=== PATIENT | male | born 1960 | race Caucasian/White ===

== ENCOUNTER → 2016-10-14 | Outpatient (CLI) | payer OTHER ==
--- NOTE | 2016-10-14 19:52 | CT ---
EXAMINATION TYPE: CT abdomen pelvis w con DATE OF EXAM: 10/14/2016 7:33 PM COMPARISON: NONE HISTORY: Pt states of LLQ lump and abdominal pain. Hx of diverticulosis. CT DLP: 956.8 mGycm Automated exposure control for dose reduction was used. TECHNIQUE: Helical acquisition of images was performed from the lung bases through the pelvis. CONTRAST: Performed with Oral Contrast and with IV Contrast, patient injected with 100 mL of Omnipaque 300. FINDINGS: Lung bases are clear. There is no pleural effusion. Liver spleen pancreas gallbladder appear normal. Bile ducts are not dilated. There is a left adrenal 2 cm nodule. Kidneys show satisfactory contrast opacification. There is no hydronephrosis. There is n o retroperitoneal adenopathy. There is no ascites. There is wall thickening and fat stranding involving the lower descending colon and the proximal sigm oid colon. There are multiple sigmoid diverticula. Bladder distends smoothly. Appendix appears normal . IMPRESSION: THERE IS A LONG SEGMENT OF LOWER DESCENDING COLON AND PROXIMAL SIGMOID COLON WITH INFLAMMATORY CHANGE S CONSISTENT WITH DIVERTICULITIS OR COLITIS. SIGMOID DIVERTICULOSIS. NORMAL APPENDIX. NO ABSCESS SEEN . 2 CM LEFT ADRENAL NODULE.
== END | disposition home or self-care (01) ==
LOC: RADCTMAIN 19:09
PROVIDERS: ATTEND Family Medicine
DX: K57.30 Diverticulosis of large intestine without perforation or abscess without bleeding (principal); E27.8 Other specified disorders of adrenal gland
CPT/HCPCS: 74177; Q9967

== ENCOUNTER 2018-08-18 09:32 | Inpatient (IN) | payer OTHER ==
[2018-08-18] MEDS ORDERED: KETOROLAC 30 MG/ML 1 ML VIAL IVP STA (10:21)
[2018-08-18] MEDS ORDERED: ONDANSETRON 4 MG/2 ML VIAL IVP STA (10:21)
[2018-08-18] MEDS ORDERED: SODIUM CHLORIDE 0.9% 500 ML 500 ML IV STA (10:21)
--- NOTE | 2018-08-18 10:24 | ED ---
General Adult HPI - General Chief complaint: Abdominal Pain Stated complaint: RT FLANK PAIN, NAUSEA Time Seen by Provider: 08/18/18 10:07 Source: patient Mode of arrival: ambulatory Limitations: no limitations - History of Present Illness Initial comments: Dictation was produced using [employer] dictation software. please excuse any grammatical, word or spelling errors. Chief Complaint: 58-year-old male recently admitted for pneumonia presents with postprandial abdominal pain History of Present Illness: Is 4-year-old male presents with chief complaint of abdominal pain he has past medical history of dyslipidemia, hypertension and pneumonia. Patient's past medical history of hernia repair. Patient states that over the past several days he's been having gradually worsening right upper quadrant pain. He states that this pain is constant and exacerbated with oral intake. Patient states pain is sharp and severe radiates to the back. Patient also having some constitutional symptoms including chills and night sweats. Patient states his symptoms were severe overnight and he was unable to sleep. This morning he woke with worsening sharp pain came to the emergency department. Patient denies any nausea vomiting. Patient states he's been having bowel movements however less frequent than usual. Denies any hard stools. No history of abdominal surgery outside of hernia surgery. The ROS documented in this emergency department record has been reviewed and confirmed by me. Those systems with pertinent positive or negative responses have been documented in the HPI. All other systems are other negative and/or noncontributory. PHYSICAL EXAM: General Impression: Alert and oriented x3, not in acute distress HEENT: Normocephalic atraumatic, extra-ocular movements intact, pupils equal and reactive to light bilaterally, mucous membranes moist. Cardiovascular: Heart regular rate and rhythm, S1&S2 audible, no murmurs, rubs or gallops Chest: Lungs clear to auscultation bilaterally, no rhonchi, no wheeze, no rales Abdomen: Right upper quadrant abdominal pain to palpation, positive Feliz sign. Musculoskeletal: Pulses present and equal in all extremities, no peripheral edema Motor: Power 5/5 bilaterally, no focal deficits noted Neurological: CN II-XII grossly intact, no focal motor or sensory deficits noted Skin: Intact with no visualized rashes Psych: Normal affect and mood ED course: 58-year-old male with right upper quadrant pain. Signs upon arrival are within acceptable limits. Abdominal examination is positive for Feliz's sign. Patient in mildly acute distress secondary to pain. Laboratory evaluation obtained. Leukocytosis of 15.2. Rest of CBC unremarkable. Coag panel shows INR 1.2. Metabolic panel shows mild transaminitis with alk phos of 213. No elevated bilirubins. Urinalysis unremarkable. Abdominal ultrasound was obtained showing hypoechogenicity of the pancreatic parenchyma which may relate to pancreatitis. There is also pain hepatic vein thrombosis with heterogeneity in the hepatic parenchyma. Is also right hepatic mass of 4.3 cm. Fundings could represent hepatocellular carcinoma. There is also multiple hepatic cysts. Mild gallbladder wall thickening however does not suggest acute cholecystitis. Given hepatic vein thrombosis in acute onset of symptoms. Restart patient on heparin. Discussed patient case with Dr. Cerrato gastroenterology who is agreeable for patient be admitted here in this hospital. Patient also given Unasyn for possible intra- abdominal infection. Vascular surgery and oncology be on consult. Be admitted. - Related Data Home Medications Medication Instructions Recorded Confirmed amLODIPine BESYLATE/BENAZEPRIL 1 cap PO Q48H 08/18/18 08/18/18 [Lotrel 10-20 MG] Allergies Allergy/AdvReac Type Severity Reaction Status Date / Time decongestant AdvReac chest Uncoded 10/08/15 07:51 tightness Review of Systems ROS Statement: Those systems with pertinent positive or pertinent negative responses have been documented in the HPI. ROS Other: All systems not noted in ROS Statement are negative. Past Medical History Past Medical History: Hypertension, Pneumonia History of Any Multi-Drug Resistant Organisms: None Reported Past Surgical History: Hernia Repair Past Anesthesia/Blood Transfusion Reactions: No Reported Reaction Past Psychological History: No Psychological Hx Reported Smoking Status: Current every day smoker Past Alcohol Use History: Rare Past Drug Use History: Marijuana General Exam Limitations: no limitations Course Vital Signs 08/18/18 08/18/18 09:45 12:35 Temperature 98.1 F Pulse Rate 96 78 Respiratory 18 18 Rate Blood Pressure 141/77 98/60 O2 Sat by Pulse 98 96 Oximetry Medical Decision Making - Lab Data Result diagrams: 08/18/18 10:38 08/18/18 10:38 Lab Results 08/18/18 08/18/18 08/18/18 Range/Units 10:38 10:38 10:38 WBC 15.2 H (3.8-10.6) k/uL RBC 3.65 L (4.30-5.90) m/uL Hgb 11.8 L (13.0-17.5) gm/dL Hct 35.7 L (39.0-53.0) % MCV 97.9 D (80.0-100.0) fL MCH 32.3 (25.0-35.0) pg MCHC 33.0 (31.0-37.0) g/dL RDW 13.2 (11.5-15.5) % Plt Count 453 H (150-450) k/uL Neutrophils % 85 % Lymphocytes % 7 % Monocytes % 6 % Eosinophils % 1 % Basophils % 0 % Neutrophils # 12.9 H (1.3-7.7) k/uL Lymphocytes # 1.1 (1.0-4.8) k/uL Monocytes # 0.9 (0-1.0) k/uL Eosinophils # 0.2 (0-0.7) k/uL Basophils # 0.0 (0-0.2) k/uL PT (9.0-12.0) sec INR (<1.2) Sodium 133 L (137-145) mmol/L Potassium 3.8 (3.5-5.1) mmol/L Chloride 100 (98-107) mmol/L Carbon Dioxide 23 (22-30) mmol/L Anion Gap 10 mmol/L BUN 14 (9-20) mg/dL Creatinine 0.51 L (0.66-1.25) mg/dL Est GFR (CKD-EPI)AfAm >90 (>60 ml/min/1.73 sqM) Est GFR (CKD-EPI)NonAf >90 (>60 ml/min/1.73 sqM) Glucose 114 H (74-99) mg/dL Calcium 8.8 (8.4-10.2) mg/dL Total Bilirubin 1.0 (0.2-1.3) mg/dL AST 48 (17-59) U/L ALT 110 H (21-72) U/L Alkaline Phosphatase 313 H (38-126) U/L Total Creatine Kinase 21 L (55-170) U/L CK-MB (CK-2) <0.2 (0.0-2.4) ng/mL CK-MB (CK-2) Rel Index Troponin I <0.012 (0.000-0.034) ng/mL Total Protein 7.5 (6.3-8.2) g/dL Albumin 3.2 L (3.5-5.0) g/dL Lipase 58 (23-300) U/L Urine Color Urine Appearance (Clear) Urine pH (5.0-8.0) Ur Specific [place] (1.001-1.035) Urine Protein (Negative) Urine Glucose (UA) (Negative) Urine Ketones (Negative) Urine Blood (Negative) Urine Nitrite (Negative) Urine Bilirubin (Negative) Urine Urobilinogen (<2.0) mg/dL Ur Leukocyte Esterase (Negative) 08/18/18 08/18/18 Range/Units 10:38 10:38 WBC (3.8-10.6) k/uL RBC (4.30-5.90) m/uL Hgb (13.0-17.5) gm/dL Hct (39.0-53.0) % MCV (80.0-100.0) fL MCH (25.0-35.0) pg MCHC (31.0-37.0) g/dL RDW (11.5-15.5) % Plt Count (150-450) k/uL Neutrophils % % Lymphocytes % % Monocytes % % Eosinophils % % Basophils % % Neutrophils # (1.3-7.7) k/uL Lymphocytes # (1.0-4.8) k/uL Monocytes # (0-1.0) k/uL Eosinophils # (0-0.7) k/uL Basophils # (0-0.2) k/uL PT 12.3 H (9.0-12.0) sec INR 1.2 H (<1.2) Sodium (137-145) mmol/L Potassium (3.5-5.1) mmol/L Chloride (98-107) mmol/L Carbon Dioxide (22-30) mmol/L Anion Gap mmol/L BUN (9-20) mg/dL Creatinine (0.66-1.25) mg/dL Est GFR (CKD-EPI)AfAm (>60 ml/min/1.73 sqM) Est GFR (CKD-EPI)NonAf (>60 ml/min/1.73 sqM) Glucose (74-99) mg/dL Calcium (8.4-10.2) mg/dL Total Bilirubin (0.2-1.3) mg/dL AST (17-59) U/L ALT (21-72) U/L Alkaline Phosphatase (38-126) U/L Total Creatine Kinase (55-170) U/L CK-MB (CK-2) (0.0-2.4) ng/mL CK-MB (CK-2) Rel Index Troponin I (0.000-0.034) ng/mL Total Protein (6.3-8.2) g/dL Albumin (3.5-5.0) g/dL Lipase (23-300) U/L Urine Color Yellow Urine Appearance Clear (Clear) Urine pH 6.5 (5.0-8.0) Ur Specific [place] 1.013 (1.001-1.035) Urine Protein Trace H (Negative) Urine Glucose (UA) Negative (Negative) Urine Ketones Negative (Negative) Urine Blood Negative (Negative) Urine Nitrite Negative (Negative) Urine Bilirubin Negative (Negative) Urine Urobilinogen 2.0 (<2.0) mg/dL Ur Leukocyte Esterase Negative (Negative) Disposition Clinical Impression: Hepatic vein thrombosis Disposition: ADMITTED IP TO THIS HOSP Condition: Fair Referrals: Mary Alvarado DO [Primary Care Provider] - 1-2 days Decision Time: 13:40
[2018-08-18 11:20] LABS: INR 1.2 (<1.2); Prothrombin Time 12.3 sec (9.0-12.0)
[2018-08-18 11:25] LABS: ALT 110 U/L (21-72); AST 48 U/L (17-59); Albumin 3.2 g/dL (3.5-5.0); Alkaline Phosphatase 313 U/L (38-126); Anion Gap 10 mmol/L; Blood Urea Nitrogen 14 mg/dL (9-20); Calcium 8.8 mg/dL (8.4-10.2); Carbon Dioxide 23 mmol/L (22-30); Chloride 100 mmol/L (98-107); Glucose 114 mg/dL (74-99); Lipase 58 U/L (23-300); Potassium 3.8 mmol/L (3.5-5.1); Sodium 133 mmol/L (137-145); Total Protein 7.5 g/dL (6.3-8.2)
[2018-08-18 11:32] LABS: Basophils % (A) 0 %; Eosinophils # (A) 0.2 k/uL (0-0.7); Eosinophils % (A) 1 %; HCT 35.7 % (39.0-53.0); HGB 11.8 gm/dL (13.0-17.5); Lymphocytes # (A) 1.1 k/uL (1.0-4.8); Lymphocytes % (A) 7 %; MCH 32.3 pg (25.0-35.0); Mean Platelet Volume 7.1; Monocytes # (A) 0.9 k/uL (0-1.0); Monocytes % (A) 6 %; Neutrophils # (A) 12.9 k/uL (1.3-7.7); Neutrophils % (A) 85 %; Platelet Count 453 k/uL (150-450); RBC 3.65 m/uL (4.30-5.90); RDW 13.2 % (11.5-15.5); WBC 15.2 k/uL (3.8-10.6)
[2018-08-18 11:35] LABS: Appearance,Urine Clear (Clear); Bilirubin,Urine Negative (Negative); Blood,Urine Negative (Negative); Color,Urine Yellow; Glucose,Urine (UA) Negative (Negative); Ketones,Urine Negative (Negative); Leukocyte Esterase,Urine Negative (Negative); Nitrite,Urine Negative (Negative); PH, Urine 6.5 (5.0-8.0); Protein,Urine Trace (Negative); Specific Gravity,Urine 1.013 (1.001-1.035)
[2018-08-18 11:36] LABS: MCV 97.9 fL (80.0-100.0)
[2018-08-18 11:37] LABS: Creatine Kinase 21 U/L (55-170)
[2018-08-18 11:50] LABS: Creatine Kinase MB <0.2 ng/mL (0.0-2.4); Troponin I <0.012 ng/mL (0.000-0.034)
--- NOTE | 2018-08-18 11:58 | US ---
EXAMINATION TYPE: US abdomen complete DATE OF EXAM: 08/18/2018 COMPARISON: CT abdomen pelvis dated 10/14/2016 CLINICAL HISTORY: abdominal pain. Right flank pain. NPO per patient. EXAM MEASUREMENTS: Liver Length: 23.1 cm Gallbladder Wall: 0.4 cm CBD: 0.5 cm CHD: 0.5 cm Spleen: 14.1 cm Right Kidney: 13.1 x 6.2 x 6.6 cm Left Kidney: 11.9 x 5.4 x 5.9 cm Pancreas: Decreased echogenicity. Slightly prominent duct although nondilated. Liver: Enlarged in size, course and lobular in appearance. Right lobe cystic appearing cluster - 1. 1 x 1.0 x 1.0 cm. Left anterior lobe cystic appearing lesion - 2.3 x 2.3 x 1.9 cm. Right lobe focal heterogenicity vs lesion - 4.3 x 4.3 x 3.9 cm. No vascular flow visualized in intrahepatic MPV wit h wall thickening Gallbladder: Enlarged in size with wall thickening. Evidence for sonographic Feliz's sign: neg CBD: wnl CHD: wnl Spleen: Enlarged in size Right Kidney: Appears enlarged in size Left Kidney: wnl Upper IVC: limited visualization Abd Aorta: no AAA visualized The intrahepatic portion of the IVC and proximal abdominal aorta are within normal limits. There is no evidence of cholelithiasis. Common bile duct is unremarkable. The visualized portions of the pollard creas are decreased in echogenicity. The spleen is enlarged. Kidneys are symmetric and free of hydr onephrosis. No renal lesions are seen. IMPRESSION: 1. Hypoechogenicity of the pancreatic parenchyma may correlate with pancreatitis. Correlate with seru m laboratory values. Additionally there is slight prominence of the main pancreatic duct that could b e further evaluated with MRCP. 2. Main hepatic vein thrombosis. Heterogeneity of the hepatic parenchyma may relate to the thrombosis . Additionally there is an ill-defined right hepatic mass measuring 4.3 cm. Tumor thrombus within the main hepatic vein is a possibility and would suggest hepatocellular carcinoma. Further characterizat ion is recommended with MRI abdomen (liver mass protocol). 3. Multiple hepatic cysts. 4. Gallbladder wall thickening may relate to the adjacent hepatocellular disease as there is no commo n bile duct enlargement to suggest acute cholecystitis. 5. Splenomegaly is likely on the basis of portal venous hypertension.
[2018-08-18] MEDS ORDERED: HEPARIN SODIUM,PORCINE 10,000 UNIT/ML 1 ML VIAL IV ONE (12:23)
[2018-08-18] MEDS ORDERED: AMPICILLIN-SULBACTAM 3 GM in SODIUM CHLORIDE 0.9% 100 ML IVPB STA (12:38)
[2018-08-18] MEDS: HEPARIN SOD,PORK IN 0.45% NACL 25,000 UNIT in 0.45% NACL 1 250ML.BAG IV SCH (12:49)
[2018-08-18] MEDS ORDERED: ONDANSETRON 4 MG/2 ML VIAL IVP PRN (13:41)
[2018-08-18] MEDS ORDERED: MORPHINE SULFATE 4 MG/ML SYRINGE IV PRN (13:41)
[2018-08-18] MEDS ORDERED: NALOXONE 0.4 MG/ML 1 ML VIAL IV PRN (13:41)
[2018-08-18] MEDS ORDERED: ACETAMINOPHEN TAB 325 MG TAB PO PRN (13:41)
--- NOTE | 2018-08-18 15:34 | XR ---
EXAMINATION TYPE: XR KUB DATE OF EXAM: 08/18/2018 CLINICAL HISTORY: Abdominal pain TECHNIQUE: Single upright abdominal radiograph was obtained. COMPARISON: None. FINDINGS: No dilated large or small bowel. Scattered few air-fluid levels within nondilated small bow el suggests ileus. Descending colonic air is noted. No pneumoperitoneum. Osseous structures are gross ly intact with mild S-shaped scoliotic curvature and mild femoral acetabular arthropathy. No suspicio us calcifications in the abdomen. IMPRESSION: Few air-fluid levels within nondilated small bowel suggests mild ileus. No pneumoperitone um.
[2018-08-18] MEDS: SODIUM CHLORIDE 0.9% 1,000 ML IV SCH (19:49)
[2018-08-18] MEDS ORDERED: ALPRAZolam 0.25 MG TAB PO PRN (21:25)
[2018-08-18] MEDS ORDERED: HYDROmorphone 0.5 MG/0.5 ML SYRINGE IVP PRN (21:25)
[2018-08-18] MEDS ORDERED: TEMAZEPAM 15 MG CAP PO PRN (21:25)
--- NOTE | 2018-08-18 22:10 | XR ---
History: ITS.REASON XR Reason: pneumonia Exam: XR CXR 1 VIEW Comparison: None available FINDINGS: Small linear opacity at the lateral right base may represent atelectasis or scar. The lungs are otherwise clear. The cardiac and mediastinal contours appear within limits. The visualized osseous structures appear within limits. IMPRESSION: Small linear opacity at the lateral right base may represent atelectasis or scar. The lungs are otherwise clear.
[2018-08-18] MEDS: IOPAMIDOL-300 CONTRAST 30 ML VIAL (ORAL USE) PO PRN ×2 (22:15→23:23)
[2018-08-18] MEDS: HYDROcodone/APAP 5-325MG 1 EACH TAB PO PRN (22:56)
--- NOTE | 2018-08-19 02:26 | CT ---
History: ITS.REASON CT Reason: hepatic vein thrombosis Exam: CT CHEST With Contrast Technique more: CTDI is 8.8 mGy and DLP is 905.6 mGy-cm. Technique more: This CT exam was performed using one or more of the following dose reduction techniques: automated exposure control, adjustment of the mA and/or kV according to patient size, and/or use of iterative reconstruction technique. Comparison: None available FINDINGS: The central airways are patent. Mild basilar atelectasis. No focal consolidation. No nodule or mass identified. Thoracic aorta appears within limits. Mild LAD coronary calcification. No evidence of large central or hilar pulmonary embolism. No pericardial or pleural effusion. No lymphadenopathy. IMPRESSION: Mild basilar atelectasis. Mild LAD coronary calcification. Exam: CT ABDOMEN + PELVIS With Contrast Technique more: CTDI is 8.8 mGy and DLP is 905.6 mGy-cm. Technique more: This CT exam was performed using one or more of the following dose reduction techniques: automated exposure control, adjustment of the mA and/or kV according to patient size, and/or use of iterative reconstruction technique. Comparison: 10/14/2016 FINDINGS: Heterogeneous appearance of the liver most of which may be related to altered perfusion given the left portal vein occlusion and near occlusion of the right portal vein. Heterogeneous masslike area at the posterior liver measuring approximately 8 x 4.6 x 9.3 cm axial 19 series 301 and coronal 49. Hepatic cyst. Left adrenal nodule has not significantly changed in appearance since 2017. Small nonobstructing stone lower pole right kidney. Bilateral perinephric stranding is nonspecific. Symmetric nephrograms without hydronephrosis. The other solid organs and partially contracted gallbladder appear within limits. Prominent-appearing katina hepatis nodes. Abnormal appearance of the descending left colon with approximate 4 cm collection of adjacent extraluminal heterogeneous soft tissue and foci of gas for example axial 33 series 301 and coronal 36 concerning for diverticulitis with localized contained perforation. Areas of wall thickening of the descending and proximal sigmoid colon may be reactive with infiltrative process or neoplasm not excluded. No small bowel dilation or free air in the upper abdomen. Normal caliber appendix without secondary signs. Fat-containing right inguinal hernia. The bladder appears within limits. Small pelvic free fluid. Small fat- containing umbilical hernia again noted. IMPRESSION: Abnormal appearance of the descending left colon with approximate 4 cm collection of adjacent extraluminal heterogeneous soft tissue and foci of gas for example axial 33 series 301 and coronal 36 concerning for diverticulitis with localized contained perforation. Areas of wall thickening of the descending and proximal sigmoid colon may be reactive with infiltrative process or neoplasm not excluded. Heterogeneous appearance of the liver most of which may be related to altered perfusion given the left portal vein occlusion and near occlusion of the right portal vein. The main portal vein, SMV and splenic vein otherwise appear patent-containing contrast. Heterogeneous masslike area at the posterior liver measuring approximately 8 x 4.6 x 9.3 cm axial 19 series 301 and coronal 49. Considerations would include developing abscess/phlegmon from complication of diverticulitis, metastatic disease or primary liver neoplasm among other etiologies and requires further clinical correlation. May consider further characterization with MRI with liver mass protocol. Left adrenal nodule has not significantly changed in appearance since 2017. [employer] 08/19/18 02:22 Call Nurse 3S FABIO Moreno on 08/19 02:21 (-05:00)
[2018-08-19 03:56] LABS: Basophils % (A) 0 %; Eosinophils # (A) 0.1 k/uL (0-0.7); Eosinophils % (A) 1 %; HCT 32.2 % (39.0-53.0); HGB 10.7 gm/dL (13.0-17.5); Lymphocytes # (A) 1.4 k/uL (1.0-4.8); Lymphocytes % (A) 13 %; MCHC 33.2 g/dL (31.0-37.0); MCV 99.5 fL (80.0-100.0); Mean Platelet Volume 6.2; Monocytes # (A) 0.5 k/uL (0-1.0); Monocytes % (A) 5 %; Neutrophils # (A) 8.7 k/uL (1.3-7.7); Neutrophils % (A) 81 %; Platelet Count 391 k/uL (150-450); RBC 3.24 m/uL (4.30-5.90); RDW 13.1 % (11.5-15.5); WBC 10.8 k/uL (3.8-10.6)
[2018-08-19 04:01] LABS: ALT 117 U/L (21-72); AST 71 U/L (17-59); Albumin 2.7 g/dL (3.5-5.0); Alkaline Phosphatase 400 U/L (38-126); Anion Gap 8 mmol/L; Blood Urea Nitrogen 8 mg/dL (9-20); Calcium 8.2 mg/dL (8.4-10.2); Carbon Dioxide 24 mmol/L (22-30); Chloride 104 mmol/L (98-107); Glucose 92 mg/dL (74-99); Potassium 4.1 mmol/L (3.5-5.1); Sodium 136 mmol/L (137-145); Total Bilirubin 0.7 mg/dL (0.2-1.3); Total Protein 6.5 g/dL (6.3-8.2)
[2018-08-19] MEDS: HYDROcodone/APAP 5-325MG 1 EACH TAB PO PRN ×2 (05:14→12:18)
[2018-08-19] MEDS: HEPARIN SOD,PORK IN 0.45% NACL 25,000 UNIT in 0.45% NACL 1 250ML.BAG IV SCH (05:15)
[2018-08-19] MEDS: HEPARIN SODIUM,PORCINE 5,000 UNIT/ML 1 ML VIAL IV PRN ×3 (05:22→18:24)
--- NOTE | 2018-08-19 06:21 | HP ---
HISTORY AND PHYSICAL DATE OF SERVICE: 08/18/2018 CHIEF COMPLAINT: Abdominal pain. HISTORY OF PRESENT ILLNESS: This 58-year-old gentleman with a past medical history of multiple medical problems including hypertension, pneumonia, history of hernia repair, history of nicotine dependence being followed by Dr. 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 The patient apparently had an episode of pneumonia in June. Patient was given antibiotics, but subsequently patient was complaining of significant weakness. The patient is tired and currently the patient is complaining of abdominal pain, abdominal pain which radiated to the left side. The patient came to [facility] and admitted for further evaluation and treatment. The patient also complains of dyspepsia. On admission the patient underwent ultrasound of the abdomen which showed multiple findings such as possibly lobular liver with cystic appearing structure and heterogeneous lesion was also noted. The patient also had hypoechogenicity in the the pancreatic parenchyma with possible pancreatitis. The patient also had hepatic vein thrombosis. The patient also had gallbladder thickening and splenomegaly. The patient was admitted for further evaluation and treatment. There is no history of any fever, rigors. No history of headache, loss of consciousness, seizures. Patient also had weight loss about 7 pounds at this time. PAST MEDICAL HISTORY: History of hypertension, history of recent pneumonia, hernia repair, history umbilical hernia. MEDICATIONS: Medications prior to admission include Lotrel 10/20 mg p.o. q.48 hours. ALLERGIES: Allergies are DECONGESTANT. FAMILY HISTORY: History of CAD, CABG, in 89-year-old. SOCIAL HISTORY: History of alcohol, THC, smoking. REVIEW OF SYSTEMS: ENT: No diminished hearing or diminished vision. CARDIOVASCULAR SYSTEM: No angina or palpitations. RESPIRATORY SYSTEM: No cough or hemoptysis. GI: As mentioned earlier. : No dysuria. NERVOUS SYSTEM: No numbness or weakness. ALLERGY/IMMUNOLOGY: No history of asthma or hayfever. MUSCULOSKELETAL: As mentioned earlier. HEMATOLOGY/ONCOLOGY: No history of anemia. ENDOCRINE: No history of diabetes mellitus or hypothyroidism. CONSTITUTIONAL: As mentioned earlier. DERMATOLOGY: Negative. RHEUMATOLOGY: Negative. PSYCHIATRY: As mentioned earlier. PHYSICAL EXAMINATION: The patient is alert and oriented x3. Pulse is 84, blood pressure 101/65, respirations 16, temperature 98.2, pulse ox 95% on room air. HEENT: Conjunctivae normal. NECK: No jugular venous distention. CARDIOVASCULAR: S1, S2 muffled. RESPIRATORY: Breath sounds diminished at the bases. A few scattered rhonchi. No crackles. ABDOMEN: Soft. Slight distention. Otherwise, mild tenderness. No mass palpable. No ascites. Bowel sounds diminished. No hepatosplenomegaly clinically. LEGS: No edema. No swelling. NERVOUS SYSTEM: Higher functions as mentioned earlier. Moves all 4 limbs. No focal motor deficits. LYMPHATICS: No lymphadenopathy of the neck, axillae or groin. SKIN: No ulcer, rash or bleeding. JOINTS: No active deforming arthropathy. LABS: WBC 15.2, hemoglobin 11.8. INR is 1.2. Sodium 133, otherwise ALT is 110. ASSESSMENT: 1. Abdominal pain with hepatic lesion, rule out malignancy. 2. Hepatic venous thrombosis. 3. History of recent pneumonia. 4. History of recent weight loss. 5. Hypokalemia. 6. Increased ALT and alkaline phosphatase. 7. Mild coagulopathy. 8. Increased WBC. 9. Anemia of undetermined recent origin. 10.Hypertension. 11.History of hypercholesterolemia. 12.History of hernia repair. 13.History of nicotine dependence. 14.History of THC. RECOMMENDATIONS AND DISCUSSION: In this 58-year-old gentleman who presented with multiple complex medical issues , at this time I recommend to continue current medications, continue symptomatic treatment. Otherwise at this time I recommend repeat labs. Symptomatic treatment. Gastroenterology and hematology consultation. Patient started on IV heparin. The exact etiology of the hepatic venous thrombosis unclear at this time. We will start the workup with a CT scan of the abdomen pelvis and chest also. Otherwise, overall prognosis extremely guarded because of multiple complex medical issues. Further recommendations to follow A copy of dictation forwarded to Dr. Alvarado who is the primary physician. MMODL / IJN: [id number] / [facility] CENTERMeghann
[2018-08-19] MEDS: PANTOPRAZOLE 40 MG/10 ML VIAL IV SCH (09:43)
[2018-08-19] MEDS: amLODIPine 10 MG TAB PO SCH (09:44)
[2018-08-19] MEDS: LISINOPRIL 20 MG TAB PO SCH (09:44)
[2018-08-19] MEDS: LEVOFLOXACIN 500MG-D5W PMX 500 MG in DEXTROSE/WATER 1 100ML.BAG IVPB SCH (13:54)
[2018-08-19] MEDS: metroNIDAZOLE-NS PMX 500 MG in SALINE 1 100ML.BAG IVPB SCH (17:00)
[2018-08-19] MEDS: SODIUM CHLORIDE 0.9% 1,000 ML IV SCH (17:01)
--- NOTE | 2018-08-19 20:21 | PN ---
PROGRESS NOTE DATE OF SERVICE: 08/19/2018 This 58-year-old gentleman admitted with abdominal pain had hepatic venous thrombosis. The patient underwent a CT scan of the chest, abdomen and pelvis with contrast last night, which showed abnormal appearance of the descending left colon with heterogeneous collection, possibly diverticulitis or contained perforation and heterogeneous appearance of liver and portal occlusion in portal vein, heterogeneous masslike lesion in the posterior liver also noted. PAST MEDICAL HISTORY: Reviewed. REVIEW OF SYSTEM: CARDIOVASCULAR: No angina. RESPIRATORY: As mentioned. GI: As mentioned earlier. : As mentioned. NERVOUS SYSTEM: No numbness. CURRENT MEDICATIONS: Reviewed and include: 1. Tylenol 650 q.6h p.r.n. 2. [place] 5 mg p.r.n. 3. Xanax. 4. Norvasc. 5. Heparin. 6. Dilaudid. 7. Levaquin 500 mg daily. 8. Zestril. 9. Flagyl 500 mg a day. 10.Zofran. 11.Protonix. 12.Restoril. PHYSICAL EXAM: Patient is alert, oriented x3. Pulse 90, blood pressure 140/60, respiration 18, temperature 98 degrees, pulse ox 94 percent. Oral mucosa moist. Neck is no jugular venous distention. No carotid bruit. No lymph node enlargement. CARDIOVASCULAR: S1, S2. RESPIRATORY: Breath sounds diminished in the bases. No rhonchi, no crackles. ABDOMEN: Soft. Mild diffuse tenderness. No guarding, no mass palpable. LEGS: No edema. NERVOUS SYSTEM: No focal deficits. LABS: At this time shows WBC 10.8, hemoglobin 10.7, sodium 136. AST, ALT and other labs are noted. Alkaline phosphatase is 400. C-reactive protein is 247, albumin is 2.7. ASSESSMENT: 1. Acute abdominal pain with possible acute diverticulitis, rule out perforation and abscess of the descending colon. 2. Hepatic venous thrombosis. 3. History of recent pneumonia. 4. History of recent weight loss. 5. Hypokalemia. 6. Increased ALT and alkaline phosphatase. 7. Mild coagulopathy. 8. Increased WBC. 9. Anemia of undetermined origin. 10.Hypertension. 11.History of hypercholesteremia. 12.History of hernia repair. 13.History of nicotine dependence. 14.History of THC. 15.FULL CODE. RECOMMENDATIONS AND DISCUSSION: I recommend to continue current management and continue with broad-spectrum IV antibiotics. Levaquin, Flagyl. Cultures negative. Follow closely with multiple consultants. Continue with IV heparin. Possible colonoscopy and other workup later. Otherwise prognosis guarded because of multiple complex medical issues. Further recommendations to follow. We will await Hematology Oncology evaluation as well. Further recommendations to follow. Patient might need liver biopsy and associated workup also. MMODL / IJN: [id number] / MTDMeghann
--- NOTE | 2018-08-19 20:27 | P.GSCN ---
History of Present Illness Consult date: 08/19/18 Reason for Consult: hepatic vein thrombosis History of present illness: 58 year old male with recent history of pneumonia which was treated in presented to the hospital yesterday secondary to abdominal pain at his right upper quadrant which started a couple days prior and has been getting progressively worse. Patient states having radiating pain across abdomen to his back. He denies any fevers, nausea, vomiting, chest pain or shortness of breath. Admits to night sweats, and chills overnight. Review of Systems - Constitutional Reports weakness, Reports weight loss - Cardiovascular Denies chest pain, Denies claudication, Denies lightheadedness - Gastrointestinal Reports abdominal pain - Musculoskeletal Reports as per HPI Past Medical History Past Medical History: Hypertension, Pneumonia Additional Past Medical History / Comment(s): Recent pneumonia June, tx with antibiotics, past high cholesterol and htn but pt and had a lifestyle change 2 yrs aog and now pt has been taken off statin and his physician is weaning him off antihypertensive med, since lifestyle changes pt has lost 32#, past colon polyps (bening) and diverticular disease. History of Any Multi-Drug Resistant Organisms: None Reported Past Surgical History: Hernia Repair Additional Past Surgical History / Comment(s): Umbilical hernia repair, colonoscopy/polypectomy, rhinoplasty, bilateral cataracts removed with lens implants, vasectomy. Past Anesthesia/Blood Transfusion Reactions: No Reported Reaction Smoking Status: Current every day smoker - Past Family History Father Family Medical History: Coronary Artery Disease (CAD) Additional Family Medical History / Comment(s): Father had CABG. He lived to be 93 yrs old. Mother Family Medical History: Dementia Additional Family Medical History / Comment(s): Mother is 88yrs old. Medications and Allergies Home Medications Medication Instructions Recorded Confirmed Type amLODIPine BESYLATE/BENAZEPRIL 1 cap PO Q48H 08/18/18 08/18/18 History [Lotrel 10-20 MG] Allergies Allergy/AdvReac Type Severity Reaction Status Date / Time decongestant AdvReac chest Uncoded 10/08/15 07:51 tightness Surgical - Exam Vital Signs Temp Pulse Resp BP Pulse Ox 98.1 F 96 18 141/77 98 08/18/18 09:45 08/18/18 09:45 08/18/18 09:45 08/18/18 09:45 08/18/18 09:45 palpable dp and pt pulses - General well developed, well nourished, no distress - Eyes PERRL, normal ocular movement - ENT normal pinna, normal nares - Neck no masses - Respiratory normal expansion left: dullness, wheezing, rales, absent breath sounds Results - Labs 08/19/18 03:31 08/19/18 03:31 Abnormal Lab Results - Last 24 Hours (Table) 08/18/18 08/18/18 08/19/18 Range/Units 21:37 21:37 03:31 WBC 10.8 H (3.8-10.6) k/uL RBC 3.24 L (4.30-5.90) m/uL Hgb 10.7 L (13.0-17.5) gm/dL Hct 32.2 L (39.0-53.0) % Neutrophils # 8.7 H (1.3-7.7) k/uL ESR 119 H (0-15) mm/hr APTT (22.0-30.0) sec Sodium (137-145) mmol/L BUN (9-20) mg/dL Creatinine (0.66-1.25) mg/dL Calcium (8.4-10.2) mg/dL AST (17-59) U/L ALT (21-72) U/L Alkaline Phosphatase (38-126) U/L C-Reactive Protein 247.0 H (<10.0) mg/L Albumin (3.5-5.0) g/dL 08/19/18 08/19/18 08/19/18 Range/Units 03:31 11:20 17:27 WBC (3.8-10.6) k/uL RBC (4.30-5.90) m/uL Hgb (13.0-17.5) gm/dL Hct (39.0-53.0) % Neutrophils # (1.3-7.7) k/uL ESR (0-15) mm/hr APTT 41.5 H 38.9 H (22.0-30.0) sec Sodium 136 L (137-145) mmol/L BUN 8 L (9-20) mg/dL Creatinine 0.59 L (0.66-1.25) mg/dL Calcium 8.2 L (8.4-10.2) mg/dL AST 71 H (17-59) U/L ALT 117 H (21-72) U/L Alkaline Phosphatase 400 H (38-126) U/L C-Reactive Protein (<10.0) mg/L Albumin 2.7 L (3.5-5.0) g/dL Diabetes panel 08/19/18 Range/Units 03:31 Sodium 136 L (137-145) mmol/L Potassium 4.1 (3.5-5.1) mmol/L Chloride 104 (98-107) mmol/L Carbon Dioxide 24 (22-30) mmol/L BUN 8 L (9-20) mg/dL Creatinine 0.59 L (0.66-1.25) mg/dL Glucose 92 (74-99) mg/dL Calcium 8.2 L (8.4-10.2) mg/dL AST 71 H (17-59) U/L ALT 117 H (21-72) U/L Alkaline Phosphatase 400 H (38-126) U/L Total Protein 6.5 (6.3-8.2) g/dL Albumin 2.7 L (3.5-5.0) g/dL Calcium panel 08/19/18 Range/Units 03:31 Calcium 8.2 L (8.4-10.2) mg/dL Albumin 2.7 L (3.5-5.0) g/dL Pituitary panel 08/19/18 Range/Units 03:31 Sodium 136 L (137-145) mmol/L Potassium 4.1 (3.5-5.1) mmol/L Chloride 104 (98-107) mmol/L Carbon Dioxide 24 (22-30) mmol/L BUN 8 L (9-20) mg/dL Creatinine 0.59 L (0.66-1.25) mg/dL Glucose 92 (74-99) mg/dL Calcium 8.2 L (8.4-10.2) mg/dL Adrenal panel 08/19/18 Range/Units 03:31 Sodium 136 L (137-145) mmol/L Potassium 4.1 (3.5-5.1) mmol/L Chloride 104 (98-107) mmol/L Carbon Dioxide 24 (22-30) mmol/L BUN 8 L (9-20) mg/dL Creatinine 0.59 L (0.66-1.25) mg/dL Glucose 92 (74-99) mg/dL Calcium 8.2 L (8.4-10.2) mg/dL Total Bilirubin 0.7 (0.2-1.3) mg/dL AST 71 H (17-59) U/L ALT 117 H (21-72) U/L Alkaline Phosphatase 400 H (38-126) U/L Total Protein 6.5 (6.3-8.2) g/dL Albumin 2.7 L (3.5-5.0) g/dL - Imaging CT scan - abdomen: report reviewed, image reviewed Assessment and Plan (1) Hepatic vein thrombosis Current Visit: Yes Status: Acute Priority: High Code(s): I82.0 - BUDD- CHIARI SYNDROME SNOMED Code(s): 88440694 Plan: Agree with heparin gtt. No surgical intervention at this time. Recommend continuing heparin and bridging to oral anticoagulation Thank you for the consult.
--- NOTE | 2018-08-19 21:35 | P.CONS ---
History of Present Illness - Reason for Consult Consult date: 08/19/18 New Cancer Diagnosis Requesting physician: Chin Perez - Chief Complaint Abdominal Pain - History of Present Illness Mr. Johnson is a very pleasant 58 year old male with known history of diverticulosis, diverticulitis, COPD, Tobacco abuse, Daily ALcohol use, and a recent history of pneumonia which was treated in June. He stated that ever since he was diagnosed with pneumonia he has not fully recovered. He denies any personal or family history of clotting disorders, or cancers. He denies any personal history of cirrhosis or hepatits. He presented to the hospital with complaints of right upper quadrant abdominal pain that radiated to his right side and back. Over the past two days stated was getting progressively worse. He denies any fevers, nausea, vomiting, chest pain or shortness of breath. Admits to night sweats, and chills overnight. He has had a pprox 35-40LB weight loss over the past 1.5 years but stated him and his were trying to eat better. He also states the abdominal bloating and distention is new, he had a normal BM this am. Abdominal ultrasound was obtained showing hypoechogenicity of the pancreatic parenchyma which may relate to pancreatitis. A hepatic vein thrombosis with heterogeneity in the hepatic parenchyma was also identified. There was abnormality representing a right hepatic mass of 4.3 cm. COncern was for a picture of hepatocellular carcinoma. Multiple hepatic cysts were identified. Mild gallbladder wall thickening however does not suggest acute cholecystitis. Given hepatic vein thrombosis in acute onset of symptoms he was initiated on a heparin drip in the emergency department. CT scan was ordered and completed. GI was consulted as well as General and Vascular surgery. We have also been consulted for the concern of a malignancy picture. at bedside this evening during consultation. We reviewed their full medical history and current findings on CT scan. CT Findings revealed Heterogeneous massllike area at the posterior liver 8x4.6x9.3cm, hepatic cysts identified, Left unchanged adrenal nodule, nonspecific bilateral perinephric stranding. Descending left colon reveal 4c, collection of adjacent extralumal soft tissue and focal gas diverticultis with localized perforation. Review of Systems A 14 point review of systems was assessed and completed and all negative except HPI Past Medical History Past Medical History: Hypertension, Pneumonia Additional Past Medical History / Comment(s): Recent pneumonia June, tx with antibiotics, past high cholesterol and htn but pt and had a lifestyle change 2 yrs aog and now pt has been taken off statin and his physician is weaning him off antihypertensive med, since lifestyle changes pt has lost 32#, past colon polyps (bening) and diverticular disease. History of Any Multi-Drug Resistant Organisms: None Reported Past Surgical History: Hernia Repair Additional Past Surgical History / Comment(s): Umbilical hernia repair, colonoscopy/polypectomy, rhinoplasty, bilateral cataracts removed with lens implants, vasectomy. Past Anesthesia/Blood Transfusion Reactions: No Reported Reaction Smoking Status: Current every day smoker - Past Family History Father Family Medical History: Coronary Artery Disease (CAD) Additional Family Medical History / Comment(s): Father had CABG. He lived to be 93 yrs old. Mother Family Medical History: Dementia Additional Family Medical History / Comment(s): Mother is 88yrs old. Medications and Allergies Home Medications Medication Instructions Recorded Confirmed Type amLODIPine BESYLATE/BENAZEPRIL 1 cap PO Q48H 08/18/18 08/18/18 History [Lotrel 10-20 MG] Allergies Allergy/AdvReac Type Severity Reaction Status Date / Time decongestant AdvReac chest Uncoded 10/08/15 07:51 tightness Physical Exam Vitals: Vital Signs Temp Pulse Pulse Pulse Resp BP BP 08/19/18 12:00 97.9 F 87 16 100/63 08/19/18 08:00 98.0 F 90 18 114/67 08/19/18 04:00 97.5 F L 79 16 116/71 08/19/18 00:00 97.1 F L 94 16 121/72 08/18/18 20:00 98.4 F 91 16 107/63 08/18/18 18:40 87 109/69 08/18/18 17:45 84 16 101/65 08/18/18 16:00 98.2 F 82 15 105/66 Pulse Ox 08/19/18 12:00 98 08/19/18 08:00 94 L 08/19/18 04:00 93 L 08/19/18 00:00 95 08/18/18 20:00 94 L 08/18/18 18:40 97 08/18/18 17:45 95 08/18/18 16:00 97 Intake and Output 08/18/18 08/19/18 08/19/18 22:59 06:59 14:59 Intake Total 654.244 308.838 739.915 Output Total 250 300 1 Balance 404.244 8.838 738.915 Intake: IV 20 10 Invasive Line 2 20 10 Intake, IV Titration 174.244 288.838 149.915 Amount Ampicillin-Sulbactam 3 gm 10 In Sodium Chloride 0.9% 100 ml @ 200 mls/hr IVPB ONCE STA Rx#:[id number] Heparin Sod,Pork in 0.45% 104.244 128.838 149.915 NaCl 25,000 unit In 0.45 % NaCl 1 250ml.bag @ 18 UNITS/KG/HR 12.24 mls/hr IV .[id number] KATE Rx#: [id number] Sodium Chloride 0.9% 1, 60 160 000 ml @ 20 mls/hr IV . Q24H KATE Rx#:[id number] Oral 480 580 Output: Urine 250 300 Stool 1 Other: Voiding Method Urinal Urinal Urinal # Voids 1 1 Weight 68.4 kg 68.4 kg Gen: NAD, ALert and happy Head NC, NT Eye: Non-icteric Neck Supple No lymphadenopathy cervical or axilla Lungs: Diminished bibasilar expiratory wheeze, No increased effort Heart: RRR, S1s2 Abdomen: appears distended, bloated, although soft, non tender Ext: No edema Neuro - non-focal Results CBC & Chem 7: 08/19/18 03:31 08/19/18 03:31 Labs: Abnormal Lab Results - Last 24 Hours (Table) 08/18/18 08/18/18 08/19/18 Range/Units 21:37 21:37 03:31 WBC 10.8 H (3.8-10.6) k/uL RBC 3.24 L (4.30-5.90) m/uL Hgb 10.7 L (13.0-17.5) gm/dL Hct 32.2 L (39.0-53.0) % Neutrophils # 8.7 H (1.3-7.7) k/uL ESR 119 H (0-15) mm/hr APTT (22.0-30.0) sec Sodium (137-145) mmol/L BUN (9-20) mg/dL Creatinine (0.66-1.25) mg/dL Calcium (8.4-10.2) mg/dL AST (17-59) U/L ALT (21-72) U/L Alkaline Phosphatase (38-126) U/L C-Reactive Protein 247.0 H (<10.0) mg/L Albumin (3.5-5.0) g/dL 08/19/18 08/19/18 Range/Units 03:31 11:20 WBC (3.8-10.6) k/uL RBC (4.30-5.90) m/uL Hgb (13.0-17.5) gm/dL Hct (39.0-53.0) % Neutrophils # (1.3-7.7) k/uL ESR (0-15) mm/hr APTT 41.5 H (22.0-30.0) sec Sodium 136 L (137-145) mmol/L BUN 8 L (9-20) mg/dL Creatinine 0.59 L (0.66-1.25) mg/dL Calcium 8.2 L (8.4-10.2) mg/dL AST 71 H (17-59) U/L ALT 117 H (21-72) U/L Alkaline Phosphatase 400 H (38-126) U/L C-Reactive Protein (<10.0) mg/L Albumin 2.7 L (3.5-5.0) g/dL CT scan - abdomen: report reviewed CT scan - chest: report reviewed CT scan - pelvis: report reviewed Assessment and Plan Plan: Assessment and Recommendations: 1. New Hepatic Vein THrombosis - Continue heparin drip at this time until a tissue biopsy of suspicious areas concerning for malignancy can be obtained 2. New Liver Mass: - Heterogenous masslike area @ posterior Liver 8x4.6x9.3 - Concern for underlying malignancy, will need tissue biopy, will await surgical and GI consultation for approach as CT also Identified left colon area of concern, diverticulitis with localized perforation. Patient states this has been present for two years and was previously treated with antibiotics 3. Daily Alcohol and tobacco use Physician Attest: I have completed the full history and physical as well as developed the complete impression and plan of this patient and agree with above dictation by Licha Reid, Dictated as a scribe.
--- NOTE | 2018-08-19 22:27 | P.GSCN ---
History of Present Illness Consult date: 08/19/18 Reason for Consult: Abdominal pain History of present illness: 58-year-old male comes in the hospital yesterday evening with complaints of right upper quadrant abdominal pain. Patient states he had pneumonia in late June which lasted for a few weeks. He felt weak from the recent pneumonia episode. Starting last Thursday he started feeling bloated particularly after meals. Surgeon having discomfort on Thursday and Thursday in the right upper quadrant and right midabdomen. Pain radiated to the back at times. Symptoms seem to gradually increase and for that reason he came to the hospital for evaluation. Patient has had fairly normal bowel habits. No vomiting. Mild nausea. Early satiety present. He has felt cold sweats at times. He thinks he has lost 7 pounds in the last month or so. Darker stools over the last 1 week. Last colonoscopy 2 years ago or less. The patient was seen in the hospital for proximal sigmoid diverticulitis in 2016 and had a colonoscopy following that. Patient modified his diet quite significantly after that and is felt much healthier. Patient's white blood cell count 10.8. Hemodynamically stable. The patient's CAT scan quite impressive with evidence of mesenteric line thrombosis, diverticulitis with some extraluminal air adjacent to the proximal descending colon, and significant abnormality to the appearance of the liver possibly on the basis of hepatic vein thrombosis or underlying mass. Patient's inflammatory markers significantly elevated. GI, vascular, psychology has also been consulted. Patient feels relatively well. The pain that he was having in the right upper quadrant areas mostly gone at this time. Patient denies any pain in the left side of his abdomen. Patient is currently on a heparin drip. He is tolerating clear liquids. Review of Systems The patient denies any acute changes in his vision or hearing, no dysphagia or odynophagia, no chest pain or shortness of breath, no dysuria or hematuria, no headache, no runny nose, no rectal bleeding or melena Past Medical History Past Medical History: Hypertension, Pneumonia Additional Past Medical History / Comment(s): Recent pneumonia June, tx with antibiotics, past high cholesterol and htn but pt and had a lifestyle change 2 yrs aog and now pt has been taken off statin and his physician is weaning him off antihypertensive med, since lifestyle changes pt has lost 32#, past colon polyps (bening) and diverticular disease. History of Any Multi-Drug Resistant Organisms: None Reported Past Surgical History: Hernia Repair Additional Past Surgical History / Comment(s): Umbilical hernia repair, colonoscopy/polypectomy, rhinoplasty, bilateral cataracts removed with lens implants, vasectomy. Past Anesthesia/Blood Transfusion Reactions: No Reported Reaction Smoking Status: Current every day smoker - Past Family History Father Family Medical History: Coronary Artery Disease (CAD) Additional Family Medical History / Comment(s): Father had CABG. He lived to be 93 yrs old. Mother Family Medical History: Dementia Additional Family Medical History / Comment(s): Mother is 88yrs old. Medications and Allergies Home Medications Medication Instructions Recorded Confirmed Type amLODIPine BESYLATE/BENAZEPRIL 1 cap PO Q48H 08/18/18 08/18/18 History [Lotrel 10-20 MG] Allergies Allergy/AdvReac Type Severity Reaction Status Date / Time decongestant AdvReac chest Uncoded 10/08/15 07:51 tightness Surgical - Exam Vital Signs Temp Pulse Resp BP Pulse Ox 98.1 F 96 18 141/77 98 08/18/18 09:45 08/18/18 09:45 08/18/18 09:45 08/18/18 09:45 08/18/18 09:45 Physical exam: General: Well-developed, well-nourished HEENT: Normocephalic, sclerae nonicteric Abdomen: Mild distention, mild right-sided tenderness, no rebound or guarding Extremities: No edema Neuro: Alert and oriented Results - Labs 08/19/18 03:31 08/19/18 03:31 Abnormal Lab Results - Last 24 Hours (Table) 08/18/18 08/19/18 08/19/18 Range/Units 21:37 03:31 03:31 WBC 10.8 H (3.8-10.6) k/uL RBC 3.24 L (4.30-5.90) m/uL Hgb 10.7 L (13.0-17.5) gm/dL Hct 32.2 L (39.0-53.0) % Neutrophils # 8.7 H (1.3-7.7) k/uL ESR 119 H (0-15) mm/hr APTT (22.0-30.0) sec Sodium 136 L (137-145) mmol/L BUN 8 L (9-20) mg/dL Creatinine 0.59 L (0.66-1.25) mg/dL Calcium 8.2 L (8.4-10.2) mg/dL AST 71 H (17-59) U/L ALT 117 H (21-72) U/L Alkaline Phosphatase 400 H (38-126) U/L Albumin 2.7 L (3.5-5.0) g/dL 08/19/18 08/19/18 Range/Units 11:20 17:27 WBC (3.8-10.6) k/uL RBC (4.30-5.90) m/uL Hgb (13.0-17.5) gm/dL Hct (39.0-53.0) % Neutrophils # (1.3-7.7) k/uL ESR (0-15) mm/hr APTT 41.5 H 38.9 H (22.0-30.0) sec Sodium (137-145) mmol/L BUN (9-20) mg/dL Creatinine (0.66-1.25) mg/dL Calcium (8.4-10.2) mg/dL AST (17-59) U/L ALT (21-72) U/L Alkaline Phosphatase (38-126) U/L Albumin (3.5-5.0) g/dL Diabetes panel 08/19/18 Range/Units 03:31 Sodium 136 L (137-145) mmol/L Potassium 4.1 (3.5-5.1) mmol/L Chloride 104 (98-107) mmol/L Carbon Dioxide 24 (22-30) mmol/L BUN 8 L (9-20) mg/dL Creatinine 0.59 L (0.66-1.25) mg/dL Glucose 92 (74-99) mg/dL Calcium 8.2 L (8.4-10.2) mg/dL AST 71 H (17-59) U/L ALT 117 H (21-72) U/L Alkaline Phosphatase 400 H (38-126) U/L Total Protein 6.5 (6.3-8.2) g/dL Albumin 2.7 L (3.5-5.0) g/dL Calcium panel 08/19/18 Range/Units 03:31 Calcium 8.2 L (8.4-10.2) mg/dL Albumin 2.7 L (3.5-5.0) g/dL Pituitary panel 08/19/18 Range/Units 03:31 Sodium 136 L (137-145) mmol/L Potassium 4.1 (3.5-5.1) mmol/L Chloride 104 (98-107) mmol/L Carbon Dioxide 24 (22-30) mmol/L BUN 8 L (9-20) mg/dL Creatinine 0.59 L (0.66-1.25) mg/dL Glucose 92 (74-99) mg/dL Calcium 8.2 L (8.4-10.2) mg/dL Adrenal panel 08/19/18 Range/Units 03:31 Sodium 136 L (137-145) mmol/L Potassium 4.1 (3.5-5.1) mmol/L Chloride 104 (98-107) mmol/L Carbon Dioxide 24 (22-30) mmol/L BUN 8 L (9-20) mg/dL Creatinine 0.59 L (0.66-1.25) mg/dL Glucose 92 (74-99) mg/dL Calcium 8.2 L (8.4-10.2) mg/dL Total Bilirubin 0.7 (0.2-1.3) mg/dL AST 71 H (17-59) U/L ALT 117 H (21-72) U/L Alkaline Phosphatase 400 H (38-126) U/L Total Protein 6.5 (6.3-8.2) g/dL Albumin 2.7 L (3.5-5.0) g/dL Assessment and Plan Assessment: CAT scan findings as described previously. Patient appears far better than his CAT scan would suggest. Continue clear liquids and IV antibiotics. Consider infectious disease consultation. We will order MRI of the liver to better evaluate for underlying malignancy. Developing hepatic infection given the diverticulitis also to be considered. We'll follow closely with you.
--- NOTE | 2018-08-19 22:39 | P.CONS ---
History of Present Illness - Reason for Consult Consult date: 08/19/18 Diverticulitis, hepatic mass Requesting physician: Nannette Tompkins - Chief Complaint Abdominal pain - History of Present Illness 58-year-old male with a medical history significant for diverticulosis, prior episode of diverticulitis, COPD, tobacco abuse, alcohol use and prior episode of pneumonia who presented to the hospital with complaints of abdominal pain. The patient reported severe right upper quadrant abdominal pain which was worse with eating. He describes the pain as sharp in quality with radiation into his back. The patient had associated chills and drenching sweats. In addition he reports that he has lost approximately 40 pounds over the past year and a half. The patient also reports decrease in his bowel movements, however he attributes this to a decrease in his appetite. He denies any prior episodes of abdominal pain which were similar in quality. He denies any history of liver pathology. On presentation the patient was found to have a WBC count of 15.2 which trended down to 10.8, hemoglobin 10.7, platelet count 391, CRP 247, ESR 119, total bilirubin 0.7, alkaline phosphatase 400, AST 71, ALT 117. The patient had imaging performed with a computed tomography scan of the abdomen which showed findings concerning for diverticulitis with a 4 cm collection of tissue adjacent to the descending colon, and addition occlusion of the left and right portal veins were noted as well as a large mass in the posterior liver with differential including a phlegmon versus malignancy or other etiology. Review of Systems REVIEW OF SYSTEMS: CONSTITUTIONAL: Patient does report fevers and chills, as well as 50 pounds weight loss in the last year and half.. CARDIOVASCULAR: Denies any chest pain, palpitations high or low blood pressures RESPIRATORY: Denies any shortness of breath, hemoptysis or cough. GENITOURINARY: No dysuria or hematuria. MUSCULOSKELETAL: No weakness reported. SKIN: Denies any new rashes or lesions, jaundice or pallor. PSYCHIATRIC: Denies any depression or anxiety. NEUROLOGY: Denies headache, denies any new focal deficits. EARS/NOSE/THROAT: No recent hearing change, congestion, nasal discharge or sore throat. EYES: No pain in eyes, discharge or change in vision. GASTROINTESTINAL: As per HPI. Past Medical History Past Medical History: Hypertension, Pneumonia Additional Past Medical History / Comment(s): Recent pneumonia June, tx with antibiotics, past high cholesterol and htn but pt and had a lifestyle change 2 yrs aog and now pt has been taken off statin and his physician is weaning him off antihypertensive med, since lifestyle changes pt has lost 32#, past colon polyps (bening) and diverticular disease. History of Any Multi-Drug Resistant Organisms: None Reported Past Surgical History: Hernia Repair Additional Past Surgical History / Comment(s): Umbilical hernia repair, colonoscopy/polypectomy, rhinoplasty, bilateral cataracts removed with lens implants, vasectomy. Past Anesthesia/Blood Transfusion Reactions: No Reported Reaction Smoking Status: Current every day smoker - Past Family History Father Family Medical History: Coronary Artery Disease (CAD) Additional Family Medical History / Comment(s): Father had CABG. He lived to be 93 yrs old. Mother Family Medical History: Dementia Additional Family Medical History / Comment(s): Mother is 88yrs old. Medications and Allergies Home Medications Medication Instructions Recorded Confirmed Type amLODIPine BESYLATE/BENAZEPRIL 1 cap PO Q48H 08/18/18 08/18/18 History [Lotrel 10-20 MG] Allergies Allergy/AdvReac Type Severity Reaction Status Date / Time decongestant AdvReac chest Uncoded 10/08/15 07:51 tightness Physical Exam Vitals: Vital Signs Temp Pulse Pulse Resp BP Pulse Ox 08/19/18 20:00 97.6 F 86 16 97/56 96 08/19/18 12:00 97.9 F 87 16 100/63 98 08/19/18 08:00 98.0 F 90 18 114/67 94 L 08/19/18 04:00 97.5 F L 79 16 116/71 93 L 08/19/18 00:00 97.1 F L 94 16 121/72 95 Intake and Output 08/19/18 08/19/18 08/19/18 06:59 14:59 22:59 Intake Total 308.838 739.915 99.814 Output Total 300 1 1 Balance 8.838 738.915 98.814 Intake: IV 20 10 Invasive Line 2 20 10 Intake, IV Titration 288.838 149.915 99.814 Amount Heparin Sod,Pork in 0.45% 128.838 149.915 99.814 NaCl 25,000 unit In 0.45 % NaCl 1 250ml.bag @ 18 UNITS/KG/HR 12.24 mls/hr IV .[id number] [facility] Rx#: [id number] Sodium Chloride 0.9% 1, 160 000 ml @ 20 mls/hr IV . Q24H [facility] Rx#:[id number] Oral 580 Output: Urine 300 Stool 1 1 Other: Voiding Method Urinal Urinal Urinal # Voids 1 Weight 68.4 kg 68.4 kg On physical examination, patient appears comfortable in no apparent distress. HEAD: Normocephalic, atraumatic. EYES: No scleral icterus. No conjunctival injection. MOUTH: No lesions, tongue midline. NECK: Trachea midline, no gross abnormalities. CHEST: Clear to auscultation with no wheezing or rhonchi appreciated. HEART: Regular rate and rhythm. ABDOMEN: Soft, obese. Bowel sounds are positive. No organomegaly. No guarding or rigidity. EXTREMITIES: No pedal edema. SKIN: No rashes, no jaundice. NEUROLOGIC: Alert and oriented x3. No focal deficits. Results CBC & Chem 7: 08/19/18 03:31 08/19/18 03:31 Labs: Abnormal Lab Results - Last 24 Hours (Table) 08/18/18 08/18/18 08/19/18 Range/Units 21:37 21:37 03:31 WBC 10.8 H (3.8-10.6) k/uL RBC 3.24 L (4.30-5.90) m/uL Hgb 10.7 L (13.0-17.5) gm/dL Hct 32.2 L (39.0-53.0) % Neutrophils # 8.7 H (1.3-7.7) k/uL ESR 119 H (0-15) mm/hr APTT (22.0-30.0) sec Sodium (137-145) mmol/L BUN (9-20) mg/dL Creatinine (0.66-1.25) mg/dL Calcium (8.4-10.2) mg/dL AST (17-59) U/L ALT (21-72) U/L Alkaline Phosphatase (38-126) U/L C-Reactive Protein 247.0 H (<10.0) mg/L Albumin (3.5-5.0) g/dL 02/08/19/18 08/19/18 Range/Units 03:31 11:20 17:27 WBC (3.8-10.6) k/uL RBC (4.30-5.90) m/uL Hgb (13.0-17.5) gm/dL Hct (39.0-53.0) % Neutrophils # (1.3-7.7) k/uL ESR (0-15) mm/hr APTT 41.5 H 38.9 H (22.0-30.0) sec Sodium 136 L (137-145) mmol/L BUN 8 L (9-20) mg/dL Creatinine 0.59 L (0.66-1.25) mg/dL Calcium 8.2 L (8.4-10.2) mg/dL AST 71 H (17-59) U/L ALT 117 H (21-72) U/L Alkaline Phosphatase 400 H (38-126) U/L C-Reactive Protein (<10.0) mg/L Albumin 2.7 L (3.5-5.0) g/dL CT scan - abdomen: report reviewed (computed tomography scan of the abdomen which showed findings concerning for diverticulitis with a 4 cm collection of tissue adjacent to the descending colon, and addition occlusion of the left and right portal veins were noted as well as a large mass in the posterior liver with differential including a phlegmon versus malignancy or other etiology.) Assessment and Plan (1) Portal vein thrombosis Narrative/Plan: Patient with findings of occlusion of the left and right portal veins. Unknown etiology, may be secondary to underlying malignancy with concern for mass and liver as well as a area of tissue collection in the area of the descending colon. Current Visit: Yes Status: Acute Code(s): I81 - PORTAL VEIN THROMBOSIS SNOMED Code(s): 82546789 (2) Liver mass Narrative/Plan: Large mass in the posterior liver, unclear if secondary to infection and phlegmon or secondary to malignancy or other process. Current Visit: Yes Status: Acute Code(s): R16.0 - HEPATOMEGALY, NOT ELSEWHERE CLASSIFIED SNOMED Code(s): 457716595 (3) Diverticulosis Narrative/Plan: Patient with known history of diverticulosis and prior episodes of diverticulitis who had findings of a 4 cm collection of tissue in the descending colon with concern for possible diverticulitis. Current Visit: Yes Status: Acute Code(s): K57.90 - DVRTCLOS OF INTEST, PART UNSP, W/O PERF OR ABSCESS W/O BLEED SNOMED Code(s): 16649006 Plan: supportive care Okay for diet Appreciate recommendations from hematology/oncology and vascular surgery Continue anticoagulation Levofloxacin and Flagyl have been added given the concern of possible diverticulitis or liver phlegmon Patient would benefit from biopsy/drainage of liver mass or descending colon tissue collection, may be amenable to CT-guided biopsy by interventional radiology service We will recommendations from surgical service Thank you for allowing us to participate in the care of the patient we will continue to follow
[2018-08-20] MEDS: HYDROcodone/APAP 5-325MG 1 EACH TAB PO PRN ×4 (00:39→23:10)
[2018-08-20] MEDS: metroNIDAZOLE-NS PMX 500 MG in SALINE 1 100ML.BAG IVPB SCH ×4 (00:40→23:10)
[2018-08-20] MEDS: HEPARIN SOD,PORK IN 0.45% NACL 25,000 UNIT in 0.45% NACL 1 250ML.BAG IV SCH ×2 (02:11→20:00)
[2018-08-20] MEDS: PANTOPRAZOLE 40 MG/10 ML VIAL IV SCH (09:11)
[2018-08-20 10:47] LABS: Basophils % (A) 0 %; Eosinophils # (A) 0.1 k/uL (0-0.7); Eosinophils % (A) 1 %; HCT 30.5 % (39.0-53.0); HGB 9.8 gm/dL (13.0-17.5); Lymphocytes # (A) 1.3 k/uL (1.0-4.8); Lymphocytes % (A) 11 %; MCH 31.4 pg (25.0-35.0); MCHC 32.1 g/dL (31.0-37.0); MCV 97.9 fL (80.0-100.0); Mean Platelet Volume 6.3; Monocytes # (A) 0.5 k/uL (0-1.0); Monocytes % (A) 4 %; Neutrophils # (A) 9.5 k/uL (1.3-7.7); Neutrophils % (A) 83 %; Platelet Count 414 k/uL (150-450); RBC 3.11 m/uL (4.30-5.90); RDW 13.1 % (11.5-15.5); WBC 11.5 k/uL (3.8-10.6)
--- NOTE | 2018-08-20 10:51 | P.PN ---
Subjective Progress Note Date: 08/20/18 Principal diagnosis: Elevated liver enzymes liver mass portal vein thrombosis Feels well. Minimal abdominal discomfort. Afebrile. Receiving IV heparin antibiotics. MRI liver scheduled this morning. Liver biopsy discussed. White count 11.5. Hemoglobin 9.8. LFTs not obtained today. Objective - Vital Signs Vital signs: Vital Signs Temp 98.6 F 08/20/18 07:44 Pulse 98 08/20/18 07:44 Resp 18 08/20/18 07:44 BP 135/68 08/20/18 07:44 Pulse Ox 98 08/20/18 07:44 Intake & Output 08/19/18 08/20/18 08/20/18 18:59 06:59 18:59 Intake Total 839.729 160 125 Output Total 2 Balance 837.729 160 125 Weight 68.4 kg 68.4 kg Intake: IV 10 Invasive Line 2 10 Intake, IV Titration 249.729 160 Amount Heparin Sod,Pork in 0.45% 249.729 NaCl 25,000 unit In 0.45 % NaCl 1 250ml.bag @ 18 UNITS/KG/HR 12.24 mls/hr IV .[id number] [facility] Rx#: [id number] Sodium Chloride 0.9% 1, 160 000 ml @ 20 mls/hr IV . Q24H [facility] Rx#:[id number] Oral 580 125 Output: Stool 2 Other: Voiding Method Urinal Urinal Urinal # Voids 1 # Bowel Movements 1 - Exam General appearance: The patient is alert, oriented, in no acute distress. HET: Head is normocephalic and atraumatic. Pupils are equal and reactive. Oropharynx is clear without lesions. Neck: Supple without lymphadenopathy. Trachea midline. Heart: S1 S2. Regular rate and rhythm. Lungs: No crackles or wheezes are heard. Abdomen: Soft, mild tender RUQ, nondistended with bowel sounds. No peritoneal signs. No palpable organomegaly or masses. Extremities: Normal skin color and turgor. No cyanosis, rash, ulceration, clubbing, or edema. Radial and pedal pulses are 2/4 bilaterally. Neurological: No focal deficits. Strength and sensation are grossly intact. - Labs CBC & Chem 7: 08/19/18 03:31 08/19/18 03:31 Labs: Abnormal Lab Results - Last 24 Hours (Table) 08/19/18 08/19/18 08/20/18 Range/Units 11:20 17:27 00:30 APTT 41.5 H 38.9 H 43.2 H (22.0-30.0) sec Microbiology - Last 24 Hours (Table) 08/18/18 21:37 Blood Culture - Preliminary Blood No Growth after 24 hours Assessment and Plan (1) Liver mass Current Visit: Yes Status: Acute Code(s): R16.0 - HEPATOMEGALY, NOT ELSEWHERE CLASSIFIED SNOMED Code(s): 317524032 (2) Diverticulosis Current Visit: Yes Status: Acute Code(s): K57.90 - DVRTCLOS OF INTEST, PART UNSP, W/O PERF OR ABSCESS W/O BLEED SNOMED Code(s): 54194955 (3) Portal vein thrombosis Current Visit: Yes Status: Acute Code(s): I81 - PORTAL VEIN THROMBOSIS SNOMED Code(s): 52951264 Plan: 1. MRI abdomen. Possible liver biopsy per clinical course. IV antibiotics. Continue with IV heparin. We'll continue to follow. 2. Daily CBC CMP. Assessment and plan a care discussed with Dr. Almanzar
[2018-08-20 11:13] LABS: ALT 84 U/L (21-72); AST 27 U/L (17-59); Albumin 2.5 g/dL (3.5-5.0); Alkaline Phosphatase 347 U/L (38-126); Anion Gap 7 mmol/L; Blood Urea Nitrogen 5 mg/dL (9-20); Calcium 8.1 mg/dL (8.4-10.2); Carbon Dioxide 23 mmol/L (22-30); Chloride 103 mmol/L (98-107); Glucose 118 mg/dL (74-99); Potassium 3.6 mmol/L (3.5-5.1); Sodium 133 mmol/L (137-145); Total Bilirubin 0.6 mg/dL (0.2-1.3); Total Protein 6.3 g/dL (6.3-8.2)
[2018-08-20] MEDS: LEVOFLOXACIN 500MG-D5W PMX 500 MG in DEXTROSE/WATER 1 100ML.BAG IVPB SCH (12:13)
--- NOTE | 2018-08-20 13:33 | P.PN ---
Subjective Progress Note Date: 08/20/18 Principal diagnosis: Diverticulitis Patient overall feels slightly better even than yesterday. Pain minimal at this time. He does notice some discomfort on the left abdomen which he did not notice previously. He thinks it was because the pain on the right side was slightly more. White blood cell count 11.5. Liver MRI was performed this morning. Results are pending. Objective - Vital Signs Vital signs: Vital Signs Temp 98.6 F 08/20/18 07:44 Pulse 98 08/20/18 07:44 Resp 18 08/20/18 07:44 BP 135/68 08/20/18 07:44 Pulse Ox 98 08/20/18 07:44 Intake & Output 08/19/18 08/20/18 08/20/18 18:59 06:59 18:59 Intake Total 839.729 160 125 Output Total 2 Balance 837.729 160 125 Weight 68.4 kg 68.4 kg Intake: IV 10 Invasive Line 2 10 Intake, IV Titration 249.729 160 Amount Heparin Sod,Pork in 0.45% 249.729 NaCl 25,000 unit In 0.45 % NaCl 1 250ml.bag @ 18 UNITS/KG/HR 12.24 mls/hr IV .[id number] [facility] Rx#: [id number] Sodium Chloride 0.9% 1, 160 000 ml @ 20 mls/hr IV . Q24H [facility] Rx#:[id number] Oral 580 125 Output: Stool 2 Other: Voiding Method Urinal Urinal Urinal # Voids 1 # Bowel Movements 1 - Exam Abdomen: Soft, mild right upper quadrant and left mid abdominal tenderness, no rebound or guarding - Labs CBC & Chem 7: 08/20/18 10:33 08/20/18 10:33 Labs: Abnormal Lab Results - Last 24 Hours (Table) 08/19/18 08/20/18 08/20/18 Range/Units 17:27 00:30 10:33 WBC 11.5 H (3.8-10.6) k/uL RBC 3.11 L (4.30-5.90) m/uL Hgb 9.8 L (13.0-17.5) gm/dL Hct 30.5 L (39.0-53.0) % Neutrophils # 9.5 H (1.3-7.7) k/uL APTT 38.9 H 43.2 H (22.0-30.0) sec Sodium (137-145) mmol/L BUN (9-20) mg/dL Creatinine (0.66-1.25) mg/dL Glucose (74-99) mg/dL Calcium (8.4-10.2) mg/dL ALT (21-72) U/L Alkaline Phosphatase (38-126) U/L Albumin (3.5-5.0) g/dL 08/20/18 08/20/18 Range/Units 10:33 10:33 WBC (3.8-10.6) k/uL RBC (4.30-5.90) m/uL Hgb (13.0-17.5) gm/dL Hct (39.0-53.0) % Neutrophils # (1.3-7.7) k/uL APTT 64.4 H (22.0-30.0) sec Sodium 133 L (137-145) mmol/L BUN 5 L (9-20) mg/dL Creatinine 0.47 L (0.66-1.25) mg/dL Glucose 118 H (74-99) mg/dL Calcium 8.1 L (8.4-10.2) mg/dL ALT 84 H (21-72) U/L Alkaline Phosphatase 347 H (38-126) U/L Albumin 2.5 L (3.5-5.0) g/dL Microbiology - Last 24 Hours (Table) 08/18/18 21:37 Blood Culture - Preliminary Blood No Growth after 24 hours Assessment and Plan (1) Diverticulitis Narrative/Plan: Continue IV antibiotics. Await MRI report. Continue liquid diet for now. We' ll follow closely with you. Current Visit: Yes Status: Acute Code(s): K57.92 - DVTRCLI OF INTEST, PART UNSP, W/O PERF OR ABSCESS W/O BLEED SNOMED Code(s): 070571911
[2018-08-20] MEDS: SODIUM CHLORIDE 0.9% 1,000 ML IV SCH (17:09)
[2018-08-20 17:54] LABS: Alpha Fetoprotein, Tumor Mkr <2.5 ng/mL (0.0-7.9)
[2018-08-20 18:06] LABS: Cancer Antigen 19-9 20.5 U/mL (0.0-34.9)
[2018-08-20] MEDS: HEPARIN SODIUM,PORCINE 5,000 UNIT/ML 1 ML VIAL IV PRN (18:17)
--- NOTE | 2018-08-20 18:53 | P.PN ---
Subjective Progress Note Date: 08/20/18 Principal diagnosis: New Mass Posterior Liver and Left descending colon abnormality Patient seen and evaluated by Dr. Segal, author present during interaction. Patient and with many questions and all answered except results of MRI, which are still pending radiologist read. He is feeling better today, abdominal pain controlled and was able to sleep over night Objective - Vital Signs Vital signs: Vital Signs Temp 98.1 F 08/20/18 12:00 Pulse 99 08/20/18 12:00 Resp 16 08/20/18 12:00 BP 116/77 08/20/18 12:00 Pulse Ox 99 08/20/18 12:00 Intake & Output 08/19/18 08/20/18 08/20/18 18:59 06:59 18:59 Intake Total 839.729 160 375 Output Total 2 1 Balance 837.729 160 374 Weight 68.4 kg 68.4 kg Intake: IV 10 Invasive Line 2 10 Intake, IV Titration 249.729 160 250 Amount Heparin Sod,Pork in 0.45% 249.729 250 NaCl 25,000 unit In 0.45 % NaCl 1 250ml.bag @ 18 UNITS/KG/HR 12.24 mls/hr IV .[id number] [facility] Rx#: [id number] Sodium Chloride 0.9% 1, 160 000 ml @ 20 mls/hr IV . Q24H [facility] Rx#:[id number] Oral 580 125 Output: Stool 2 1 Other: Voiding Method Urinal Urinal Urinal # Voids 1 2 # Bowel Movements 1 - Exam Gen: NAD, ALert and happy Head NC, NT Eye: Non-icteric Neck Supple No lymphadenopathy cervical or axilla Lungs: Diminished bibasilar expiratory wheeze, No increased effort Heart: RRR, S1s2 Abdomen: appears distended, bloated, although soft, non tender Ext: No edema Neuro - non-focal - Labs CBC & Chem 7: 08/20/18 10:33 08/20/18 10:33 Labs: Abnormal Lab Results - Last 24 Hours (Table) 08/20/18 08/20/18 08/20/18 Range/Units 00:30 10:33 10:33 WBC 11.5 H (3.8-10.6) k/uL RBC 3.11 L (4.30-5.90) m/uL Hgb 9.8 L (13.0-17.5) gm/dL Hct 30.5 L (39.0-53.0) % Neutrophils # 9.5 H (1.3-7.7) k/uL APTT 43.2 H (22.0-30.0) sec Sodium 133 L (137-145) mmol/L BUN 5 L (9-20) mg/dL Creatinine 0.47 L (0.66-1.25) mg/dL Glucose 118 H (74-99) mg/dL Calcium 8.1 L (8.4-10.2) mg/dL ALT 84 H (21-72) U/L Alkaline Phosphatase 347 H (38-126) U/L Albumin 2.5 L (3.5-5.0) g/dL 08/20/18 08/20/18 Range/Units 10:33 16:49 WBC (3.8-10.6) k/uL RBC (4.30-5.90) m/uL Hgb (13.0-17.5) gm/dL Hct (39.0-53.0) % Neutrophils # (1.3-7.7) k/uL APTT 64.4 H 38.7 H (22.0-30.0) sec Sodium (137-145) mmol/L BUN (9-20) mg/dL Creatinine (0.66-1.25) mg/dL Glucose (74-99) mg/dL Calcium (8.4-10.2) mg/dL ALT (21-72) U/L Alkaline Phosphatase (38-126) U/L Albumin (3.5-5.0) g/dL Microbiology - Last 24 Hours (Table) 08/18/18 21:37 Blood Culture - Preliminary Blood No Growth after 24 hours Assessment and Plan Plan: Assessment and Recommendations: 1. New Hepatic Vein Thrombosis - Continue heparin drip at this time until a tissue biopsy of suspicious areas concerning for malignancy can be obtained 2. New Liver Mass: - Heterogenous masslike area @ posterior Liver 8x4.6x9.3 - Concern for underlying malignancy, will need tissue biopsy, will await surgical and GI consultation for approach as CT also Identified left colon area of concern, diverticulitis with localized perforation. Patient states this has been present for two years and was previously treated with antibiotics 3. Daily Alcohol and tobacco use Plan: - Await MRI for Clarification if this is a hepatic vein thrombus or portal vein thrombus. If this is an actual liver mass or liver damage. If this is liver mass and that is reflecting a a portal vein thrombus then anti- coagulation is not necessarily indicated. If this does not appear to be a mass or malignancy on liver then patient will require colonoscopy for further evaluation of the abnormality of the descending colon. - This was all explained and discussed with patient and . - Greater than 30 minutes spent Physician Attest: I have completed the full history and physical as well as developed the complete impression and plan of this patient and agree with above dictation by Licha Reid, Dictated as a scribe.
--- NOTE | 2018-08-20 19:49 | PN ---
PROGRESS NOTE DATE OF SERVICE: 08/20/2018 This 58-year-old gentleman who was admitted with abdominal pain had hepatic vein thrombosis. He also had a liver lesion. Patient also had possibly left-sided acute diverticulitis. The patient is being closely monitored. He has been started on empiric antibiotics. Patient is complaining of diffuse abdominal pain. Patient is being followed multiple consultants, including Gastroenterology and Surgery as well as Infectious Disease. Interventional Radiology is also considering possible hepatic aspiration per ID. Cholangiocarcinoma is being considered as a possibility with some intrahepatic portal obstruction also. Past medical history reviewed. REVIEW OF SYSTEMS: CARDIOVASCULAR SYSTEM: No angina, palpitations. RESPIRATORY SYSTEM: No cough. GI: As mentioned earlier. : No dysuria or retention. NERVOUS SYSTEM: No numbness, weakness. CURRENT MEDICATIONS: Reviewed. They include: 1. Tylenol 650 q.6 p.r.n. 2. [place] 5 mg. 3. Xanax 0.25 t.i.d. 4. [place] 10 mg q.8. 5. Unasyn 3 grams IV q.6. 6. Heparin subcutaneously b.i.d. 7. Dilaudid 0.5 q.3 p.r.n. 8. Zestril 20 mg q.48 hours. 9. Flagyl 500 mg IV q.8. 10.Narcan. 11.Zofran. 12.Protonix. 13.Restoril. PHYSICAL EXAMINATION: Patient is alert, oriented x3. Pulse 99, blood pressure 116/77, respirations 16, temperature 98, pulse ox 99% on room air. HEENT: Conjunctivae normal. Oral mucosa moist. NECK: No jugular venous distention. No carotid bruit. No lymph node enlargement. CARDIOVASCULAR SYSTEM: S1, S2 muffled. RESPIRATORY SYSTEM: Breath sounds diminished at the bases. A few scattered rhonchi. ABDOMEN: Soft. Mild diffuse discomfort. No mass palpable. No guarding. No rigidity. LEGS: No edema. No swelling. NERVOUS SYSTEM: No focal deficit. LABS: WBC 11.2, hemoglobin 9.8, sodium 133, ALT is 84, alkaline phosphatase 347, total bilirubin 0.6. ASSESSMENT: 1. Acute abdominal pain with possible acute diverticulitis, possibly perforation with abscess of the descending colon. 2. Possible hepatic abscess; rule out malignancy, cholangiocarcinoma. 3. Hepatic venous thrombosis. 4. History of recent pneumonia. 5. History of recent weight loss. 6. Rule out extrahepatic portal obstruction. 7. Hypokalemia. 8. Increased ALT, alkaline phosphatase. 9. Mild coagulopathy. 10.Increased white count. 11.Anemia of undetermined origin. 12.Hypertension. 13.History of hypercholesterolemia. 14.History of hernia repair. 15.History of nicotine dependence. 16.History of tetrahydrocannabinol. 17.FULL CODE. RECOMMENDATIONS AND DISCUSSION: I recommend to continue current medications, continue with symptomatic treatment. Continue with the broad-spectrum IV antibiotics. Closely follow with multiple consultants. Discussed with Gastroenterology as well as Infectious Disease. We will continue to monitor. Interventional Radiology guided liver aspiration versus colonoscopy. Prognosis once again is extremely guarded because of multiple complex medical issues. See orders for further details. Further recommendations to follow. MMODL / IJN: [id number] /
[2018-08-20] MEDS: AMPICILLIN-SULBACTAM 3 GM in SODIUM CHLORIDE 0.9% 100 ML IVPB SCH (20:39)
--- NOTE | 2018-08-20 21:06 | MR ---
MR scan of the abdomen. History liver mass. Comparison none. TECHNIQUE: Multiplanar multi echo imaging of the abdomen was performed without and with IV contrast. The contras t was gadolinium 7 mm. FINDINGS: There is a large mass in the posterior right lobe of the liver that measures 9.8 x 5.5 cm. This mass has increased signal on T2 and is somewhat lobulated . The common bile duct is not dilated. There brad ears to be dilation of the left and right hepatic ducts.. There is a 2 cm cyst in the anterior left l obe of the liver. There is small amount of intraperitoneal fluid. I see no definite pleural effusion. Gallbladder appea rs normal. Spleen appears intact. There is no evidence of a pancreatic mass. There is slight thickeni ng of the left anterior pararenal space. There is no adrenal mass. There is satisfactory contrast opa cification of the kidneys. There is no hydronephrosis. I see no retroperitoneal adenopathy. There is no sign of mesenteric edema. The mass shows multicentric curvilinear areas of enhancement there is ce ntral fluid signal and could be areas of necrosis. There is inhomogeneous enhancement of the remainde r of the liver. There is normal contrast opacification of the portal vein. IMPRESSION: Large complex mass in the posterior right lobe of the liver has features suggestive of malignancy. Th ere is probably some central necrosis. The left and right hepatic ducts appear dilated that could rel ate to extrinsic compression by tumor of the common hepatic duct. There is abnormal delayed contrast enhancement of the central liver probably due to vascular involvement by tumor.
--- NOTE | 2018-08-20 22:16 | CONS ---
CONSULTATION DATE OF SERVICE: 08/20/2018 REASON FOR CONSULTATION: Liver abscess. HISTORY OF PRESENT ILLNESS: The patient is a 58-year-old male presenting to the ER at [facility] on 08/18/2018 with the chief complaint of abdominal pain. The patient's pain had been going on for a week or two before he presented to hospital. The patient's pain has been mostly in the upper abdominal area. He initially was describing it to be more of a gaseous distention that he has to burp. The patient's abdominal pain, which was initially about 4/10, continued to get worse over the next few days to weeks and became almost 10/10 by the time he presented to hospital. The patient did have an episode of nausea and vomiting but denies having any diarrhea or any constipation. The patient did have some rigors and chills as well. The pain subsequently localized mostly to the right upper quadrant area. With these symptoms, the patient was evaluated by the ER physician on arrival in the ER. The patient has been afebrile. The patient's white count was mildly elevated at 10.8; repeat is 11.5 today. He also has elevated liver enzymes. The patient did have a CT of abdomen, pelvis and chest completed which shows abnormal appearance of the descending left colon with an approximately 4 cm collection of adjacent extraluminal heterogeneous soft tissue and foci of gas with areas of diverticulitis with localized contained perforation with concern for possible abscess versus tumor and hepatic vein thrombosis. The patient has been evaluated by multiple consultants and is currently being treated with Levaquin and Flagyl for this perforated diverticulitis. Infectious Disease was consulted for further recommendations and evaluation. REVIEW OF SYSTEMS: CONSTITUTIONAL: Positive for weakness along with some chills. EYES: No complaint. ENT: No complaint. RESPIRATORY: No complaint. CARDIOVASCULAR: No complaint. GENITOURINARY: No complaint. GASTROINTESTINAL: As per HPI. MUSCULOSKELETAL: No complaint. INTEGUMENTARY: No complaint. PSYCHOLOGICAL: No complaint. ENDOCRINE: No complaint. NEUROLOGICAL: No complaint. PAST MEDICAL HISTORY: Hypertension and pneumonia. PAST SURGERY HISTORY: 1. Umbilical hernia repair. 2. Colonoscopy. 3. Polypectomy. 4. Rhinoplasty. 5. Bilateral cataract surgery. 6. Vasectomy. SOCIAL HISTORY: Patient is currently an everyday smoker. Denies drinking or drug use. FAMILY HISTORY: Father with history of coronary artery disease. Mother with history of dementia. ALLERGIES: DECONGESTANT. CURRENT MEDICATIONS: 1. Tylenol. 2. Anthony. 3. Xanax. 4. Norvasc. 5. Heparin. 6. Dilaudid. 7. Zestril. 8. Levaquin. 9. Flagyl. 10.Narcan. 11.Zofran. 12.Protonix. 13.Restoril. PHYSICAL EXAMINATION: Blood pressure is 116/77 with a pulse of 99, temperature 98.1. He is 99% on room air. General description is a middle-aged male lying in bed in no distress. No tachypnea or accessory muscle of respiration use. HEENT examination shows slight pallor. No scleral icterus. Oral mucosa membrane is dry. No pharyngeal erythema or thrush. NECK: Trachea is central. No thyromegaly. LUNGS: Unlabored breathing. Clear to auscultation anteriorly. No wheeze or crackle. HEART: S1, S2. Regular rate and rhythm. ABDOMEN: Soft. Mildly tender in the right upper quadrant and left lower quadrant areas. No guarding. No rigidity. No organomegaly. EXTREMITIES: No edema of feet. SKIN EXAMINATION: No rash or mass palpable. Neurologically the patient is awake, alert, oriented x3. Mood and affect normal. LABS: Hemoglobin 9.8, white count 11.5 with a BUN of 5, creatinine 0.47. Liver enzymes mildly elevated. CT and MRI were reviewed with the radiologist. DIAGNOSTIC IMPRESSION AND PLAN: Patient with abnormality of the liver, likely representing a liver abscess and more likely related to the diverticulitis with contained perforation to be the likely etiology. Will need to cover for the enteric gram-negatives, both aerobes and anaerobes. However, at the same time the patient was noted to have abnormal significant distention and dilatation of the common bile duct with concern for possible cholangiocarcinoma not entirely excluded, as per review of these images by the radiologist, Dr. Montiel. PLAN: 1. Discontinue Levaquin. 2. Will start the patient on Unasyn 3 grams q.6 hours to cover for the possible liver abscess, more likely of a diverticular origin. 3. Will obtain a CT-guided drainage of this collection with the fluid sent for aerobic and anaerobic culture in addition to cytology and possible biopsy to rule out malignancy. 4. The patient will benefit from ERCP for direct evaluation of the CBD to make sure there is no evidence of any cholangiocarcinoma. 5. Will follow up on clinical condition and cultures to further adjust medication if needed. Thank you for this consultation. Will follow this patient along with you. The patient and his had multiple questions. Those were answered in layman's terms. MMODL / IJN: [id number] /
[2018-08-21] MEDS: AMPICILLIN-SULBACTAM 3 GM in SODIUM CHLORIDE 0.9% 100 ML IVPB SCH ×4 (03:10→20:20)
[2018-08-21 06:37] LABS: Basophils % (A) 0 %; Eosinophils # (A) 0.1 k/uL (0-0.7); Eosinophils % (A) 1 %; HCT 32.4 % (39.0-53.0); HGB 10.3 gm/dL (13.0-17.5); Lymphocytes # (A) 1.5 k/uL (1.0-4.8); Lymphocytes % (A) 14 %; MCH 31.8 pg (25.0-35.0); MCHC 31.9 g/dL (31.0-37.0); MCV 99.7 fL (80.0-100.0); Mean Platelet Volume 6.9; Monocytes # (A) 0.4 k/uL (0-1.0); Monocytes % (A) 4 %; Neutrophils # (A) 8.5 k/uL (1.3-7.7); Neutrophils % (A) 80 %; Platelet Count 415 k/uL (150-450); RBC 3.25 m/uL (4.30-5.90); RDW 13.6 % (11.5-15.5); WBC 10.5 k/uL (3.8-10.6)
[2018-08-21 06:57] LABS: ALT 76 U/L (21-72); AST 16 U/L (17-59); Albumin 2.6 g/dL (3.5-5.0); Alkaline Phosphatase 329 U/L (38-126); Anion Gap 9 mmol/L; Blood Urea Nitrogen 3 mg/dL (9-20); Calcium 8.2 mg/dL (8.4-10.2); Carbon Dioxide 24 mmol/L (22-30); Chloride 104 mmol/L (98-107); Glucose 107 mg/dL (74-99); Potassium 3.7 mmol/L (3.5-5.1); Sodium 137 mmol/L (137-145); Total Bilirubin 0.6 mg/dL (0.2-1.3); Total Protein 6.4 g/dL (6.3-8.2)
[2018-08-21] MEDS: HYDROcodone/APAP 5-325MG 1 EACH TAB PO PRN ×2 (07:01→15:18)
[2018-08-21] MEDS: amLODIPine 10 MG TAB PO SCH (09:31)
[2018-08-21] MEDS: PANTOPRAZOLE 40 MG/10 ML VIAL IV SCH (09:32)
[2018-08-21] MEDS: LISINOPRIL 20 MG TAB PO SCH (09:32)
--- NOTE | 2018-08-21 11:01 | P.PN ---
Subjective Progress Note Date: 08/21/18 Principal diagnosis: Diverticulitis Patient feels well today. Denies any pain currently. He is afebrile. Yesterday's MRI does suggest the more likely possibility of malignancy involving the liver. Apparently liver biopsy scheduled for Thursday. Objective - Vital Signs Vital signs: Vital Signs Temp 98.2 F 08/21/18 09:41 Pulse 90 08/21/18 09:41 Resp 16 08/21/18 09:41 BP 118/71 08/21/18 09:41 Pulse Ox 96 08/21/18 09:41 Intake & Output 08/20/18 08/21/18 08/21/18 18:59 06:59 18:59 Intake Total 615 305.969 480 Output Total 1 Balance 614 305.969 480 Weight 68.2 kg Intake: Intake, IV Titration 250 104.969 Amount Heparin Sod,Pork in 0.45% 250 104.969 NaCl 25,000 unit In 0.45 % NaCl 1 250ml.bag @ 18 UNITS/KG/HR 12.24 mls/hr IV .[id number] [facility] Rx#: [id number] Oral 365 201 480 Output: Stool 1 Other: Voiding Method Urinal Toilet # Voids 2 # Bowel Movements 1 - Exam Abdomen: Soft, nondistended, minimal tenderness - Labs CBC & Chem 7: 08/21/18 06:23 08/21/18 06:23 Labs: Abnormal Lab Results - Last 24 Hours (Table) 08/20/18 08/20/18 08/20/18 Range/Units 10:33 10:33 16:49 RBC (4.30-5.90) m/uL Hgb (13.0-17.5) gm/dL Hct (39.0-53.0) % Neutrophils # (1.3-7.7) k/uL APTT 64.4 H 38.7 H (22.0-30.0) sec Sodium 133 L (137-145) mmol/L BUN 5 L (9-20) mg/dL Creatinine 0.47 L (0.66-1.25) mg/dL Glucose 118 H (74-99) mg/dL Calcium 8.1 L (8.4-10.2) mg/dL AST (17-59) U/L ALT 84 H (21-72) U/L Alkaline Phosphatase 347 H (38-126) U/L Albumin 2.5 L (3.5-5.0) g/dL 08/20/18 08/21/18 08/21/18 Range/Units 22:30 06:23 06:23 RBC 3.25 L (4.30-5.90) m/uL Hgb 10.3 L (13.0-17.5) gm/dL Hct 32.4 L (39.0-53.0) % Neutrophils # 8.5 H (1.3-7.7) k/uL APTT 118.5 H* (22.0-30.0) sec Sodium (137-145) mmol/L BUN 3 L (9-20) mg/dL Creatinine 0.47 L (0.66-1.25) mg/dL Glucose 107 H (74-99) mg/dL Calcium 8.2 L (8.4-10.2) mg/dL AST 16 L (17-59) U/L ALT 76 H (21-72) U/L Alkaline Phosphatase 329 H (38-126) U/L Albumin 2.6 L (3.5-5.0) g/dL 08/21/18 Range/Units 06:23 RBC (4.30-5.90) m/uL Hgb (13.0-17.5) gm/dL Hct (39.0-53.0) % Neutrophils # (1.3-7.7) k/uL APTT 59.0 H (22.0-30.0) sec Sodium (137-145) mmol/L BUN (9-20) mg/dL Creatinine (0.66-1.25) mg/dL Glucose (74-99) mg/dL Calcium (8.4-10.2) mg/dL AST (17-59) U/L ALT (21-72) U/L Alkaline Phosphatase (38-126) U/L Albumin (3.5-5.0) g/dL Microbiology - Last 24 Hours (Table) 08/18/18 21:37 Blood Culture - Preliminary Blood No Growth after 48 hours Assessment and Plan (1) Diverticulitis Narrative/Plan: Will increase diet to full liquids. Will discuss with interventional radiology to be sure they're comfortable with biopsying this area. If not it would recommend tertiary care transfer. Current Visit: Yes Status: Acute Code(s): K57.92 - DVTRCLI OF INTEST, PART UNSP, W/O PERF OR ABSCESS W/O BLEED SNOMED Code(s): 549132194
[2018-08-21] MEDS: metroNIDAZOLE-NS PMX 500 MG in SALINE 1 100ML.BAG IVPB SCH ×2 (12:09→17:23)
[2018-08-21] MEDS: HEPARIN SOD,PORK IN 0.45% NACL 25,000 UNIT in 0.45% NACL 1 250ML.BAG IV SCH (12:43)
--- NOTE | 2018-08-21 15:43 | P.PN ---
Subjective Progress Note Date: 08/21/18 Principal diagnosis: Hepatic vein thrombosis, liver mass Patient reporting less abdominal pain. Tolerated liquid diet and is scheduled to start full liquid diet. Passing flatus and bowel movements with no blood seen. Objective - Vital Signs Vital signs: Vital Signs Temp 98.2 F 08/21/18 09:41 Pulse 90 08/21/18 09:41 Resp 16 08/21/18 09:41 BP 118/71 08/21/18 09:41 Pulse Ox 96 08/21/18 09:41 Intake & Output 08/20/18 08/21/18 08/21/18 18:59 06:59 18:59 Intake Total 615 451.000 840 Output Total 1 Balance 614 451.000 840 Weight 68.2 kg Intake: Intake, IV Titration 250 250.000 Amount Heparin Sod,Pork in 0.45% 250 250.000 NaCl 25,000 unit In 0.45 % NaCl 1 250ml.bag @ 18 UNITS/KG/HR 12.24 mls/hr IV .[id number] [facility] Rx#: [id number] Oral 365 201 840 Output: Stool 1 Other: Voiding Method Urinal Toilet # Voids 2 # Bowel Movements 1 - Exam On physical examination, patient appears comfortable in no apparent distress. HEAD: Normocephalic, atraumatic. EYES: No scleral icterus. No conjunctival injection. MOUTH: No lesions, tongue midline. NECK: Trachea midline, no gross abnormalities. CHEST: Clear to auscultation with no wheezing or rhonchi appreciated. HEART: Regular rate and rhythm. ABDOMEN: Soft, obese. Bowel sounds are positive. No organomegaly. No guarding or rigidity. EXTREMITIES: No pedal edema. SKIN: No rashes, no jaundice. NEUROLOGIC: Alert and oriented x3. No focal deficits. - Labs CBC & Chem 7: 08/21/18 06:23 08/21/18 06:23 Labs: Abnormal Lab Results - Last 24 Hours (Table) 08/20/18 08/20/18 08/21/18 Range/Units 16:49 22:30 06:23 RBC 3.25 L (4.30-5.90) m/uL Hgb 10.3 L (13.0-17.5) gm/dL Hct 32.4 L (39.0-53.0) % Neutrophils # 8.5 H (1.3-7.7) k/uL APTT 38.7 H 118.5 H* (22.0-30.0) sec BUN (9-20) mg/dL Creatinine (0.66-1.25) mg/dL Glucose (74-99) mg/dL Calcium (8.4-10.2) mg/dL AST (17-59) U/L ALT (21-72) U/L Alkaline Phosphatase (38-126) U/L Albumin (3.5-5.0) g/dL 08/21/18 08/21/18 Range/Units 06:23 06:23 RBC (4.30-5.90) m/uL Hgb (13.0-17.5) gm/dL Hct (39.0-53.0) % Neutrophils # (1.3-7.7) k/uL APTT 59.0 H (22.0-30.0) sec BUN 3 L (9-20) mg/dL Creatinine 0.47 L (0.66-1.25) mg/dL Glucose 107 H (74-99) mg/dL Calcium 8.2 L (8.4-10.2) mg/dL AST 16 L (17-59) U/L ALT 76 H (21-72) U/L Alkaline Phosphatase 329 H (38-126) U/L Albumin 2.6 L (3.5-5.0) g/dL Microbiology - Last 24 Hours (Table) 08/18/18 21:37 Blood Culture - Preliminary Blood No Growth after 48 hours Assessment and Plan (1) Portal vein thrombosis Narrative/Plan: Patient with findings of occlusion of the left and right portal veins. Unknown etiology, may be secondary to underlying malignancy with concern for mass and liver as well as a area of tissue collection in the area of the descending colon. Current Visit: Yes Status: Acute Code(s): I81 - PORTAL VEIN THROMBOSIS SNOMED Code(s): 50702071 (2) Liver mass Narrative/Plan: Large mass in the posterior liver, unclear if secondary to infection and phlegmon or secondary to malignancy or other process with MRI performed yesterday was more consistent with underlying liver mass. Current Visit: Yes Status: Acute Code(s): R16.0 - HEPATOMEGALY, NOT ELSEWHERE CLASSIFIED SNOMED Code(s): 296623410 (3) Diverticulosis Narrative/Plan: Patient with known history of diverticulosis and prior episodes of diverticulitis who had findings of a 4 cm collection of tissue in the descending colon with concern for possible diverticulitis. Current Visit: Yes Status: Acute Code(s): K57.90 - DVRTCLOS OF INTEST, PART UNSP, W/O PERF OR ABSCESS W/O BLEED SNOMED Code(s): 64445644 (4) Elevated liver enzymes Narrative/Plan: Mild elevation of AST and ALT, trending down, likely related to liver mass seen on MRI. Current Visit: Yes Status: Acute Code(s): R74.8 - ABNORMAL LEVELS OF OTHER SERUM ENZYMES SNOMED Code(s): 382944480 Plan: supportive care Okay for diet, patient may advance to full liquid today Appreciate recommendations from hematology/oncology, surgery, infectious disease and vascular surgery Continue anticoagulation Continue Unasyn and Flagyl Tentative plan for liver biopsy on Thursday Thank you for allowing us to participate in the care of the patient we will continue to follow
[2018-08-21] MEDS: SODIUM CHLORIDE 0.9% 1,000 ML IV SCH (17:22)
--- NOTE | 2018-08-21 18:41 | PN ---
PROGRESS NOTE DATE OF SERVICE: 08/21/2018 This 58-year-old gentleman admitted with acute abdominal pain also had diverticulitis and possible diverticular abscess perforation and also hepatic mass also. The patient had liver MRI yesterday and MRI is reported as showing a large complex mass in the posterior right lower lobe suggestive of malignancy. The possibility of cholangiocarcinoma was also considered. Central necrosis also noted. Some compression of the tumor was also noted. Vascular involvement of the tumor was also suspected. PAST MEDICAL HISTORY: Reviewed. REVIEW OF SYSTEMS: CARDIOVASCULAR: No angina. RESPIRATORY: As mentioned earlier. GI: As mentioned earlier. : No dysuria. NERVOUS SYSTEM: No numbness. CURRENT MEDICATIONS: Reviewed and include: 1. Tylenol 650 q.6. 2. [place] 5 mg q.6h p.r.n. 3. Xanax. 4. Norvasc. 5. Unasyn q.6h. 6. Heparin subcu. 7. Dilaudid. 8. Zestril. 9. Flagyl. 10.Narcan. 11.Zofran. 12.Protonix. 13.Restoril. PHYSICAL EXAM: Patient is alert, oriented x3. Pulse 91, blood pressure 111/69, respirations 16, temperature 98.2, pulse ox 94% on room air. HEENT: Conjunctivae normal. NECK: No jugular venous distention. CARDIOVASCULAR: S1, S2 muffled. RESPIRATORY: Breath sounds diminished in the bases. No rhonchi and crackles. ABDOMEN: Soft, minimal diffuse distention, mild diffuse discomfort. No mass palpable. LEGS: No edema. NERVOUS SYSTEM: No focal deficits. LABS: Labs are at this time shows WBC 7, hemoglobin 10.3, sodium 137, potassium 3.7. ASSESSMENT: 1. Acute abdominal pain with possible acute diverticulitis, possible perforation with abscess and descending colon. 2. Hepatic mass, possible malignancy with cholangiocarcinoma with central necrosis, rule out abscess. 3. Hepatic venous thrombosis. 4. History of recent pneumonia. 5. History of recent weight loss. 6. Possible extrahepatic portal obstruction. 7. Hypokalemia. 8. Increased ALT, alkaline phosphatase. 9. Mild coagulopathy. 10.Increased WBC. 11.Anemia of undetermined origin. 12.Hypertension. 13.History of hypercholesteremia. 14.History of hernia repair. 15.History of nicotine dependence. 16.History of THC. 17.FULL CODE. RECOMMENDATIONS AND DISCUSSION: I recommend to continue current medications, continue with monitoring and symptomatic treatment. Otherwise at this time I will recommend repeat labs. The enzymes are stable at this time. Otherwise, closely follow with multiple consultants and symptomatic treatment. Continue the antibiotics and continue the heparin and possible liver biopsy which has been arranged for Thursday. Further recommendations to follow. MMODL / IJN: [id number] /
[2018-08-22] MEDS: metroNIDAZOLE-NS PMX 500 MG in SALINE 1 100ML.BAG IVPB SCH ×4 (00:55→23:58)
[2018-08-22] MEDS: AMPICILLIN-SULBACTAM 3 GM in SODIUM CHLORIDE 0.9% 100 ML IVPB SCH ×4 (03:53→20:56)
[2018-08-22] MEDS: HYDROcodone/APAP 5-325MG 1 EACH TAB PO PRN ×2 (03:58→20:50)
--- NOTE | 2018-08-22 05:17 | PN ---
PROGRESS NOTE DATE OF SERVICE: 08/21/2018. REASON FOR FOLLOWUP: Liver abscess. INTERVAL HISTORY: The patient is currently afebrile. The patient is breathing comfortably. The patient's pain in the right upper quadrant area has slightly decreased in intensity. Denies any nausea, vomiting. No diarrhea. No chest pain, shortness of breath or cough. PHYSICAL EXAMINATION: Blood pressure 109/59 with a pulse of 84, temperature 98.3. He is 92% on room air. General description is a middle-aged male lying in bed in no distress. Respiratory system: Unlabored breathing. Clear to auscultation anteriorly. Heart S1, S2. Regular rate and rhythm. Abdomen soft, no tenderness. EXTREMITIES: No edema of the feet. LABS: Hemoglobin 10.8, white count 10.5. BUN of 3, creatinine 0.478. DIAGNOSTIC IMPRESSION AND PLAN: Patient with abnormality of the liver with a question of tumor versus an abscess. We will favor abscess as the patient does have with localized perforation currently covered with Unasyn. He is waiting for CT-guided drainage of this area in addition with biopsy. Continue with the at this point. Questions and concerns were answered. MMODL / IJN: [id number] /
[2018-08-22 06:30] LABS: Basophils % (A) 0 %; Eosinophils # (A) 0.1 k/uL (0-0.7); Eosinophils % (A) 1 %; HCT 29.7 % (39.0-53.0); HGB 9.7 gm/dL (13.0-17.5); Lymphocytes # (A) 1.5 k/uL (1.0-4.8); Lymphocytes % (A) 16 %; MCH 31.6 pg (25.0-35.0); MCHC 32.6 g/dL (31.0-37.0); MCV 97.1 fL (80.0-100.0); Mean Platelet Volume 6.3; Monocytes # (A) 0.4 k/uL (0-1.0); Monocytes % (A) 4 %; Neutrophils # (A) 7.2 k/uL (1.3-7.7); Neutrophils % (A) 78 %; Platelet Count 465 k/uL (150-450); RBC 3.06 m/uL (4.30-5.90); RDW 13.3 % (11.5-15.5); WBC 9.2 k/uL (3.8-10.6)
[2018-08-22 07:23] LABS: ALT 56 U/L (21-72); AST 15 U/L (17-59); Albumin 2.4 g/dL (3.5-5.0); Alkaline Phosphatase 287 U/L (38-126); Anion Gap 8 mmol/L; Blood Urea Nitrogen 2 mg/dL (9-20); Calcium 8.1 mg/dL (8.4-10.2); Carbon Dioxide 24 mmol/L (22-30); Chloride 105 mmol/L (98-107); Glucose 108 mg/dL (74-99); Potassium 3.2 mmol/L (3.5-5.1); Sodium 137 mmol/L (137-145); Total Bilirubin 0.6 mg/dL (0.2-1.3); Total Protein 5.9 g/dL (6.3-8.2)
[2018-08-22] MEDS: PANTOPRAZOLE 40 MG/10 ML VIAL IV SCH (10:22)
[2018-08-22] MEDS: HEPARIN SOD,PORK IN 0.45% NACL 25,000 UNIT in 0.45% NACL 1 250ML.BAG IV SCH ×2 (10:36→20:49)
[2018-08-22] MEDS ORDERED: Potassium Replacement Protocol 1 EACH MISC MISCELLANE PRN (11:06)
[2018-08-22] MEDS ORDERED: Magnesium Replacement Protocol 1 EACH MISC MISCELLANE PRN (11:09)
--- NOTE | 2018-08-22 12:15 | P.PN ---
Subjective Progress Note Date: 08/22/18 Principal diagnosis: Diverticulitis Patient feels well today. No significant pain at this time. White blood cell count 9.2. Patient afebrile. His hungry. Objective - Vital Signs Vital signs: Vital Signs Temp 98.1 F 08/22/18 08:45 Pulse 89 08/22/18 08:45 Resp 16 08/22/18 08:45 BP 111/71 08/22/18 08:45 Pulse Ox 95 08/22/18 08:45 Intake & Output 08/21/18 08/22/18 08/22/18 18:59 06:59 18:59 Intake Total 840 250 360 Output Total 904 Balance 840 -654 360 Weight 68 kg Intake: Intake, IV Titration 250 Amount Heparin Sod,Pork in 0.45% 250 NaCl 25,000 unit In 0.45 % NaCl 1 250ml.bag @ 18 UNITS/KG/HR 12.24 mls/hr IV .[id number] [facility] Rx#: [id number] Oral 840 360 Output: Urine 900 Stool 4 Other: Voiding Method Toilet # Voids 2 - Exam Abdomen: Soft, mild distention, mild right and left-sided tenderness - Labs CBC & Chem 7: 08/22/18 06:15 08/22/18 06:15 Labs: Abnormal Lab Results - Last 24 Hours (Table) 08/22/18 08/22/18 08/22/18 Range/Units 06:15 06:15 06:15 RBC 3.06 L (4.30-5.90) m/uL Hgb 9.7 L (13.0-17.5) gm/dL Hct 29.7 L (39.0-53.0) % Plt Count 465 H (150-450) k/uL APTT 82.7 H (22.0-30.0) sec Potassium 3.2 L (3.5-5.1) mmol/L BUN 2 L (9-20) mg/dL Creatinine 0.47 L (0.66-1.25) mg/dL Glucose 108 H (74-99) mg/dL Calcium 8.1 L (8.4-10.2) mg/dL AST 15 L (17-59) U/L Alkaline Phosphatase 287 H (38-126) U/L Total Protein 5.9 L (6.3-8.2) g/dL Albumin 2.4 L (3.5-5.0) g/dL Microbiology - Last 24 Hours (Table) 08/18/18 21:37 Blood Culture - Preliminary Blood No Growth after 72 hours Assessment and Plan (1) Diverticulitis Narrative/Plan: Discussed case yesterday with interventional radiology. They're comfortable proceeding with biopsy of the liver lesion. Will need to hold anticoagulation obviously prior to that. Increase diet for now. Continue antibiotics. Current Visit: Yes Status: Acute Code(s): K57.92 - DVTRCLI OF INTEST, PART UNSP, W/O PERF OR ABSCESS W/O BLEED SNOMED Code(s): 404570426
[2018-08-22] MEDS: POTASSIUM CHLORIDE ER 20 MEQ TAB.ER PO SCH ×2 (12:19→14:43)
[2018-08-22] MEDS: MAGNESIUM SULFATE-D5W PMX 1 GM in DEXTROSE/WATER 1 100ML.BAG IVPB SCH ×2 (14:43→16:02)
[2018-08-22] MEDS: SODIUM CHLORIDE 0.9% 1,000 ML IV SCH (16:02)
--- NOTE | 2018-08-22 19:00 | PN ---
PROGRESS NOTE DATE OF SERVICE: 08/22/2018 This is a 58-year-old gentleman who was admitted with acute abdominal pain, acute possibly diverticulitis, perforation also hepatic mass also. Surgery is planning possible biopsy tomorrow. Dr. Macias, Dr. Hudson and gastroenterology following the patient closely. Liver MRI has been noted. No chest pain. No palpitations. No fever. Patient on empiric antibiotics. EXAM: Alert and oriented x3. Pulse 89, blood pressure 111/71, respirations 16, temperature 98, pulse ox 94% on room air. HEENT: Conjunctivae normal. Oral mucosa moist. NECK: No jugular venous distention. No lymph node enlargement. CARDIOVASCULAR: S1, S2. RESPIRATORY: Diminished breath sounds at the bases. No rhonchi, no crackles. ABDOMEN: Soft, nontender. No mass palpable. LEGS: No swelling. NERVOUS SYSTEM: No focal deficits. LAB STUDIES: WBC 9.2, hemoglobin is 10.7, sodium is 137, potassium 3.2. Other labs are noted. Alkaline phosphatase is still elevated. ASSESSMENT: 1. Acute abdominal pain with possible acute diverticulitis with possible perforation with abscess of the descending colon. 2. Hepatic mass, possible malignancy with cholangiocarcinoma with central necrosis or abscess. 3. Hepatic venous thrombosis. 4. History of recent pneumonia. 5. History of recent weight loss. 6. Extrahepatic portal obstruction. 7. Hypokalemia. 8. Increased ALT, alkaline phosphatase. 9. Mild coagulopathy. 10.Increased WBC. 11.Anemia of undetermined origin. 12.Hypertension. 13.History of hypercholesteremia. 14.History of hernia repair. 15.History of nicotine dependence. 16.History of THC. 17.FULL CODE. RECOMMENDATIONS AND DISCUSSION: Recommend to continue current medication, continue to monitor, continue symptomatic treatment. Otherwise, evaluation. Closely monitor along with multiple consultants. Continue with antibiotics. Further recommendations to follow. MMODL / IJN: [id number] / MTDD
--- NOTE | 2018-08-22 19:44 | P.PN ---
Subjective Progress Note Date: 08/22/18 Principal diagnosis: Hepatic vein thrombosis, liver mass Patient reporting less abdominal pain. He is tolerating his diet. Reports that he is passing flatus and having normal bowel movements. Objective - Vital Signs Vital signs: Vital Signs Temp 97.6 F 08/22/18 17:05 Pulse 89 08/22/18 17:05 Resp 16 08/22/18 17:05 BP 117/72 08/22/18 17:05 Pulse Ox 96 08/22/18 17:05 Intake & Output 08/22/18 08/22/18 08/23/18 06:59 18:59 06:59 Intake Total 250 920 Output Total 904 Balance -654 920 Weight 68 kg Intake: Intake, IV Titration 250 200 Amount Heparin Sod,Pork in 0.45% 250 NaCl 25,000 unit In 0.45 % NaCl 1 250ml.bag @ 18 UNITS/KG/HR 12.24 mls/hr IV .[id number] [facility] Rx#: [id number] Magnesium Sulfate-D5w Pmx 200 1 gm In Dextrose/Water 1 100ml.bag @ 100 mls/hr IVPB Q1H [facility] Rx#: [id number] Oral 720 Output: Urine 900 Stool 4 Other: Voiding Method Toilet # Voids 2 - Exam On physical examination, patient appears comfortable in no apparent distress. HEAD: Normocephalic, atraumatic. EYES: No scleral icterus. No conjunctival injection. MOUTH: No lesions, tongue midline. NECK: Trachea midline, no gross abnormalities. CHEST: Clear to auscultation with no wheezing or rhonchi appreciated. HEART: Regular rate and rhythm. ABDOMEN: Soft. Bowel sounds are positive. No organomegaly. No guarding or rigidity. EXTREMITIES: No pedal edema. SKIN: No rashes, no jaundice. NEUROLOGIC: Alert and oriented x3. No focal deficits. - Labs CBC & Chem 7: 08/22/18 06:15 08/22/18 14:23 Labs: Abnormal Lab Results - Last 24 Hours (Table) 08/22/18 08/22/18 08/22/18 Range/Units 06:15 06:15 06:15 RBC 3.06 L (4.30-5.90) m/uL Hgb 9.7 L (13.0-17.5) gm/dL Hct 29.7 L (39.0-53.0) % Plt Count 465 H (150-450) k/uL APTT 82.7 H (22.0-30.0) sec Potassium 3.2 L (3.5-5.1) mmol/L BUN 2 L (9-20) mg/dL Creatinine 0.47 L (0.66-1.25) mg/dL Glucose 108 H (74-99) mg/dL Calcium 8.1 L (8.4-10.2) mg/dL AST 15 L (17-59) U/L Alkaline Phosphatase 287 H (38-126) U/L Total Protein 5.9 L (6.3-8.2) g/dL Albumin 2.4 L (3.5-5.0) g/dL 08/22/18 08/22/18 Range/Units 14:23 14:23 RBC (4.30-5.90) m/uL Hgb (13.0-17.5) gm/dL Hct (39.0-53.0) % Plt Count (150-450) k/uL APTT 73.9 H (22.0-30.0) sec Potassium 3.3 L (3.5-5.1) mmol/L BUN (9-20) mg/dL Creatinine (0.66-1.25) mg/dL Glucose (74-99) mg/dL Calcium (8.4-10.2) mg/dL AST (17-59) U/L Alkaline Phosphatase (38-126) U/L Total Protein (6.3-8.2) g/dL Albumin (3.5-5.0) g/dL Microbiology - Last 24 Hours (Table) 08/18/18 21:37 Blood Culture - Preliminary Blood No Growth after 72 hours Assessment and Plan (1) Portal vein thrombosis Narrative/Plan: Patient with findings of occlusion of the left and right portal veins. Unknown etiology, may be secondary to underlying malignancy with concern for mass and liver as well as a area of tissue collection in the area of the descending colon. Current Visit: Yes Status: Acute Code(s): I81 - PORTAL VEIN THROMBOSIS SNOMED Code(s): 86497690 (2) Liver mass Narrative/Plan: Large mass in the posterior liver, unclear if secondary to infection and phlegmon or secondary to malignancy or other process with MRI performed more consistent with underlying liver mass. Current Visit: Yes Status: Acute Code(s): R16.0 - HEPATOMEGALY, NOT ELSEWHERE CLASSIFIED SNOMED Code(s): 273249850 (3) Diverticulosis Narrative/Plan: Patient with known history of diverticulosis and prior episodes of diverticulitis who had findings of a 4 cm collection of tissue in the descending colon with concern for possible diverticulitis. Current Visit: Yes Status: Acute Code(s): K57.90 - DVRTCLOS OF INTEST, PART UNSP, W/O PERF OR ABSCESS W/O BLEED SNOMED Code(s): 32233953 (4) Elevated liver enzymes Narrative/Plan: Mild elevation of AST and ALT, trending down, likely related to liver mass seen on MRI. Current Visit: Yes Status: Acute Code(s): R74.8 - ABNORMAL LEVELS OF OTHER SERUM ENZYMES SNOMED Code(s): 662956082 Plan: supportive care Okay for diet Appreciate recommendations from hematology/oncology, surgery, infectious disease and vascular surgery Continue anticoagulation Continue Unasyn and Flagyl Tentative plan for liver biopsy on Thursday Thank you for allowing us to participate in the care of the patient we will continue to follow
--- NOTE | 2018-08-22 21:56 | P.PN ---
Subjective Progress Note Date: 08/22/18 Principal diagnosis: New Mass Posterior Liver and Left descending colon abnormality Patient seen and evaluated reviewed MRI findings which are consistent with a suspicious lobulated mass in the posterior Liver. PLan is to proceed with liver biopsy while inpatient by Interventional radiology Objective - Vital Signs Vital signs: Vital Signs Temp 97.6 F 08/22/18 17:05 Pulse 89 08/22/18 17:05 Resp 16 08/22/18 17:05 BP 117/72 08/22/18 17:05 Pulse Ox 96 08/22/18 17:05 Intake & Output 08/22/18 08/22/18 08/23/18 06:59 18:59 06:59 Intake Total 250 920 250 Output Total 904 Balance -654 920 250 Weight 68 kg Intake: Intake, IV Titration 250 200 250 Amount Heparin Sod,Pork in 0.45% 250 250 NaCl 25,000 unit In 0.45 % NaCl 1 250ml.bag @ 18 UNITS/KG/HR 12.24 mls/hr IV .[id number] [facility] Rx#: [id number] Magnesium Sulfate-D5w Pmx 200 1 gm In Dextrose/Water 1 100ml.bag @ 100 mls/hr IVPB Q1H [facility] Rx#: [id number] Oral 720 Output: Urine 900 Stool 4 Other: Voiding Method Toilet # Voids 2 1 - Exam Gen: NAD, ALert and happy Head NC, NT Eye: Non-icteric Neck Supple No lymphadenopathy cervical or axilla Lungs: Diminished bibasilar expiratory wheeze, No increased effort Heart: RRR, S1s2 Abdomen: appears distended, bloated, although soft, non tender Ext: No edema Neuro - non-focal - Labs CBC & Chem 7: 08/22/18 06:15 08/22/18 14:23 Labs: Abnormal Lab Results - Last 24 Hours (Table) 08/22/18 08/22/18 08/22/18 Range/Units 06:15 06:15 06:15 RBC 3.06 L (4.30-5.90) m/uL Hgb 9.7 L (13.0-17.5) gm/dL Hct 29.7 L (39.0-53.0) % Plt Count 465 H (150-450) k/uL APTT 82.7 H (22.0-30.0) sec Potassium 3.2 L (3.5-5.1) mmol/L BUN 2 L (9-20) mg/dL Creatinine 0.47 L (0.66-1.25) mg/dL Glucose 108 H (74-99) mg/dL Calcium 8.1 L (8.4-10.2) mg/dL AST 15 L (17-59) U/L Alkaline Phosphatase 287 H (38-126) U/L Total Protein 5.9 L (6.3-8.2) g/dL Albumin 2.4 L (3.5-5.0) g/dL 08/22/18 08/22/18 Range/Units 14:23 14:23 RBC (4.30-5.90) m/uL Hgb (13.0-17.5) gm/dL Hct (39.0-53.0) % Plt Count (150-450) k/uL APTT 73.9 H (22.0-30.0) sec Potassium 3.3 L (3.5-5.1) mmol/L BUN (9-20) mg/dL Creatinine (0.66-1.25) mg/dL Glucose (74-99) mg/dL Calcium (8.4-10.2) mg/dL AST (17-59) U/L Alkaline Phosphatase (38-126) U/L Total Protein (6.3-8.2) g/dL Albumin (3.5-5.0) g/dL Microbiology - Last 24 Hours (Table) 08/18/18 21:37 Blood Culture - Preliminary Blood No Growth after 72 hours Assessment and Plan Plan: Assessment and Recommendations: 1. ?Hepatic or Portal Vein Thrombosis - Dr. Segal to review MRI in am although likely tumor thrombus as not clearly identified as thrombus in MRI. - Continue heparin drip at this time until a tissue biopsy of suspicious areas concerning for malignancy can be obtained - Will determine if ongoing anticoagulation required after review in am of MRI to determine if true thrombus versus tumor 2. New Liver Mass: - Heterogenous masslike area @ posterior Liver 8x4.6x9.3 - Concern for underlying malignancy, will need tissue biopsy, will await surgic al and GI consultation for approach as CT also Identified left colon area of concern, diverticulitis with localized perforation. Patient states this has been present for two years and was previously treated with antibiotics 3. Daily Alcohol and tobacco use Plan: -MRI of the liver was reviewed and discussed with patient, Surgical note reviewed and plan to proceed with liver biopsy while inpatient. - Review of MRI furth to determine plan for ongoing anticoagulation.
[2018-08-23] MEDS: AMPICILLIN-SULBACTAM 3 GM in SODIUM CHLORIDE 0.9% 100 ML IVPB SCH ×4 (02:19→20:41)
[2018-08-23] MEDS: HYDROcodone/APAP 5-325MG 1 EACH TAB PO PRN ×2 (05:25→17:22)
--- NOTE | 2018-08-23 06:03 | PN ---
PROGRESS NOTE DATE OF SERVICE: 08/22/2018. REASON FOR FOLLOWUP: Question of a liver abscess and diverticulitis. INTERVAL HISTORY: The patient is afebrile. The patient is breathing comfortably. Denies any chest pain, shortness of breath or cough. No abdominal pain. No nausea, vomiting or diarrhea. PHYSICAL EXAMINATION: On examination, blood pressure 117/72 with the pulse of 89, temperature 97.6. He is 96% on room air. General description is a middle-aged male lying in bed in no distress. RESPIRATORY SYSTEM: Unlabored breathing, clear to auscultation anteriorly. HEART: S1, S2. Regular rate and rhythm. ABDOMEN: Soft, no tenderness. LABS: Hemoglobin 9.7, white count 9.2 with a BUN of 2, creatinine 0.47. Blood cultures have been negative so far. DIAGNOSTIC IMPRESSION AND PLAN: Patient with abnormality seen on the liver in this patient who did have evidence of a diverticulitis with localized perforation, concern likely for a liver abscess. Malignancy not entirely excluded. The patient is scheduled for CT-guided drainage of this area along with biopsy. Continue with Unasyn and continue with supportive care. MMODL / IJN: [id number] /
[2018-08-23 06:30] LABS: Basophils % (A) 0 %; Eosinophils # (A) 0.1 k/uL (0-0.7); Eosinophils % (A) 1 %; HCT 32.4 % (39.0-53.0); HGB 10.5 gm/dL (13.0-17.5); Lymphocytes # (A) 1.3 k/uL (1.0-4.8); Lymphocytes % (A) 16 %; MCH 32.1 pg (25.0-35.0); MCHC 32.4 g/dL (31.0-37.0); MCV 98.8 fL (80.0-100.0); Mean Platelet Volume 6.2; Monocytes # (A) 0.3 k/uL (0-1.0); Monocytes % (A) 4 %; Neutrophils # (A) 6.3 k/uL (1.3-7.7); Neutrophils % (A) 77 %; Platelet Count 520 k/uL (150-450); RBC 3.28 m/uL (4.30-5.90); RDW 13.3 % (11.5-15.5); WBC 8.1 k/uL (3.8-10.6)
[2018-08-23 06:41] LABS: ALT 48 U/L (21-72); AST 12 U/L (17-59); Albumin 2.5 g/dL (3.5-5.0); Alkaline Phosphatase 346 U/L (38-126); Anion Gap 10 mmol/L; Blood Urea Nitrogen 2 mg/dL (9-20); Carbon Dioxide 21 mmol/L (22-30); Chloride 105 mmol/L (98-107); Glucose 112 mg/dL (74-99); Magnesium 2.1 mg/dL (1.6-2.3); Potassium 3.6 mmol/L (3.5-5.1); Sodium 136 mmol/L (137-145); Total Bilirubin 0.6 mg/dL (0.2-1.3); Total Protein 6.5 g/dL (6.3-8.2)
[2018-08-23] MEDS: PANTOPRAZOLE 40 MG/10 ML VIAL IV SCH (09:35)
[2018-08-23] MEDS: amLODIPine 10 MG TAB PO SCH (09:35)
[2018-08-23] MEDS: LISINOPRIL 20 MG TAB PO SCH (09:35)
[2018-08-23] MEDS: metroNIDAZOLE-NS PMX 500 MG in SALINE 1 100ML.BAG IVPB SCH ×2 (10:54→17:18)
[2018-08-23 11:03] LABS: INR 1.4 (<1.2); Prothrombin Time 13.8 sec (9.0-12.0)
--- NOTE | 2018-08-23 11:29 | P.PN ---
<Rukhsana Freeman A - Last Filed: 08/23/18 11:21> Subjective Progress Note Date: 08/23/18 CHIEF COMPLAINT: abdominal pain HISTORY OF PRESENT ILLNESS: Patient examined at the bedside. Daughter present. Patient reports minimal pain. Rating 2/10 on left lower quadrant. Denies nausea or vomiting. Tolerating full liquid diet. Passing flatus. WBC 8.1. PHYSICAL EXAM: VITAL SIGNS: Currently stable. GENERAL: Well-developed in no acute distress. HEENT: No sclera icterus. Extraocular movements grossly intact. Moist buccal mucosa. Head is atraumatic, normocephalic. Hears conversational speech. No nasal drainage. NECK: Supple without lymphadenopathy. CHEST: Non-labored respirations and equal bilateral excursions. CARDIOVASCULAR: Regular rate with regular rhythm. Palpable 2+ radial pulses. ABDOMEN: Soft. Nondistended. Nontender. MUSCULOSKELETAL: No clubbing, cyanosis or edema. NEUROLOGIC: No focal or lateralizing signs. Cranial nerves II through XII grossly intact. PSYCH: Appropriate affect. Alert and oriented to person, place and time. SKIN: Well perfused. Good skin turgor. ASSESSMENT: 1. Diverticulitis 2. Liver Mass 3. Portal vein thrombosis PLAN: 1. Patient to undergo biopsy of liver mass today 2. Heparin will need to be held prior to procedure 3. Continue antibiotics 4. Continue full liquid diet after procedure Nurse practitioner note has been reviewed by physician. Signing provider agrees with the documented findings, assessment, and plan of care. Objective - Vital Signs Vital signs: Vital Signs Temp 92.3 F L 08/23/18 04:00 Pulse 79 08/23/18 04:00 Resp 15 08/23/18 04:00 BP 130/66 08/23/18 04:00 Pulse Ox 96 08/23/18 04:00 Intake & Output 08/22/18 08/23/18 08/23/18 18:59 06:59 18:59 Intake Total 920 250 Output Total 2 Balance 920 248 Weight 68.7 kg Intake: Intake, IV Titration 200 250 Amount Heparin Sod,Pork in 0.45% 250 NaCl 25,000 unit In 0.45 % NaCl 1 250ml.bag @ 18 UNITS/KG/HR 12.24 mls/hr IV .[id number] [facility] Rx#: [id number] Magnesium Sulfate-D5w Pmx 200 1 gm In Dextrose/Water 1 100ml.bag @ 100 mls/hr IVPB Q1H [facility] Rx#: [id number] Oral 720 Output: Stool 2 Other: Voiding Method Toilet # Voids 1 - Labs CBC & Chem 7: 08/23/18 06:05 08/23/18 06:05 Labs: Abnormal Lab Results - Last 24 Hours (Table) 08/22/18 08/22/18 08/23/18 Range/Units 14:23 14:23 06:05 RBC 3.28 L (4.30-5.90) m/uL Hgb 10.5 L (13.0-17.5) gm/dL Hct 32.4 L (39.0-53.0) % Plt Count 520 H (150-450) k/uL PT (9.0-12.0) sec INR (<1.2) APTT 73.9 H (22.0-30.0) sec Sodium (137-145) mmol/L Potassium 3.3 L (3.5-5.1) mmol/L Carbon Dioxide (22-30) mmol/L BUN (9-20) mg/dL Creatinine (0.66-1.25) mg/dL Glucose (74-99) mg/dL Calcium (8.4-10.2) mg/dL AST (17-59) U/L Alkaline Phosphatase (38-126) U/L Albumin (3.5-5.0) g/dL 08/23/18 08/23/18 08/23/18 Range/Units 06:05 06:11 06:11 RBC (4.30-5.90) m/uL Hgb (13.0-17.5) gm/dL Hct (39.0-53.0) % Plt Count (150-450) k/uL PT 13.8 H (9.0-12.0) sec INR 1.4 H (<1.2) APTT 32.2 H (22.0-30.0) sec Sodium 136 L (137-145) mmol/L Potassium (3.5-5.1) mmol/L Carbon Dioxide 21 L (22-30) mmol/L BUN 2 L (9-20) mg/dL Creatinine 0.44 L (0.66-1.25) mg/dL Glucose 112 H (74-99) mg/dL Calcium 8.0 L (8.4-10.2) mg/dL AST 12 L (17-59) U/L Alkaline Phosphatase 346 H (38-126) U/L Albumin 2.5 L (3.5-5.0) g/dL Microbiology - Last 24 Hours (Table) 08/18/18 21:37 Blood Culture - Preliminary Blood No Growth after 96 hours <Scott Macias - Last Filed: 08/23/18 15:42> Subjective As above. Apparently biopsy was not performed today because the heparin was not held as the nursing staff was not aware when the procedure was going to be performed. Will resume diet. Repeat attempts at biopsy tomorrow. Objective - Vital Signs Vital signs: Vital Signs Temp 97.7 F 08/23/18 08:00 Pulse 86 08/23/18 08:00 Resp 15 08/23/18 04:00 BP 112/75 08/23/18 08:00 Pulse Ox 97 08/23/18 08:00 Intake & Output 08/22/18 08/23/18 08/23/18 18:59 06:59 18:59 Intake Total 920 500 700 Output Total 2 Balance 920 498 700 Weight 68.7 kg 68.7 kg Intake: Intake, IV Titration 200 500 Amount Heparin Sod,Pork in 0.45% 500 NaCl 25,000 unit In 0.45 % NaCl 1 250ml.bag @ 18 UNITS/KG/HR 12.24 mls/hr IV .[id number] [facility] Rx#: [id number] Magnesium Sulfate-D5w Pmx 200 1 gm In Dextrose/Water 1 100ml.bag @ 100 mls/hr IVPB Q1H [facility] Rx#: [id number] Oral 720 700 Output: Stool 2 Other: Voiding Method Toilet # Voids 1 3 - Labs CBC & Chem 7: 08/23/18 06:05 08/23/18 06:05 Labs: Abnormal Lab Results - Last 24 Hours (Table) 08/23/18 08/23/18 08/23/18 Range/Units 06:05 06:05 06:11 RBC 3.28 L (4.30-5.90) m/uL Hgb 10.5 L (13.0-17.5) gm/dL Hct 32.4 L (39.0-53.0) % Plt Count 520 H (150-450) k/uL PT (9.0-12.0) sec INR (<1.2) APTT 32.2 H (22.0-30.0) sec Sodium 136 L (137-145) mmol/L Carbon Dioxide 21 L (22-30) mmol/L BUN 2 L (9-20) mg/dL Creatinine 0.44 L (0.66-1.25) mg/dL Glucose 112 H (74-99) mg/dL Calcium 8.0 L (8.4-10.2) mg/dL AST 12 L (17-59) U/L Alkaline Phosphatase 346 H (38-126) U/L Albumin 2.5 L (3.5-5.0) g/dL 08/23/18 Range/Units 06:11 RBC (4.30-5.90) m/uL Hgb (13.0-17.5) gm/dL Hct (39.0-53.0) % Plt Count (150-450) k/uL PT 13.8 H (9.0-12.0) sec INR 1.4 H (<1.2) APTT (22.0-30.0) sec Sodium (137-145) mmol/L Carbon Dioxide (22-30) mmol/L BUN (9-20) mg/dL Creatinine (0.66-1.25) mg/dL Glucose (74-99) mg/dL Calcium (8.4-10.2) mg/dL AST (17-59) U/L Alkaline Phosphatase (38-126) U/L Albumin (3.5-5.0) g/dL Microbiology - Last 24 Hours (Table) 08/18/18 21:37 Blood Culture - Preliminary Blood No Growth after 96 hours Assessment and Plan (1) Diverticulitis Current Visit: Yes Status: Acute Code(s): K57.92 - DVTRCLI OF INTEST, PART UNSP, W/O PERF OR ABSCESS W/O BLEED SNOMED Code(s): 390821267
[2018-08-23] MEDS: HEPARIN SOD,PORK IN 0.45% NACL 25,000 UNIT in 0.45% NACL 1 250ML.BAG IV SCH (12:56)
[2018-08-23] MEDS: SODIUM CHLORIDE 0.9% 1,000 ML IV SCH (13:02)
--- NOTE | 2018-08-23 17:09 | P.PN ---
Subjective Progress Note Date: 08/23/18 Principal diagnosis: portal vein thrombosis, liver mass In f/u today pt is waiting for liver biopsy, his abd pain in better since admit , more of his pain in the LUQ/left abd, no vomiting or bleeding Objective - Vital Signs Vital signs: Vital Signs Temp 97.7 F 08/23/18 08:00 Pulse 79 08/23/18 12:00 Resp 15 08/23/18 04:00 BP 112/69 08/23/18 12:00 Pulse Ox 97 08/23/18 12:00 Intake & Output 08/22/18 08/23/18 08/23/18 18:59 06:59 18:59 Intake Total 920 500 700 Output Total 2 Balance 920 498 700 Weight 68.7 kg 68.7 kg Intake: Intake, IV Titration 200 500 Amount Heparin Sod,Pork in 0.45% 500 NaCl 25,000 unit In 0.45 % NaCl 1 250ml.bag @ 18 UNITS/KG/HR 12.24 mls/hr IV .[id number] [facility] Rx#: [id number] Magnesium Sulfate-D5w Pmx 200 1 gm In Dextrose/Water 1 100ml.bag @ 100 mls/hr IVPB Q1H [facility] Rx#: [id number] Oral 720 700 Output: Stool 2 Other: Voiding Method Toilet # Voids 1 3 - Constitutional General appearance: Present: average body habitus, cooperative, no acute distress - EENT Eyes: Present: anicteric sclerae, EOMI ENT: Present: hearing grossly normal, normal oropharynx - Respiratory Respiratory: bilateral: CTA - Cardiovascular Heart sounds: normal: S1, S2 - Peripheral edema leg Peripheral Edema: bilateral: None - Gastrointestinal General gastrointestinal: Present: normal bowel sounds, soft Localized gastrointestinal: tender: LUQ - Neurologic Neurologic: Present: CNII-XII intact - Musculoskeletal Musculoskeletal: Present: strength equal bilaterally - Psychiatric Psychiatric: Present: A&O x's 3, appropriate affect, intact judgment & insight - Labs CBC & Chem 7: 08/23/18 06:05 08/23/18 06:05 Labs: Abnormal Lab Results - Last 24 Hours (Table) 08/23/18 08/23/18 08/23/18 Range/Units 06:05 06:05 06:11 RBC 3.28 L (4.30-5.90) m/uL Hgb 10.5 L (13.0-17.5) gm/dL Hct 32.4 L (39.0-53.0) % Plt Count 520 H (150-450) k/uL PT (9.0-12.0) sec INR (<1.2) APTT 32.2 H (22.0-30.0) sec Sodium 136 L (137-145) mmol/L Carbon Dioxide 21 L (22-30) mmol/L BUN 2 L (9-20) mg/dL Creatinine 0.44 L (0.66-1.25) mg/dL Glucose 112 H (74-99) mg/dL Calcium 8.0 L (8.4-10.2) mg/dL AST 12 L (17-59) U/L Alkaline Phosphatase 346 H (38-126) U/L Albumin 2.5 L (3.5-5.0) g/dL 08/23/18 Range/Units 06:11 RBC (4.30-5.90) m/uL Hgb (13.0-17.5) gm/dL Hct (39.0-53.0) % Plt Count (150-450) k/uL PT 13.8 H (9.0-12.0) sec INR 1.4 H (<1.2) APTT (22.0-30.0) sec Sodium (137-145) mmol/L Carbon Dioxide (22-30) mmol/L BUN (9-20) mg/dL Creatinine (0.66-1.25) mg/dL Glucose (74-99) mg/dL Calcium (8.4-10.2) mg/dL AST (17-59) U/L Alkaline Phosphatase (38-126) U/L Albumin (3.5-5.0) g/dL Microbiology - Last 24 Hours (Table) 08/18/18 21:37 Blood Culture - Preliminary Blood No Growth after 96 hours Assessment and Plan (1) Hepatic vein thrombosis Narrative/Plan: Pt is currently on heparin drip. Dr. Segal has asked me to discuss case with Radiologist, will follow up. Current Visit: Yes Status: Acute Priority: High Code(s): I82.0 - BUDD- CHIARI SYNDROME SNOMED Code(s): 24862782 (2) Liver mass Narrative/Plan: Pt is pending abscess drainage/liver biopsy, path pending. Will continue to follow Current Visit: Yes Status: Acute Priority: High Code(s): R16.0 - HEPATOMEGALY, NOT ELSEWHERE CLASSIFIED SNOMED Code(s): 662201989
--- NOTE | 2018-08-23 17:15 | PN ---
PROGRESS NOTE DATE OF SERVICE: 08/23/2018. REASON FOR FOLLOWUP: Acute sigmoid diverticulitis with perforation, possible abscess. INTERVAL HISTORY: The patient is afebrile. The patient was scheduled for a CT-guided aspirate as well as biopsy. Unfortunately, the patient heparin was not shutdown and Radiology is going to perform the procedure tomorrow. The patient denies having any chest pain or shortness of breath or cough. His abdominal pain has improved. No nausea, no vomiting. No diarrhea. PHYSICAL EXAMINATION: Blood pressure 124/75 with a pulse of 86. Temperature 97.7. He is 97% on room air. General description is a middle-aged male lying in bed in no distress. Respiratory system: Unlabored breathing. Clear to auscultation anteriorly. Heart S1, S2. Regular rate and rhythm. Abdomen soft. No tenderness. LABS: Hemoglobin is 10.5, white count 8.1. BUN of 2, creatinine 0.44. DIAGNOSTIC IMPRESSION AND PLAN: Patient with acute sigmoid diverticulitis with perforation, localized abscess with abnormality on the liver, highly suspicious for abscess, malignancy not entirely excluded for a CT-guided aspirate of this area and biopsy tomorrow. Keep the patient on Unasyn. The patient will likely need a PICC line for outpatient IV antibiotic therapy in view of extensive infection if confirmed to be an abscess rather than a tumor. MMODL / IJN: [id number] /
--- NOTE | 2018-08-23 19:54 | PN ---
PROGRESS NOTE DATE OF SERVICE: 08/23/2018 This 58-year-old gentleman admitted with acute abdominal pain also had possible diverticulitis with possible microperforation, also had hepatic mass, also. The patient also had hepatic vein thrombosis of undetermined etiology. Liver MRI has been done. Interventional Radiology is planning a liver biopsy today. No chest pain. No palpitations. No fever. Multiple consultants are following the patient closely. Patient is on IV empiric therapy at this time. No chest pain. No palpitation. EXAM: Alert and oriented x3. The pulse is 87, blood pressure 112/75, respirations 16, temperature 97.7, pulse ox 97% on room air. HEENT: Conjunctivae normal. NECK: No jugular venous distention. CARDIOVASCULAR: S1, S2. RESPIRATORY: Breath sounds diminished in the bases. A few scattered rhonchi. ABDOMEN: Soft, nontender. No mass palpable. LEGS: No edema. NERVOUS SYSTEM: No focal deficits. LABS: WBC 8, hemoglobin 10.5, and APTT is 32.2. Sodium 136. ASSESSMENT: 1. Acute abdominal pain with possible acute diverticulitis with possible microperforation with abscess of the descending colon. 2. Hepatic mass, possible malignancy, cholangiocarcinoma with central necrosis or abscess. 3. Hepatic vein thrombosis of undetermined etiology. 4. History of recent pneumonia. 5. History of recent weight loss. 6. Possible extrahepatic portal obstruction. 7. Hypokalemia. 8. Increased ALT, alkaline phosphatase. 9. Mild coagulopathy. 10.Increased WBC. 11.Anemia of undetermined origin. 12.Hypertension. 13.History of hypercholesteremia. 14.History of hernia repair. 15.History of nicotine dependence. 16.History of THC. 17.FULL CODE. RECOMMENDATIONS AND DISCUSSION: I recommend to continue current medications, continue with monitoring and symptomatic treatment. Otherwise at this time I would recommend closely follow with multiple consultants. Continue with empiric antibiotics. Otherwise, I would recommend proceed with biopsy. Otherwise, I discussed with Dr. Macias as well as Dr. Almanzar and will continue to monitor. Further recommendations to follow. MMODL / IJN: [id number] /
--- NOTE | 2018-08-23 22:03 | P.PN ---
Subjective Progress Note Date: 08/23/18 Principal diagnosis: Hepatic vein thrombosis, liver mass Patient lying in bed, feeling well and in a good mood, however somewhat frustrated that liver biopsy was not performed today. No abdominal pain reported. He has tolerated his diet. Objective - Vital Signs Vital signs: Vital Signs Temp 98.2 F 08/23/18 20:00 Pulse 82 08/23/18 20:00 Resp 15 08/23/18 20:00 BP 103/67 08/23/18 20:00 Pulse Ox 95 08/23/18 20:00 Intake & Output 08/23/18 08/23/18 08/24/18 06:59 18:59 06:59 Intake Total 500 700 Output Total 2 Balance 498 700 Weight 68.7 kg 68.7 kg Intake: Intake, IV Titration 500 Amount Heparin Sod,Pork in 0.45% 500 NaCl 25,000 unit In 0.45 % NaCl 1 250ml.bag @ 18 UNITS/KG/HR 12.24 mls/hr IV .[id number] [facility] Rx#: [id number] Oral 700 Output: Stool 2 Other: Voiding Method Toilet # Voids 1 3 - Exam On physical examination, patient appears comfortable in no apparent distress. HEAD: Normocephalic, atraumatic. EYES: No scleral icterus. No conjunctival injection. MOUTH: No lesions, tongue midline. NECK: Trachea midline, no gross abnormalities. CHEST: Clear to auscultation with no wheezing or rhonchi appreciated. HEART: Regular rate and rhythm. ABDOMEN: Soft. Bowel sounds are positive. No organomegaly. No guarding or rigidity. EXTREMITIES: No pedal edema. SKIN: No rashes, no jaundice. NEUROLOGIC: Alert and oriented x3. No focal deficits. - Labs CBC & Chem 7: 08/23/18 06:05 08/23/18 06:05 Labs: Abnormal Lab Results - Last 24 Hours (Table) 08/23/18 08/23/18 08/23/18 Range/Units 06:05 06:05 06:11 RBC 3.28 L (4.30-5.90) m/uL Hgb 10.5 L (13.0-17.5) gm/dL Hct 32.4 L (39.0-53.0) % Plt Count 520 H (150-450) k/uL PT (9.0-12.0) sec INR (<1.2) APTT 32.2 H (22.0-30.0) sec Sodium 136 L (137-145) mmol/L Carbon Dioxide 21 L (22-30) mmol/L BUN 2 L (9-20) mg/dL Creatinine 0.44 L (0.66-1.25) mg/dL Glucose 112 H (74-99) mg/dL Calcium 8.0 L (8.4-10.2) mg/dL AST 12 L (17-59) U/L Alkaline Phosphatase 346 H (38-126) U/L Albumin 2.5 L (3.5-5.0) g/dL 08/23/18 08/23/18 Range/Units 06:11 19:22 RBC (4.30-5.90) m/uL Hgb (13.0-17.5) gm/dL Hct (39.0-53.0) % Plt Count (150-450) k/uL PT 13.8 H (9.0-12.0) sec INR 1.4 H (<1.2) APTT 56.4 H (22.0-30.0) sec Sodium (137-145) mmol/L Carbon Dioxide (22-30) mmol/L BUN (9-20) mg/dL Creatinine (0.66-1.25) mg/dL Glucose (74-99) mg/dL Calcium (8.4-10.2) mg/dL AST (17-59) U/L Alkaline Phosphatase (38-126) U/L Albumin (3.5-5.0) g/dL Microbiology - Last 24 Hours (Table) 08/18/18 21:37 Blood Culture - Preliminary Blood No Growth after 96 hours Assessment and Plan (1) Portal vein thrombosis Narrative/Plan: Patient with findings of occlusion of the left and right portal veins. Unknown etiology, may be secondary to underlying malignancy with concern for mass and liver as well as a area of tissue collection in the area of the descending colon. Current Visit: Yes Status: Acute Code(s): I81 - PORTAL VEIN THROMBOSIS SNOMED Code(s): 50747688 (2) Liver mass Narrative/Plan: Large mass in the posterior liver, unclear if secondary to infection and phlegmon or secondary to malignancy or other process with MRI performed more consistent with underlying liver mass. Current Visit: Yes Status: Acute Priority: High Code(s): R16.0 - HEPATOMEGALY, NOT ELSEWHERE CLASSIFIED SNOMED Code(s): 903539348 (3) Diverticulosis Narrative/Plan: Patient with known history of diverticulosis and prior episodes of diverticulitis who had findings of a 4 cm collection of tissue in the descending colon with concern for possible diverticulitis. Current Visit: Yes Status: Acute Code(s): K57.90 - DVRTCLOS OF INTEST, PART UNSP, W/O PERF OR ABSCESS W/O BLEED SNOMED Code(s): 09898196 (4) Elevated liver enzymes Narrative/Plan: Mild elevation of AST and ALT, trending down, likely related to liver mass seen on MRI. Current Visit: Yes Status: Acute Code(s): R74.8 - ABNORMAL LEVELS OF OTHER SERUM ENZYMES SNOMED Code(s): 433067532 Plan: supportive care Okay for diet Appreciate recommendations from hematology/oncology, surgery, infectious disease and vascular surgery Continue anticoagulation Continue Unasyn and Flagyl Tumor markers including CA-19-9, CEA and AFP negative Tentative plan for liver biopsy tomorrow Thank you for allowing us to participate in the care of the patient we will continue to follow
[2018-08-24] MEDS: metroNIDAZOLE-NS PMX 500 MG in SALINE 1 100ML.BAG IVPB SCH ×2 (00:15→08:28)
[2018-08-24] MEDS: AMPICILLIN-SULBACTAM 3 GM in SODIUM CHLORIDE 0.9% 100 ML IVPB SCH ×4 (02:12→20:50)
[2018-08-24] MEDS: PANTOPRAZOLE 40 MG/10 ML VIAL IV SCH (08:19)
[2018-08-24 08:27] LABS: ALT 40 U/L (21-72); AST 11 U/L (17-59); Albumin 2.5 g/dL (3.5-5.0); Alkaline Phosphatase 315 U/L (38-126); Anion Gap 7 mmol/L; Blood Urea Nitrogen 3 mg/dL (9-20); Calcium 8.3 mg/dL (8.4-10.2); Carbon Dioxide 24 mmol/L (22-30); Chloride 108 mmol/L (98-107); Glucose 102 mg/dL (74-99); Potassium 3.8 mmol/L (3.5-5.1); Sodium 139 mmol/L (137-145); Total Bilirubin 0.4 mg/dL (0.2-1.3); Total Protein 6.3 g/dL (6.3-8.2)
[2018-08-24 08:57] LABS: Basophils % (A) 1 %; Eosinophils # (A) 0.1 k/uL (0-0.7); Eosinophils % (A) 1 %; HCT 31.3 % (39.0-53.0); HGB 10.2 gm/dL (13.0-17.5); Lymphocytes # (A) 1.3 k/uL (1.0-4.8); Lymphocytes % (A) 14 %; MCH 32.4 pg (25.0-35.0); MCHC 32.7 g/dL (31.0-37.0); MCV 99.2 fL (80.0-100.0); Mean Platelet Volume 7.2; Monocytes # (A) 0.4 k/uL (0-1.0); Monocytes % (A) 4 %; Neutrophils % (A) 79 %; Platelet Count 486 k/uL (150-450); RBC 3.15 m/uL (4.30-5.90); RDW 13.7 % (11.5-15.5); WBC 8.9 k/uL (3.8-10.6)
--- NOTE | 2018-08-24 09:19 | P.PN ---
Subjective Progress Note Date: 08/24/18 Principal diagnosis: Elevated liver enzymes liver mass portal vein thrombosis Liver biopsy scheduled today. No abdominal complaints. Afebrile. Objective - Vital Signs Vital signs: Vital Signs Temp 98.5 F 08/24/18 03:24 Pulse 79 08/24/18 04:00 Resp 15 08/24/18 04:00 BP 159/98 08/24/18 03:24 Pulse Ox 98 08/24/18 03:24 Intake & Output 08/23/18 08/24/18 08/24/18 18:59 06:59 18:59 Intake Total 700 Output Total 905 Balance 700 -905 Weight 68.7 kg 68.5 kg Intake: Oral 700 Output: Urine 900 Stool 5 Other: Voiding Method Toilet # Voids 3 2 - Exam General appearance: The patient is alert, oriented, in no acute distress. HET: Head is normocephalic and atraumatic. Pupils are equal and reactive. Oropharynx is clear without lesions. Neck: Supple without lymphadenopathy. Trachea midline. Heart: S1 S2. Regular rate and rhythm. Lungs: No crackles or wheezes are heard. Abdomen: Soft, mild tender RUQ, nondistended with bowel sounds. No peritoneal signs. No palpable organomegaly or masses. Extremities: Normal skin color and turgor. No cyanosis, rash, ulceration, clubbing, or edema. Radial and pedal pulses are 2/4 bilaterally. Neurological: No focal deficits. Strength and sensation are grossly intact. - Labs CBC & Chem 7: 08/24/18 07:33 08/24/18 07:33 Labs: Abnormal Lab Results - Last 24 Hours (Table) 08/23/18 08/23/18 08/24/18 Range/Units 06:11 19:22 07:33 RBC 3.15 L (4.30-5.90) m/uL Hgb 10.2 L (13.0-17.5) gm/dL Hct 31.3 L (39.0-53.0) % Plt Count 486 H (150-450) k/uL PT 13.8 H (9.0-12.0) sec INR 1.4 H (<1.2) APTT 56.4 H (22.0-30.0) sec Chloride (98-107) mmol/L BUN (9-20) mg/dL Creatinine (0.66-1.25) mg/dL Glucose (74-99) mg/dL Calcium (8.4-10.2) mg/dL AST (17-59) U/L Alkaline Phosphatase (38-126) U/L Albumin (3.5-5.0) g/dL 08/24/18 Range/Units 07:33 RBC (4.30-5.90) m/uL Hgb (13.0-17.5) gm/dL Hct (39.0-53.0) % Plt Count (150-450) k/uL PT (9.0-12.0) sec INR (<1.2) APTT (22.0-30.0) sec Chloride 108 H (98-107) mmol/L BUN 3 L (9-20) mg/dL Creatinine 0.51 L (0.66-1.25) mg/dL Glucose 102 H (74-99) mg/dL Calcium 8.3 L (8.4-10.2) mg/dL AST 11 L (17-59) U/L Alkaline Phosphatase 315 H (38-126) U/L Albumin 2.5 L (3.5-5.0) g/dL Microbiology - Last 24 Hours (Table) 08/18/18 21:37 Blood Culture - Preliminary Blood No Growth after 120 hours Assessment and Plan (1) Liver mass Current Visit: Yes Status: Acute Priority: High Code(s): R16.0 - HEPATOMEGALY, NOT ELSEWHERE CLASSIFIED SNOMED Code(s): 675003615 (2) Diverticulosis Current Visit: Yes Status: Acute Code(s): K57.90 - DVRTCLOS OF INTEST, PART UNSP, W/O PERF OR ABSCESS W/O BLEED SNOMED Code(s): 01708372 (3) Portal vein thrombosis Current Visit: Yes Status: Acute Code(s): I81 - PORTAL VEIN THROMBOSIS SNOMED Code(s): 75801175 (4) Elevated liver enzymes Current Visit: Yes Status: Acute Code(s): R74.8 - ABNORMAL LEVELS OF OTHER SERUM ENZYMES SNOMED Code(s): 379366830 Plan: 1. Liver biopsy. 2. Continue antibiotics. Assessment and plan a care discussed with Dr. Almanzar
[2018-08-24] MEDS ORDERED: HYDROmorphone 1 MG/ML 1 ML SYRINGE IVP STA (10:04)
--- NOTE | 2018-08-24 10:23 | US ---
EXAMINATION TYPE: US biopsy liver, US FNA first lesion DATE OF EXAM: 08/24/2018 HISTORY: Liver mass. FINDINGS: Maximal barrier technique was utilized. The skin overlying a suitable path to the patient' s right lobe liver mass was localized with ultrasound and the overlying skin prepped and draped. Ult rasound was utilized with sterile technique. Lidocaine was used for local anesthesia. A skin marko w as made with a scalpel. An 17-gauge guide needle was advanced under direct ultrasound guidance to th e level of the mass, 2 aspirations were performed with a 22-gauge needle. And core specimen obtained of the mass with an 18-gauge needle. Specimens submitted in formalin to Pathology, aspiration submit will within culture media and for cytology. Following the procedure, hemostasis achieved and the robe ent is discharged in stable condition without complication. Sedation. IMPRESSION:STATUS POST ULTRASOUND GUIDED CORE BIOPSY and fine-needle aspiration OF right lobe liver M ASS, PATHOLOGY IS PENDING. THIS PROCEDURE IS PERFORMED BY THE UNDERSIGNED.
--- NOTE | 2018-08-24 10:57 | P.PN ---
<Rukhsana Freeman - Last Filed: 08/24/18 10:54> Subjective Progress Note Date: 08/24/18 CHIEF COMPLAINT: abdominal pain HISTORY OF PRESENT ILLNESS: Patient examined at the bedside. Patient reports minimal pain of left lower quadrant. Denies nausea or vomiting. Heparin currently on hold. Scheduled for liver biopsy this morning. WBC 8.9. Hemoglobin 10.2. He is afebrile. PHYSICAL EXAM: VITAL SIGNS: Currently stable. GENERAL: Well-developed in no acute distress. HEENT: No sclera icterus. Extraocular movements grossly intact. Moist buccal mucosa. Head is atraumatic, normocephalic. Hears conversational speech. No nasal drainage. NECK: Supple without lymphadenopathy. CHEST: Non-labored respirations and equal bilateral excursions. CARDIOVASCULAR: Regular rate with regular rhythm. Palpable 2+ radial pulses. ABDOMEN: Soft. Nondistended. Nontender. MUSCULOSKELETAL: No clubbing, cyanosis or edema. NEUROLOGIC: No focal or lateralizing signs. Cranial nerves II through XII grossly intact. PSYCH: Appropriate affect. Alert and oriented to person, place and time. SKIN: Well perfused. Good skin turgor. ASSESSMENT: 1. Diverticulitis 2. Liver Mass 3. Portal vein thrombosis PLAN: 1. Patient to undergo biopsy of liver mass today 2. Hold heparin for biopsy 3. Continue antibiotics 4. Continue heart healthy diet after procedure Nurse practitioner note has been reviewed by physician. Signing provider agrees with the documented findings, assessment, and plan of care. Objective - Vital Signs Vital signs: Vital Signs Temp 98.5 F 08/24/18 03:24 Pulse 95 08/24/18 09:48 Resp 16 08/24/18 09:48 BP 139/85 08/24/18 09:48 Pulse Ox 96 08/24/18 09:48 Intake & Output 08/23/18 08/24/18 08/24/18 18:59 06:59 18:59 Intake Total 700 Output Total 905 Balance 700 -905 Weight 68.7 kg 68.5 kg Intake: Oral 700 Output: Urine 900 Stool 5 Other: Voiding Method Toilet # Voids 3 2 - Labs CBC & Chem 7: 08/24/18 07:33 08/24/18 07:33 Labs: Abnormal Lab Results - Last 24 Hours (Table) 08/23/18 08/23/18 08/24/18 Range/Units 06:11 19:22 07:33 RBC 3.15 L (4.30-5.90) m/uL Hgb 10.2 L (13.0-17.5) gm/dL Hct 31.3 L (39.0-53.0) % Plt Count 486 H (150-450) k/uL PT 13.8 H (9.0-12.0) sec INR 1.4 H (<1.2) APTT 56.4 H (22.0-30.0) sec Chloride (98-107) mmol/L BUN (9-20) mg/dL Creatinine (0.66-1.25) mg/dL Glucose (74-99) mg/dL Calcium (8.4-10.2) mg/dL AST (17-59) U/L Alkaline Phosphatase (38-126) U/L Albumin (3.5-5.0) g/dL 08/24/18 Range/Units 07:33 RBC (4.30-5.90) m/uL Hgb (13.0-17.5) gm/dL Hct (39.0-53.0) % Plt Count (150-450) k/uL PT (9.0-12.0) sec INR (<1.2) APTT (22.0-30.0) sec Chloride 108 H (98-107) mmol/L BUN 3 L (9-20) mg/dL Creatinine 0.51 L (0.66-1.25) mg/dL Glucose 102 H (74-99) mg/dL Calcium 8.3 L (8.4-10.2) mg/dL AST 11 L (17-59) U/L Alkaline Phosphatase 315 H (38-126) U/L Albumin 2.5 L (3.5-5.0) g/dL Microbiology - Last 24 Hours (Table) 08/18/18 21:37 Blood Culture - Preliminary Blood No Growth after 120 hours <Scott Macias - Last Filed: 08/24/18 16:58> Subjective As above. Patient underwent biopsy earlier today. Overall feels well. Tolerating diet. Await biopsy results. Objective - Vital Signs Vital signs: Vital Signs Temp 98.5 F 08/24/18 03:24 Pulse 88 08/24/18 10:20 Resp 16 02/26/19 10:20 BP 136/86 08/24/18 10:20 Pulse Ox 95 08/24/18 10:20 Intake & Output 08/23/18 08/24/18 08/24/18 18:59 06:59 18:59 Intake Total 700 Output Total 905 Balance 700 -905 Weight 68.7 kg 68.5 kg Intake: Oral 700 Output: Urine 900 Stool 5 Other: Voiding Method Toilet # Voids 3 2 3 - Labs CBC & Chem 7: 08/24/18 07:33 08/24/18 07:33 Labs: Abnormal Lab Results - Last 24 Hours (Table) 08/23/18 08/24/18 08/24/18 Range/Units 19:22 07:33 07:33 RBC 3.15 L (4.30-5.90) m/uL Hgb 10.2 L (13.0-17.5) gm/dL Hct 31.3 L (39.0-53.0) % Plt Count 486 H (150-450) k/uL APTT 56.4 H (22.0-30.0) sec Chloride 108 H (98-107) mmol/L BUN 3 L (9-20) mg/dL Creatinine 0.51 L (0.66-1.25) mg/dL Glucose 102 H (74-99) mg/dL Calcium 8.3 L (8.4-10.2) mg/dL AST 11 L (17-59) U/L Alkaline Phosphatase 315 H (38-126) U/L Albumin 2.5 L (3.5-5.0) g/dL Microbiology - Last 24 Hours (Table) 08/24/18 09:45 Anaerobic Culture - Preliminary Abdomen 08/24/18 09:45 Wound Culture - Preliminary Abdomen 08/18/18 21:37 Blood Culture - Preliminary Blood No Growth after 120 hours Assessment and Plan (1) Diverticulitis Current Visit: Yes Status: Acute Code(s): K57.92 - DVTRCLI OF INTEST, PART UNSP, W/O PERF OR ABSCESS W/O BLEED SNOMED Code(s): 067596496
--- NOTE | 2018-08-24 13:16 | P.PN ---
Subjective 58-year-old admitted for diuretic lightest with microperforation patient is on antibiotics for that. Patient later found to have suspected hepatic vein thrombosis along with liver mass as per the MRI and ultrasound patient underwent the biopsy today. Had a lengthy discussion with the interventional radiologist. Patient will be continued on antibiotics patient will be resumed on heparin couple hours after the procedure will be switched to Eliquis tomorrow. Depending on infectious disease recommendations patient may need to go on IV antibiotics with a PICC line. Constitutional: Denied any fatigue denied any fever. Cardio vascular: denied any chest pain, palpitations Gastrointestinal denied any nausea vomiting Pulmonary: Denied any shortness of breath cough Neurologic denied any new focal deficits All inpatient medications were reviewed and appropriate changes in these medications as dictated in the interval history and assessment and plan. Objective - Vital Signs Vital signs: Vital Signs Temp 98.5 F 08/24/18 03:24 Pulse 88 08/24/18 10:20 Resp 16 08/24/18 10:20 BP 136/86 08/24/18 10:20 Pulse Ox 95 08/24/18 10:20 Intake & Output 08/23/18 08/24/18 08/24/18 18:59 06:59 18:59 Intake Total 700 Output Total 905 Balance 700 -905 Weight 68.7 kg 68.5 kg Intake: Oral 700 Output: Urine 900 Stool 5 Other: Voiding Method Toilet # Voids 3 2 - Exam PHYSICAL EXAMINATION: GENERAL: The patient is alert and oriented x3, not in any acute distress. Well developed, well nourished. HEENT: Pupils are round and equally reacting to light. EOMI. No scleral icterus. No conjunctival pallor. Normocephalic, atraumatic. No pharyngeal erythema. No thyromegaly. CARDIOVASCULAR: S1 and S2 present. No murmurs, rubs, or gallops. PULMONARY: Chest is clear to auscultation, no wheezing or crackles. ABDOMEN: Soft, nontender, nondistended, normoactive bowel sounds. No palpable organomegaly. MUSCULOSKELETAL: No joint swelling or deformity. EXTREMITIES: No cyanosis, clubbing, or pedal edema. NEUROLOGICAL: Gross neurological examination did not reveal any focal deficits. SKIN: No rashes. - Labs CBC & Chem 7: 08/24/18 07:33 08/24/18 07:33 Labs: Abnormal Lab Results - Last 24 Hours (Table) 08/23/18 08/24/18 08/24/18 Range/Units 19:22 07:33 07:33 RBC 3.15 L (4.30-5.90) m/uL Hgb 10.2 L (13.0-17.5) gm/dL Hct 31.3 L (39.0-53.0) % Plt Count 486 H (150-450) k/uL APTT 56.4 H (22.0-30.0) sec Chloride 108 H (98-107) mmol/L BUN 3 L (9-20) mg/dL Creatinine 0.51 L (0.66-1.25) mg/dL Glucose 102 H (74-99) mg/dL Calcium 8.3 L (8.4-10.2) mg/dL AST 11 L (17-59) U/L Alkaline Phosphatase 315 H (38-126) U/L Albumin 2.5 L (3.5-5.0) g/dL Microbiology - Last 24 Hours (Table) 08/18/18 21:37 Blood Culture - Preliminary Blood No Growth after 120 hours Assessment and Plan Plan: -Possible Hepatic vein thrombosis: continue with IV heparin. she'll be switched to Eliquis tomorrow since he had liver biopsy today -Diverticular disease with microperforation ration and possibility of liver abscess for which she patient is on naproxen and metronidazole which will be continued. -Possibly of hepatic mass with central necrosis or abscess awaiting IRC preliminary results -Hypertension
--- NOTE | 2018-08-24 16:08 | P.PN ---
Subjective Progress Note Date: 08/24/18 Principal diagnosis: portal vein thrombosis, liver mass Patient is seen today status post liver biopsy. He states he is comfortable, no significant or unusual pain to report, no nausea or bleeding Objective - Vital Signs Vital signs: Vital Signs Temp 98.5 F 08/24/18 03:24 Pulse 88 08/24/18 10:20 Resp 16 08/24/18 10:20 BP 136/86 08/24/18 10:20 Pulse Ox 95 08/24/18 10:20 Intake & Output 08/23/18 08/24/18 08/24/18 18:59 06:59 18:59 Intake Total 700 Output Total 905 Balance 700 -905 Weight 68.7 kg 68.5 kg Intake: Oral 700 Output: Urine 900 Stool 5 Other: Voiding Method Toilet # Voids 3 2 - Constitutional General appearance: Present: average body habitus, cooperative, no acute distress - EENT Eyes: Present: anicteric sclerae, EOMI ENT: Present: hearing grossly normal - Respiratory Details: respirations even and unlabored - Gastrointestinal General gastrointestinal: Present: normal bowel sounds, soft - Neurologic Neurologic: Present: CNII-XII intact - Musculoskeletal Musculoskeletal: Present: strength equal bilaterally - Psychiatric Psychiatric Comment(s): little drowsy from analgesics from procedure Psychiatric: Present: A&O x's 3, appropriate affect, intact judgment & insight - Labs CBC & Chem 7: 08/24/18 07:33 08/24/18 07:33 Labs: Abnormal Lab Results - Last 24 Hours (Table) 08/23/18 08/24/18 08/24/18 Range/Units 19:22 07:33 07:33 RBC 3.15 L (4.30-5.90) m/uL Hgb 10.2 L (13.0-17.5) gm/dL Hct 31.3 L (39.0-53.0) % Plt Count 486 H (150-450) k/uL APTT 56.4 H (22.0-30.0) sec Chloride 108 H (98-107) mmol/L BUN 3 L (9-20) mg/dL Creatinine 0.51 L (0.66-1.25) mg/dL Glucose 102 H (74-99) mg/dL Calcium 8.3 L (8.4-10.2) mg/dL AST 11 L (17-59) U/L Alkaline Phosphatase 315 H (38-126) U/L Albumin 2.5 L (3.5-5.0) g/dL Microbiology - Last 24 Hours (Table) 08/24/18 09:45 Anaerobic Culture - Preliminary Abdomen 08/24/18 09:45 Wound Culture - Preliminary Abdomen 08/18/18 21:37 Blood Culture - Preliminary Blood No Growth after 120 hours Assessment and Plan (1) Hepatic vein thrombosis Narrative/Plan: Case was discussed with radiologist. Ultrasound, CT and MRI reports/images were all reviewed. The suspicion is very high that the portal vein is thrombosed. Recommendation is to continue treatment dose anticoagulation. This was discussed with the Attending. Patient will be resumed on heparin drip post biopsy. If there are no signs or symptoms or suspicions for bleeding, patient will transition to oral anticoagulation in the morning. Current Visit: Yes Status: Acute Priority: High Code(s): I82.0 - BUDD- CHIARI SYNDROME SNOMED Code(s): 62856623 (2) Liver mass Narrative/Plan: Pending pathology results. Based on the findings patient may require follow-up with gastroenterology, infectious disease and/or oncology. Current Visit: Yes Status: Acute Priority: High Code(s): R16.0 - HEPATOMEGALY, NOT ELSEWHERE CLASSIFIED SNOMED Code(s): 325757249
[2018-08-24] MEDS: metroNIDAZOLE 500 MG TAB PO SCH ×2 (18:45→23:43)
[2018-08-24] MEDS: HEPARIN SOD,PORK IN 0.45% NACL 25,000 UNIT in 0.45% NACL 1 250ML.BAG IV SCH (18:46)
--- NOTE | 2018-08-24 23:23 | PN ---
PROGRESS NOTE DATE OF SERVICE: 08/24/2018. REASON FOR FOLLOWUP: Acute diverticulitis with perforation and possible liver abscess. INTERVAL HISTORY: The patient is afebrile. The patient is status post CT-guided aspiration with biopsy of the liver mass, which the patient tolerated . His denies having any chest pain or shortness of breath or cough. No abdominal pain and no diarrhea. PHYSICAL EXAMINATION: Blood pressure is 114/75 with a pulse of 91, temperature 98. He is 95% on room air. General description is a middle-aged male lying in bed in no distress. RESPIRATORY SYSTEM: Unlabored breathing. Clear to auscultation anteriorly. HEART: S1, S2. Regular rate and rhythm. ABDOMEN: Soft. No tenderness. LABS: Hemoglobin is 10.2 with a white count of 8.9, BUN of 3, creatinine 0.51. DIAGNOSTIC IMPRESSION AND PLAN: Patient with acute sigmoid diverticulitis with localized perforation concern for possible abscess, malignancy is not excluded, status post biopsy as well as aspiration. Cultures are currently pending. Patient is to continue with Unasyn. If abscess, he will need a PICC line for outpatient IV antibiotic therapy. Plan of care was discussed in detail with the patient's and the patient. Questions were answered. MMODL / IJN: [id number] /
[2018-08-24] MEDS: SODIUM CHLORIDE 0.9% 1,000 ML IV SCH (23:33)
[2018-08-24] MEDS: HYDROcodone/APAP 5-325MG 1 EACH TAB PO PRN (23:43)
[2018-08-25] MEDS: HEPARIN SOD,PORK IN 0.45% NACL 25,000 UNIT in 0.45% NACL 1 250ML.BAG IV SCH ×3 (01:28→23:19)
[2018-08-25] MEDS: AMPICILLIN-SULBACTAM 3 GM in SODIUM CHLORIDE 0.9% 100 ML IVPB SCH ×4 (02:58→19:36)
[2018-08-25] MEDS: metroNIDAZOLE 500 MG TAB PO SCH ×3 (08:15→23:16)
[2018-08-25] MEDS: PANTOPRAZOLE 40 MG TABLET PO SCH (08:16)
[2018-08-25] MEDS: amLODIPine 10 MG TAB PO SCH (08:16)
[2018-08-25] MEDS: LISINOPRIL 20 MG TAB PO SCH (08:16)
[2018-08-25 09:04] LABS: HCT 32.8 % (39.0-53.0); HGB 10.4 gm/dL (13.0-17.5); MCH 31.6 pg (25.0-35.0); MCHC 31.9 g/dL (31.0-37.0); MCV 99.2 fL (80.0-100.0); Mean Platelet Volume 6.3; Platelet Count 473 k/uL (150-450); RBC 3.31 m/uL (4.30-5.90); RDW 13.8 % (11.5-15.5); WBC 9.7 k/uL (3.8-10.6)
[2018-08-25 09:46] LABS: ALT 36 U/L (21-72); AST 13 U/L (17-59); Albumin 2.7 g/dL (3.5-5.0); Alkaline Phosphatase 345 U/L (38-126); Anion Gap 9 mmol/L; Blood Urea Nitrogen 4 mg/dL (9-20); Calcium 8.4 mg/dL (8.4-10.2); Carbon Dioxide 21 mmol/L (22-30); Chloride 109 mmol/L (98-107); Glucose 127 mg/dL (74-99); Potassium 3.5 mmol/L (3.5-5.1); Sodium 139 mmol/L (137-145); Total Bilirubin 0.4 mg/dL (0.2-1.3); Total Protein 6.6 g/dL (6.3-8.2)
--- NOTE | 2018-08-25 10:46 | P.PN ---
Subjective Progress Note Date: 08/25/18 Principal diagnosis: Elevated liver enzymes liver mass portal vein thrombosis Feels well. No complaints. Afebrile. Status post liver biopsy fluid aspiration culture results pending. Objective - Vital Signs Vital signs: Vital Signs Temp 97.9 F 08/25/18 05:31 Pulse 83 08/25/18 05:31 Resp 18 08/25/18 05:31 BP 125/78 08/25/18 05:31 Pulse Ox 97 08/25/18 05:31 Intake & Output 08/24/18 08/25/18 08/25/18 18:59 06:59 18:59 Intake Total 360 696.411 209.762 Balance 360 696.411 209.762 Intake: Intake, IV Titration 456.411 209.762 Amount Heparin Sod,Pork in 0.45% 176.411 209.762 NaCl 25,000 unit In 0.45 % NaCl 1 250ml.bag @ 18 UNITS/KG/HR 12.24 mls/hr IV .[id number] [facility] Rx#: [id number] Sodium Chloride 0.9% 1, 280 000 ml @ 20 mls/hr IV . Q24H [facility] Rx#:[id number] Oral 360 240 Other: Voiding Method Toilet # Voids 3 2 - Exam General appearance: The patient is alert, oriented, in no acute distress. HET: Head is normocephalic and atraumatic. Pupils are equal and reactive. Oropharynx is clear without lesions. Neck: Supple without lymphadenopathy. Trachea midline. Heart: S1 S2. Regular rate and rhythm. Lungs: No crackles or wheezes are heard. Abdomen: Soft, nontender, nondistended with bowel sounds. No peritoneal signs. No palpable organomegaly or masses. Extremities: Normal skin color and turgor. No cyanosis, rash, ulceration, clubbing, or edema. Radial and pedal pulses are 2/4 bilaterally. Neurological: No focal deficits. Strength and sensation are grossly intact. - Labs CBC & Chem 7: 08/25/18 08:21 08/25/18 08:21 Labs: Abnormal Lab Results - Last 24 Hours (Table) 08/24/18 08/25/18 08/25/18 Range/Units 18:42 08:21 08:21 RBC 3.31 L (4.30-5.90) m/uL Hgb 10.4 L (13.0-17.5) gm/dL Hct 32.8 L (39.0-53.0) % Plt Count 473 H (150-450) k/uL APTT 51.8 H (22.0-30.0) sec Chloride 109 H (98-107) mmol/L Carbon Dioxide 21 L (22-30) mmol/L BUN 4 L (9-20) mg/dL Creatinine 0.45 L (0.66-1.25) mg/dL Glucose 127 H (74-99) mg/dL AST 13 L (17-59) U/L Alkaline Phosphatase 345 H (38-126) U/L Albumin 2.7 L (3.5-5.0) g/dL 08/25/18 Range/Units 08:21 RBC (4.30-5.90) m/uL Hgb (13.0-17.5) gm/dL Hct (39.0-53.0) % Plt Count (150-450) k/uL APTT 89.3 H (22.0-30.0) sec Chloride (98-107) mmol/L Carbon Dioxide (22-30) mmol/L BUN (9-20) mg/dL Creatinine (0.66-1.25) mg/dL Glucose (74-99) mg/dL AST (17-59) U/L Alkaline Phosphatase (38-126) U/L Albumin (3.5-5.0) g/dL Microbiology - Last 24 Hours (Table) 08/24/18 09:45 Gram Stain - Preliminary Abdomen Wound Culture - Preliminary 08/18/18 21:37 Blood Culture - Final Blood No Growth after 144 hours 08/24/18 09:45 Anaerobic Culture - Preliminary Abdomen Assessment and Plan (1) Liver mass Current Visit: Yes Status: Acute Priority: High Code(s): R16.0 - HEPATOMEGALY, NOT ELSEWHERE CLASSIFIED SNOMED Code(s): 346209628 (2) Diverticulosis Current Visit: Yes Status: Acute Code(s): K57.90 - DVRTCLOS OF INTEST, PART UNSP, W/O PERF OR ABSCESS W/O BLEED SNOMED Code(s): 63336026 (3) Portal vein thrombosis Current Visit: Yes Status: Acute Code(s): I81 - PORTAL VEIN THROMBOSIS SNOMED Code(s): 90605475 (4) Elevated liver enzymes Current Visit: Yes Status: Acute Code(s): R74.8 - ABNORMAL LEVELS OF OTHER SERUM ENZYMES SNOMED Code(s): 487739831 Plan: Status post liver biopsy fluid aspiration cultures cytology pending. Continue with present medical therapy. From a GI standpoint no further workup. DC per medicine consult staff. LFTs stable. We'll follow on an as-needed basis. Assessment and plan a care discussed with Dr. Almanzar
--- NOTE | 2018-08-25 11:42 | P.PN ---
<Rukhsana Freeman A - Last Filed: 08/25/18 11:40> Subjective Progress Note Date: 08/25/18 CHIEF COMPLAINT: abdominal pain HISTORY OF PRESENT ILLNESS: Patient examined at the bedside. S/P liver biopsy yesterday. Patient denies abdominal pain. Denies nausea or vomiting. Tolerating PO intake. WBC 9.7. PHYSICAL EXAM: VITAL SIGNS: Currently stable. GENERAL: Well-developed in no acute distress. HEENT: No sclera icterus. Extraocular movements grossly intact. Moist buccal mucosa. Head is atraumatic, normocephalic. Hears conversational speech. No nasal drainage. NECK: Supple without lymphadenopathy. CHEST: Non-labored respirations and equal bilateral excursions. CARDIOVASCULAR: Regular rate with regular rhythm. Palpable 2+ radial pulses. ABDOMEN: Soft. Nondistended. Nontender. MUSCULOSKELETAL: No clubbing, cyanosis or edema. NEUROLOGIC: No focal or lateralizing signs. Cranial nerves II through XII grossly intact. PSYCH: Appropriate affect. Alert and oriented to person, place and time. SKIN: Well perfused. Good skin turgor. ASSESSMENT: 1. Diverticulitis 2. Liver Mass 3. Portal vein thrombosis PLAN: Continue antibiotics per ID. Patient is stable from a surgical perspective. Discharge per medicine. Nurse practitioner note has been reviewed by physician. Signing provider agrees with the documented findings, assessment, and plan of care. Objective - Vital Signs Vital signs: Vital Signs Temp 97.9 F 08/25/18 05:31 Pulse 83 08/25/18 05:31 Resp 18 08/25/18 05:31 BP 125/78 08/25/18 05:31 Pulse Ox 97 08/25/18 05:31 Intake & Output 08/24/18 08/25/18 08/25/18 18:59 06:59 18:59 Intake Total 360 696.411 250.000 Balance 360 696.411 250.000 Intake: Intake, IV Titration 456.411 250.000 Amount Heparin Sod,Pork in 0.45% 176.411 250.000 NaCl 25,000 unit In 0.45 % NaCl 1 250ml.bag @ 18 UNITS/KG/HR 12.24 mls/hr IV .[id number] [facility] Rx#: [id number] Sodium Chloride 0.9% 1, 280 000 ml @ 20 mls/hr IV . Q24H [facility] Rx#:[id number] Oral 360 240 Other: Voiding Method Toilet # Voids 3 2 - Labs CBC & Chem 7: 08/25/18 08:21 08/25/18 08:21 Labs: Abnormal Lab Results - Last 24 Hours (Table) 08/24/18 08/25/18 08/25/18 Range/Units 18:42 08:21 08:21 RBC 3.31 L (4.30-5.90) m/uL Hgb 10.4 L (13.0-17.5) gm/dL Hct 32.8 L (39.0-53.0) % Plt Count 473 H (150-450) k/uL APTT 51.8 H (22.0-30.0) sec Chloride 109 H (98-107) mmol/L Carbon Dioxide 21 L (22-30) mmol/L BUN 4 L (9-20) mg/dL Creatinine 0.45 L (0.66-1.25) mg/dL Glucose 127 H (74-99) mg/dL AST 13 L (17-59) U/L Alkaline Phosphatase 345 H (38-126) U/L Albumin 2.7 L (3.5-5.0) g/dL 08/25/18 Range/Units 08:21 RBC (4.30-5.90) m/uL Hgb (13.0-17.5) gm/dL Hct (39.0-53.0) % Plt Count (150-450) k/uL APTT 89.3 H (22.0-30.0) sec Chloride (98-107) mmol/L Carbon Dioxide (22-30) mmol/L BUN (9-20) mg/dL Creatinine (0.66-1.25) mg/dL Glucose (74-99) mg/dL AST (17-59) U/L Alkaline Phosphatase (38-126) U/L Albumin (3.5-5.0) g/dL Microbiology - Last 24 Hours (Table) 08/24/18 09:45 Gram Stain - Preliminary Abdomen Wound Culture - Preliminary 08/18/18 21:37 Blood Culture - Final Blood No Growth after 144 hours 08/24/18 09:45 Anaerobic Culture - Preliminary Abdomen <Scott Macias - Last Filed: 08/25/18 12:10> Subjective As above. Patient doing well today. Denies pain. Await biopsies results. Possible discharge today. Follow up outpatient. Objective - Vital Signs Vital signs: Vital Signs Temp 98.1 F 08/25/18 11:47 Pulse 91 08/25/18 11:47 Resp 16 08/25/18 11:47 BP 117/77 08/25/18 11:47 Pulse Ox 96 08/25/18 11:47 Intake & Output 08/24/18 08/25/18 08/25/18 18:59 06:59 18:59 Intake Total 360 696.411 250.000 Balance 360 696.411 250.000 Intake: Intake, IV Titration 456.411 250.000 Amount Heparin Sod,Pork in 0.45% 176.411 250.000 NaCl 25,000 unit In 0.45 % NaCl 1 250ml.bag @ 18 UNITS/KG/HR 12.24 mls/hr IV .[id number] [facility] Rx#: [id number] Sodium Chloride 0.9% 1, 280 000 ml @ 20 mls/hr IV . Q24H [facility] Rx#:[id number] Oral 360 240 Other: Voiding Method Toilet # Voids 3 2 - Labs CBC & Chem 7: 08/25/18 08:21 08/25/18 08:21 Labs: Abnormal Lab Results - Last 24 Hours (Table) 08/24/18 08/25/18 08/25/18 Range/Units 18:42 08:21 08:21 RBC 3.31 L (4.30-5.90) m/uL Hgb 10.4 L (13.0-17.5) gm/dL Hct 32.8 L (39.0-53.0) % Plt Count 473 H (150-450) k/uL APTT 51.8 H (22.0-30.0) sec Chloride 109 H (98-107) mmol/L Carbon Dioxide 21 L (22-30) mmol/L BUN 4 L (9-20) mg/dL Creatinine 0.45 L (0.66-1.25) mg/dL Glucose 127 H (74-99) mg/dL AST 13 L (17-59) U/L Alkaline Phosphatase 345 H (38-126) U/L Albumin 2.7 L (3.5-5.0) g/dL 08/25/18 Range/Units 08:21 RBC (4.30-5.90) m/uL Hgb (13.0-17.5) gm/dL Hct (39.0-53.0) % Plt Count (150-450) k/uL APTT 89.3 H (22.0-30.0) sec Chloride (98-107) mmol/L Carbon Dioxide (22-30) mmol/L BUN (9-20) mg/dL Creatinine (0.66-1.25) mg/dL Glucose (74-99) mg/dL AST (17-59) U/L Alkaline Phosphatase (38-126) U/L Albumin (3.5-5.0) g/dL Microbiology - Last 24 Hours (Table) 08/24/18 09:45 Gram Stain - Preliminary Abdomen Wound Culture - Preliminary 08/18/18 21:37 Blood Culture - Final Blood No Growth after 144 hours 08/24/18 09:45 Anaerobic Culture - Preliminary Abdomen Assessment and Plan (1) Diverticulitis Current Visit: Yes Status: Acute Code(s): K57.92 - DVTRCLI OF INTEST, PART UNSP, W/O PERF OR ABSCESS W/O BLEED SNOMED Code(s): 580809416
--- NOTE | 2018-08-25 12:45 | P.PN ---
Subjective Progress Note Date: 08/25/18 Principal diagnosis: portal vein thrombosis, liver mass In f/u pt has no c/o biopsy site pain, bleeding or bruising, N or constipation. He he is comfortable. Objective - Vital Signs Vital signs: Vital Signs Temp 98.1 F 08/25/18 11:47 Pulse 91 08/25/18 11:47 Resp 16 08/25/18 11:47 BP 117/77 08/25/18 11:47 Pulse Ox 96 08/25/18 11:47 Intake & Output 08/24/18 08/25/18 08/25/18 18:59 06:59 18:59 Intake Total 360 696.411 250.000 Balance 360 696.411 250.000 Intake: Intake, IV Titration 456.411 250.000 Amount Heparin Sod,Pork in 0.45% 176.411 250.000 NaCl 25,000 unit In 0.45 % NaCl 1 250ml.bag @ 18 UNITS/KG/HR 12.24 mls/hr IV .[id number] [facility] Rx#: [id number] Sodium Chloride 0.9% 1, 280 000 ml @ 20 mls/hr IV . Q24H [facility] Rx#:[id number] Oral 360 240 Other: Voiding Method Toilet # Voids 3 2 - Constitutional Constitutional Comment(s): Thin extremities with distended abd General appearance: Present: cooperative, no acute distress - EENT Eyes: Present: anicteric sclerae, EOMI ENT: Present: hearing grossly normal - Respiratory Details: respirations even and unlabored - Peripheral edema leg Peripheral Edema: bilateral: None - Gastrointestinal Gastrointestinal Comment(s): biopsy site still has bandaid covering, no bruising, redness, cyanosis or pain with palpation, there is ascites General gastrointestinal: Present: distended, normal bowel sounds, soft - Integumentary Integumentary: Present: normal - Neurologic Neurologic: Present: CNII-XII intact - Musculoskeletal Musculoskeletal: Present: strength equal bilaterally - Psychiatric Psychiatric: Present: A&O x's 3, appropriate affect, intact judgment & insight - Labs CBC & Chem 7: 08/25/18 08:21 08/25/18 08:21 Labs: Abnormal Lab Results - Last 24 Hours (Table) 08/24/18 08/25/18 08/25/18 Range/Units 18:42 08:21 08:21 RBC 3.31 L (4.30-5.90) m/uL Hgb 10.4 L (13.0-17.5) gm/dL Hct 32.8 L (39.0-53.0) % Plt Count 473 H (150-450) k/uL APTT 51.8 H (22.0-30.0) sec Chloride 109 H (98-107) mmol/L Carbon Dioxide 21 L (22-30) mmol/L BUN 4 L (9-20) mg/dL Creatinine 0.45 L (0.66-1.25) mg/dL Glucose 127 H (74-99) mg/dL AST 13 L (17-59) U/L Alkaline Phosphatase 345 H (38-126) U/L Albumin 2.7 L (3.5-5.0) g/dL 08/25/18 Range/Units 08:21 RBC (4.30-5.90) m/uL Hgb (13.0-17.5) gm/dL Hct (39.0-53.0) % Plt Count (150-450) k/uL APTT 89.3 H (22.0-30.0) sec Chloride (98-107) mmol/L Carbon Dioxide (22-30) mmol/L BUN (9-20) mg/dL Creatinine (0.66-1.25) mg/dL Glucose (74-99) mg/dL AST (17-59) U/L Alkaline Phosphatase (38-126) U/L Albumin (3.5-5.0) g/dL Microbiology - Last 24 Hours (Table) 08/24/18 09:45 Gram Stain - Preliminary Abdomen Wound Culture - Preliminary 08/18/18 21:37 Blood Culture - Final Blood No Growth after 144 hours 08/24/18 09:45 Anaerobic Culture - Preliminary Abdomen Assessment and Plan (1) Hepatic vein thrombosis Narrative/Plan: Case was discussed with radiologist. Ultrasound, CT and MRI reports/images were all reviewed. The suspicion is very high that the portal vein is thrombosed. Recommendation is to continue treatment dose anticoagulation. This was discussed with the Attending. Patient will be resumed on heparin drip post biopsy. If there are no signs or symptoms or suspicions for bleeding, patient will transition to oral anticoagulation once all invasive procedures are completed-possible PICC line insertion. Current Visit: Yes Status: Acute Priority: High Code(s): I82.0 - BUDD- CHIARI SYNDROME SNOMED Code(s): 76886631 (2) Liver mass Narrative/Plan: Pending pathology results. Based on the findings patient may require follow-up with gastroenterology, infectious disease and/or oncology. Will follow up for results. This can be done outpatient from a Hem/Onc standpoint Current Visit: Yes Status: Acute Priority: High Code(s): R16.0 - HEPATOMEGALY, NOT ELSEWHERE CLASSIFIED SNOMED Code(s): 168552841
[2018-08-25] MEDS: SODIUM CHLORIDE 0.9% 1,000 ML IV SCH (18:02)
[2018-08-25] MEDS: HYDROcodone/APAP 5-325MG 1 EACH TAB PO PRN (18:06)
--- NOTE | 2018-08-25 23:27 | PN ---
PROGRESS NOTE DATE OF SERVICE: 08/25/2018 REASON FOR FOLLOWUP: Acute sigmoid diverticulitis with underlying perforation and possible liver abscess. INTERVAL HISTORY: The patient is currently afebrile. The patient is breathing comfortably. The patient denies having any chest pain, shortness of breath or cough. No abdominal pain. No nausea, vomiting or any diarrhea. PHYSICAL EXAMINATION: Blood pressure 159/95 with a pulse of 101, temperature 97.9. He is 96% on room air. General description is a middle-aged male up in the room in no distress. RESPIRATORY SYSTEM: Unlabored breathing. Clear to auscultation anteriorly. HEART: S1, S2. Regular rate and rhythm. ABDOMEN: Soft. No tenderness. LABS: Hemoglobin 10.4 with white count 9.7, BUN 4, creatinine 0.45. DIAGNOSTIC IMPRESSION AND PLAN: Patient with acute sigmoid diverticulitis with microperforation, localized sepsis and also with evidence of a possible liver abscess versus malignancy. Patient is currently on Unasyn and seems to be doing well. Will be transitioned to Rocephin 2 grams daily, and oral Flagyl was given while monitoring his clinical course closely. Continue with supportive care. MMODL / IJN: [id number] /
[2018-08-26] MEDS: AMPICILLIN-SULBACTAM 3 GM in SODIUM CHLORIDE 0.9% 100 ML IVPB SCH ×2 (01:37→07:39)
[2018-08-26] MEDS: HYDROcodone/APAP 5-325MG 1 EACH TAB PO PRN (07:38)
[2018-08-26] MEDS: metroNIDAZOLE 500 MG TAB PO SCH ×2 (07:39→16:21)
[2018-08-26] MEDS: PANTOPRAZOLE 40 MG TABLET PO SCH (07:39)
[2018-08-26 11:58] VITALS: BMI 24.3
[2018-08-26 12:21] VITALS: BP 125/80; RESP 16; TEMP 98
--- NOTE | 2018-08-26 13:02 | P.PN ---
Subjective Progress Note Date: 08/26/18 Principal diagnosis: Diverticulitis Patient doing well today. PICC line is scheduled this afternoon. Sedation scheduled for discharge following that. Patient is happy to go home at this time. Objective - Vital Signs Vital signs: Vital Signs Temp 98 F 08/26/18 11:41 Pulse 91 08/26/18 11:41 Resp 16 08/26/18 11:41 BP 125/80 08/26/18 11:41 Pulse Ox 95 08/26/18 11:41 Intake & Output 08/25/18 08/26/18 08/26/18 18:59 06:59 18:59 Intake Total 3444.862 345.138 191.8 Output Total 303 Balance 3141.862 345.138 191.8 Weight 68.5 kg Intake: Intake, IV Titration 804.862 345.138 191.8 Amount Ampicillin-Sulbactam 3 gm 200 150 In Sodium Chloride 0.9% 100 ml @ 200 mls/hr IVPB Q6H [facility] Rx#:[id number] Heparin Sod,Pork in 0.45% 364.862 135.138 191.8 NaCl 25,000 unit In 0.45 % NaCl 1 250ml.bag @ 18 UNITS/KG/HR 12.24 mls/hr IV .[id number] [facility] Rx#: [id number] Sodium Chloride 0.9% 1, 240 60 000 ml @ 20 mls/hr IV . Q24H [facility] Rx#:[id number] Oral 2640 Output: Urine 300 Stool 3 Other: Voiding Method Toilet Toilet # Voids 4 - Exam Abdomen: Soft, nondistended, nontender - Labs CBC & Chem 7: 08/25/18 08:21 08/25/18 08:21 Labs: Abnormal Lab Results - Last 24 Hours (Table) 08/25/18 08/25/18 08/26/18 Range/Units 15:33 23:05 06:51 APTT 92.7 H 52.7 H 77.8 H (22.0-30.0) sec Microbiology - Last 24 Hours (Table) 08/24/18 09:45 Anaerobic Culture - Preliminary Abdomen 08/24/18 09:45 Gram Stain - Final Abdomen Wound Culture - Final Assessment and Plan (1) Diverticulitis Narrative/Plan: Agree with plans for discharge. Follow-up as outpatient. Await final pathology. Current Visit: Yes Status: Acute Code(s): K57.92 - DVTRCLI OF INTEST, PART UNSP, W/O PERF OR ABSCESS W/O BLEED SNOMED Code(s): 670597002
[2018-08-26] MEDS ORDERED: LIDOCAINE 1% INJ 10MG/ML (20 ML MDV) SQ ONE (15:01)
--- NOTE | 2018-08-26 15:10 | PN ---
PROGRESS NOTE DATE OF SERVICE: 08/26/2018 REASON FOR FOLLOWUP: Acute NC, diverticulitis with perforation, and possible liver abscess. INTERVAL HISTORY: The patient is currently afebrile. The patient is breathing comfortably. Denies having any chest pain. No shortness of breath or cough. No abdominal pain, no diarrhea. PHYSICAL EXAMINATION: Blood pressure is 125/80 with a pulse of 91, temperature 98, he is 95% on room air. General description is a middle-aged male, lying in bed in no distress. RESPIRATORY SYSTEM: Unlabored breathing, clear to auscultation anteriorly. HEART: S1, S2. Regular rate and rhythm. ABDOMEN: Soft, no tenderness. LABS: Hemoglobin 10.4, white count of 9.5, BUN of 4, creatinine 0.45. Cultures have been negative so far. DIAGNOSTIC IMPRESSION AND PLAN: Patient with acute sigmoid diverticulitis with contained perforation and abscess, also with possible liver abscess, status post aspirate. The patient did overall improvement on Unasyn. Cultures have been negative, more likely a sensitive pathogen such as an E coli. Antibiotic will be transitioned to Rocephin 2 g daily along with oral Flagyl for 2 weeks with close outpatient followup. Once antibiotic arranged, she should be able to go home from ID standpoint. Prescription was left with the . Continue supportive care. MMODL / IJN: [id number] /
--- NOTE | 2018-08-26 15:28 | IR ---
PICC LINE PLACEMENT: HISTORY: Infection requiring long-term antibiotic therapy PROCEDURE: Ultrasound and fluoroscopic guidance of PICC line placement. COMPLICATIONS: None ANESTHESIA: 1. 1% Lidocaine locally. FINDINGS/TECHNIQUE: The procedure was explained to the patient. The risks, complications, benefits and alternatives were discussed and any questions were answered. Informed consent was obtained. The patient was placed supine on the fluoroscopic table and prepped and draped in the usual sterile fash ion. Utilizing a 21 gauge needle and sonographic and fluoroscopic guidance, access in the left basi lic vein was achieved and there is placement of a 0.018 guidewire. The vein is patent. A 4-F sheath was placed over the guidewire. The guidewire and dilator were removed and a 4-F. PICC line was plac ed through the sheath with the tip at the level of the SVC. The sheath was removed, the catheter was flushed and sutured into position. The patient was stable throughout the procedure and remained sta ble upon discharge from the Department of Radiology. The vein puncture was patent under ultrasound. A aggarwal scale image was obtained to document patency of the vein punctured. All elements of the maximal barrier technique were utilized. FLUOROSCOPY TIME: 0.4 minutes and one image submitted IMPRESSION: Successful PICC line placement under ultrasound and fluoroscopic guidance.
[2018-08-26 15:36] VITALS: PULSE 79
[2018-08-26] MEDS: SODIUM CHLORIDE 0.9% 1,000 ML IV SCH (16:24)
[2018-08-26] MEDS ORDERED: APIXABAN 5 MG TAB PO SCH (17:00)
--- NOTE | 2018-08-26 18:55 | P.PN ---
Subjective Progress Note Date: 08/25/18 Interval history:58-year-old admitted for diuretic lightest with microperforation patient is on antibiotics for that. Patient later found to have suspected hepatic vein thrombosis along with liver mass as per the MRI and ultrasound patient underwent the biopsy today. Had a lengthy discussion with the interventional radiologist. Patient will be continued on antibiotics patient will be resumed on heparin couple hours after the procedure will be switched to Eliquis tomorrow. Depending on infectious disease recommendations patient may need to go on IV antibiotics with a PICC line. 08/25/2018 maintained on heparin drip, awaiting PICC line placement. Liver Biopsy results pending. Reports tenderness at biopsy site, otherwise comfortable. Good diet intake, with no nausea or vomiting. Afebrile. Denies chest pain, palpitations or shortness of breath. Constitutional: Denied any fatigue denied any fever. Cardio vascular: denied any chest pain, palpitations Gastrointestinal denied any nausea vomiting Pulmonary: Denied any shortness of breath cough Neurologic denied any new focal deficits All inpatient medications were reviewed and appropriate changes in these medications as dictated in the interval history and assessment and plan. Objective - Vital Signs Vital signs: Vital Signs Temp 97.6 F 08/25/18 20:08 Pulse 101 H 08/25/18 20:08 Resp 20 08/25/18 20:08 BP 159/95 08/25/18 20:08 Pulse Ox 96 08/25/18 18:27 Intake & Output 08/25/18 08/25/18 08/26/18 06:59 18:59 06:59 Intake Total 211.424 7405.862 245.138 Output Total 303 Balance 830.023 1745.862 245.138 Intake: Intake, IV Titration 456.411 804.862 245.138 Amount Ampicillin-Sulbactam 3 gm 200 50 In Sodium Chloride 0.9% 100 ml @ 200 mls/hr IVPB Q6H [facility] Rx#:[id number] Heparin Sod,Pork in 0.45% 176.411 364.862 135.138 NaCl 25,000 unit In 0.45 % NaCl 1 250ml.bag @ 18 UNITS/KG/HR 12.24 mls/hr IV .[id number] [facility] Rx#: [id number] Sodium Chloride 0.9% 1, 280 240 60 000 ml @ 20 mls/hr IV . Q24H [facility] Rx#:[id number] Oral 240 2640 Output: Urine 300 Stool 3 Other: Voiding Method Toilet Toilet Toilet # Voids 2 4 - Exam GENERAL: The patient is sitting up at bedside, eating lunch ,alert and oriented x3, no acute distress. HEENT: Pupils are round and equally reacting to light. EOMI. No scleral icterus. No conjunctival pallor. Normocephalic, atraumatic. CARDIOVASCULAR: S1 and S2 present. No murmurs, rubs, or gallops. PULMONARY: Unlabored, Chest is clear to auscultation, no wheezing or crackles. No rhonchi ABDOMEN: Soft, nontender, nondistended, normoactive bowel sounds. No palpable organomegaly. MUSCULOSKELETAL: No joint swelling or deformity. EXTREMITIES: No cyanosis, clubbing, or pedal edema. NEUROLOGICAL: Gross neurological examination did not reveal any focal deficits. SKIN: No rashes. - Labs CBC & Chem 7: 08/25/18 08:21 08/25/18 08:21 Labs: Abnormal Lab Results - Last 24 Hours (Table) 08/25/18 08/25/18 08/25/18 Range/Units 08:21 08:21 08:21 RBC 3.31 L (4.30-5.90) m/uL Hgb 10.4 L (13.0-17.5) gm/dL Hct 32.8 L (39.0-53.0) % Plt Count 473 H (150-450) k/uL APTT 89.3 H (22.0-30.0) sec Chloride 109 H (98-107) mmol/L Carbon Dioxide 21 L (22-30) mmol/L BUN 4 L (9-20) mg/dL Creatinine 0.45 L (0.66-1.25) mg/dL Glucose 127 H (74-99) mg/dL AST 13 L (17-59) U/L Alkaline Phosphatase 345 H (38-126) U/L Albumin 2.7 L (3.5-5.0) g/dL 08/25/18 08/25/18 Range/Units 15:33 23:05 RBC (4.30-5.90) m/uL Hgb (13.0-17.5) gm/dL Hct (39.0-53.0) % Plt Count (150-450) k/uL APTT 92.7 H 52.7 H (22.0-30.0) sec Chloride (98-107) mmol/L Carbon Dioxide (22-30) mmol/L BUN (9-20) mg/dL Creatinine (0.66-1.25) mg/dL Glucose (74-99) mg/dL AST (17-59) U/L Alkaline Phosphatase (38-126) U/L Albumin (3.5-5.0) g/dL Microbiology - Last 24 Hours (Table) 08/24/18 09:45 Gram Stain - Preliminary Abdomen Wound Culture - Preliminary 08/18/18 21:37 Blood Culture - Final Blood No Growth after 144 hours Assessment and Plan Assessment: -Hepatic vein thrombosis -Diverticular disease with microperforation, possibility of liver abscess -Possibility of hepatic mass with central necrosis or abscess awaiting preliminary pathology results -Hypertension Plan: Continue on current medication regime , Flagyl, naproxen, monitoring and symptomatic treatment. Maintain IV antibiotics as per infectious disease. Continue on heparin drip, pending PICC line placement. After PICC line placement converted over to oral anticoagulation with Eliquis. Discharge planning in progress for tomorrow. Prognosis guarded given multiple complex medical issues. The impression and plan of care has been dictated as directed. : I performed a history and examination of this patient, discussed the same with the dictator. I agree with the dictator's note ,documented as a scribe. Any additional findings or plans will be noted.
--- NOTE | 2018-08-26 19:09 | P.DS ---
Providers Date of admission: 08/18/18 13:41 Expected date of discharge: 08/26/18 Attending physician: Nannette Baca Consults: 08/18/18 13:41 Consult Physician Routine Consulting Provider: Palomo Prescott Consult Reason/Comments: hepatic vein thrombosis Do you want consulting provider notified?: Yes Consult Physician Routine Consulting Provider: Joseph Segal Consult Reason/Comments: cancer new diagnosis Do you want consulting provider notified?: Yes 08/19/18 03:21 Consult Physician Routine Consulting Provider: Scott Macias Consult Reason/Comments: diverticulitis of the colon with perforation, abcess /liver mass, Do you want consulting provider notified?: Yes, Notify in am 08/20/18 11:21 Consult Physician Routine Consulting Provider: Emma Hudson Consult Reason/Comments: hepatic abscess?? Do you want consulting provider notified?: Yes Primary care physician: [facility] Course: Final Diagnoses: -Hepatic vein thrombosis -Diverticular disease with microperforation, possibility of liver abscess -Possibile hepatic mass with central necrosis or abscess,Pathology suggestive of hepatocellular CA , but staining inconclusive, biopsies being sent out to [facility] Hospital course:58-year-old admitted for diverticulitis with microperforation patient is on antibiotics for that. Patient later found to have suspected hepatic vein thrombosis along with liver mass as per the MRI and ultrasound. patient underwent the biopsy.Had a lengthy discussion with the interventional radiologist. Patient will be continued on antibiotics patient will be resumed on heparin couple hours after the procedure will be switched to Eliquis tomorrow. Depending on infectious disease recommendations patient may need to go on IV antibiotics with a PICC line. PICC line placed .Pathology suggestive of hepatocellular CA , but staining inconclusive, biopsies being sent out to [facility] AFP ordered. Discussed with patient and significant other. Cleared by all consults for discharge. Patient is being discharged home in a stable condition with guarded prognosis. - Exam GENERAL: alert and oriented x3, no acute distress. CARDIOVASCULAR: S1 and S2 present. No murmurs, rubs, or gallops. PULMONARY: Unlabored, Chest is clear to auscultation, no wheezing or crackles. No rhonchi ABDOMEN: Soft, nontender, nondistended, normoactive bowel sounds. No palpable organomegaly. NEUROLOGICAL: Gross neurological examination did not reveal any focal deficits. The impression and plan of care has been dictated as directed. : I performed a history and examination of this patient, discussed the same with the dictator. I agree with the dictator's note ,documented as a scribe. Any additional findings or plans will be noted. Time taken: 35 minutes Patient Condition at Discharge: Stable Plan - Discharge Summary Discharge Rx Participant: No New Discharge Prescriptions: New Pantoprazole [Protonix] 40 mg PO DAILY #30 tablet. HYDROcodone/APAP 5-325MG [Rice 5-325] 1 each PO Q6HR PRN #12 tab PRN Reason: Pain cefTRIAXone [Rocephin] 2,000 mg IVP Q24HR #14 vial metroNIDAZOLE [Flagyl] 500 mg PO TID #42 tab Apixaban [Eliquis] 10 mg PO BID #56 tab Continue amLODIPine BESYLATE/BENAZEPRIL [Lotrel 10-20 MG] 1 cap PO Q48H Discharge Medication List amLODIPine BESYLATE/BENAZEPRIL [Lotrel 10-20 MG] 1 cap PO Q48H 08/18/18 [History ] Apixaban [Eliquis] 10 mg PO BID #56 tab 08/26/18 [Rx] HYDROcodone/APAP 5-325MG [Rice 5-325] 1 each PO Q6HR PRN #12 tab 08/26/18 [Rx] Pantoprazole [Protonix] 40 mg PO DAILY #30 tablet. 08/26/18 [Rx] cefTRIAXone [Rocephin] 2,000 mg IVP Q24HR #14 vial 08/26/18 [Rx] metroNIDAZOLE [Flagyl] 500 mg PO TID #42 tab 08/26/18 [Rx] Follow up Appointment(s)/Referral(s): Scott Macias MD [Medical Doctor] - 09/09/18 9:40 am Joseph Segal MD [STAFF PHYSICIAN] - 1 Week (Pending biopsy results. Will contact pt once resulted) Mary Alvarado DO [Primary Care Provider] - 09/01/18 2:00 pm () [facility], [NON-STAFF] - 1 Week Emma Hudson MD [STAFF PHYSICIAN] - 1 Week Ambulatory/Diagnostic Orders: Complete Blood Count w/diff [LAB.AMB] Time Frame: 3 Days, Location: None Selected Patient Instructions/Handouts: Hydrocodone/Acetaminophen (By mouth), Pantoprazole (By mouth), Diverticulitis (DC), Deep Vein Thrombosis (DC) Activity/Diet/Wound Care/Special Instructions: Anticoagulation as per hematology: Eliquis 10 mg by mouth 1 twice a day 7 days , then 5 mg twice a day. Option care for antibiotics - Discharge Disposition: HOME WITH HOME HEALTH SERVICES
--- NOTE | 2018-08-26 19:21 | P.PN ---
Subjective Progress Note Date: 08/26/18 Principal diagnosis: portal vein thrombosis, liver mass In follow-up today patient is pending a PICC line insertion to continue IV antibiotics outpatient. He continues on a heparin drip for portal vein thrombosis, to transition to oral anticoagulation post procedure, no complaints of bleeding. Patient has no fevers, he is tolerating a diet, denies any bowel or bladder changes, able to ambulate independently, anxious to go home after procedure. Objective - Vital Signs Vital signs: Vital Signs Temp 98 F 08/26/18 11:41 Pulse 79 08/26/18 16:00 Resp 16 08/26/18 16:00 BP 125/80 08/26/18 11:41 Pulse Ox 95 08/26/18 11:41 Intake & Output 08/26/18 08/26/18 08/27/18 06:59 18:59 06:59 Intake Total 211.134 4887.8 Output Total 303 Balance 961.567 3874.8 Weight 68.5 kg Intake: Intake, IV Titration 345.138 531.8 Amount Ampicillin-Sulbactam 3 gm 150 100 In Sodium Chloride 0.9% 100 ml @ 200 mls/hr IVPB Q6H KATE Rx#:[id number] Heparin Sod,Pork in 0.45% 135.138 191.8 NaCl 25,000 unit In 0.45 % NaCl 1 250ml.bag @ 18 UNITS/KG/HR 12.24 mls/hr IV .[id number] KATE Rx#: [id number] Sodium Chloride 0.9% 1, 60 240 000 ml @ 20 mls/hr IV . Q24H KATE Rx#:[id number] Oral 1920 Output: Urine 300 Stool 3 Other: Voiding Method Toilet Toilet # Voids 3 - Constitutional General appearance: Present: average body habitus, cooperative, no acute distress - EENT Eyes: Present: anicteric sclerae, EOMI ENT: Present: hearing grossly normal - Respiratory Details: respirations even and unlabored - Peripheral edema leg Peripheral Edema: bilateral: None - Gastrointestinal General gastrointestinal: Present: distended - Neurologic Neurologic: Present: CNII-XII intact - Musculoskeletal Musculoskeletal: Present: strength equal bilaterally - Psychiatric Psychiatric: Present: A&O x's 3, appropriate affect, intact judgment & insight - Labs CBC & Chem 7: 08/25/18 08:21 02/27/19 08:21 Labs: Abnormal Lab Results - Last 24 Hours (Table) 08/25/18 08/26/18 Range/Units 23:05 06:51 APTT 52.7 H 77.8 H (22.0-30.0) sec Microbiology - Last 24 Hours (Table) 08/24/18 09:45 Anaerobic Culture - Preliminary Abdomen 08/24/18 09:45 Gram Stain - Final Abdomen Wound Culture - Final Assessment and Plan (1) Hepatic vein thrombosis Narrative/Plan: 08/24/18-Case was discussed with radiologist. Ultrasound, CT and MRI reports/ images were all reviewed. The suspicion is very high that the portal vein is thrombosed. Recommendation is to continue treatment dose anticoagulation. This was discussed with the Attending. 08/26/18-post PICC line insertion transition to oral anticoagulation. Oral anticoagulation prescription at patient pharmacy, confirmed Status: Acute Priority: High Code(s): I82.0 - BUDD-CHIARI SYNDROME SNOMED Code(s): 37238180 (2) Liver mass Status: Acute Priority: High Code(s): R16.0 - HEPATOMEGALY, NOT ELSEWHERE CLASSIFIED SNOMED Code(s): 892319233 Plan: Pending patient biopsy results. Patient was provided with contact information for our office. Recommended the patient that if he has not heard anything in the next 7-10 days that he needs to contact either Oncology, Gastroenterology or Infectious Disease for results and recommendations as to who he should follow up with based on the biopsy findings. He and his verbalized understanding. They have written record and documentation of discussions.
[2018-09-02] MEDS ORDERED: APIXABAN 5 MG TAB PO SCH (09:00)
== END 2018-08-26 17:45 | disposition home health service (06) | DRG 441 ==
LOC: EC 09:32 → 3SCARD 13:41 → 3NMEDONC 08-24 22:42
PROVIDERS: ADMIT Internal Medicine; ATTEND Internal Medicine
PROC: 0FB13ZX Excision of Right Lobe Liver, Percutaneous Approach, Diagnostic (ICD-10-PCS; 2018-08-24)
PROC: 02HV33Z Insertion of Infusion Device into Superior Vena Cava, Percutaneous Approach (ICD-10-PCS; principal; 2018-08-26 10:55)
DX: K75.0 Abscess of liver (principal); I81 Portal vein thrombosis; K57.20 Diverticulitis of large intestine with perforation and abscess without bleeding; D68.9 Coagulation defect, unspecified; I10 Essential (primary) hypertension; E87.6 Hypokalemia; E78.00 Pure hypercholesterolemia, unspecified; D64.9 Anemia, unspecified; E78.5 Hyperlipidemia, unspecified; E27.8 Other specified disorders of adrenal gland; F17.200 Nicotine dependence, unspecified, uncomplicated; Z96.1 Presence of intraocular lens; Z79.899 Other long term (current) drug therapy; Z88.8 Allergy status to other drugs, medicaments and biological substances; Z82.49 Family history of ischemic heart disease and other diseases of the circulatory system; Z87.01 Personal history of pneumonia (recurrent); Z98.42 Cataract extraction status, left eye; Z98.41 Cataract extraction status, right eye; Z86.010 Personal history of colon polyps; Z79.2 Long term (current) use of antibiotics
CPT/HCPCS: 10005; 36415; 36573; 47000; 71045; 71260; 74018; 74177; 74183; 76700; 76942; 80053; 81003; 82105; 82378; 82550; 82553; 83690; 83735; 84132; 84484; 85025; 85027; 85610; 85652; 85730; 86140; 86301; 87040; 87070; 87075; 87205; 88173; 88305; 88307; 88313; 88341; 88342; 96361; 96365; 96366; 96368; 96375; 96376; 99285

== ENCOUNTER → 2018-09-10 | Outpatient (CLI) | payer OTHER ==
--- NOTE | 2018-09-10 13:19 | CT ---
EXAMINATION TYPE: CT abdomen pelvis w con DATE OF EXAM: 09/10/2018 COMPARISON: CT abdomen dated 10/14/2016 and MRI of the liver dated 08/20/2018. HISTORY: Follow up for diverticulitis abscess CT DLP: 1044 mGycm Automated exposure control for dose reduction was used. TECHNIQUE: Helical acquisition of images was performed from the lung bases through the pelvis. CONTRAST: Performed with Oral Contrast and with IV Contrast, patient injected with 100 mL of Isovue 300. FINDINGS: LUNG BASES: No significant abnormality is appreciated. LIVER/GB: Although there is decrease in size of the right hepatic centrally necrotic mass previously measuring approximately 4.5 cm and now measuring approximately 2.9 x 2.1 cm on series 3 image 18 ther e are 2 new hypoattenuated hepatic masses seen within the right hepatic lobe on image 11 measuring 3. 5 cm and on image 14 measuring 3.0 cm. Altered perfusion of the liver is also seen with geographic ar eas of hypoattenuation that are wedge-shaped. There is collateralization of the fely hepatis seconda ry to complete thrombosis of the left portal vein and its branches. Although there is improvement in degree of intrahepatic biliary ductal dilatation there remains some left hepatic biliary ductal dilat ation and central biliary ductal dilatation. Scattered benign cysts measure up to 2.5 cm. PANCREAS: No significant abnormality is seen. SPLEEN: No significant abnormality is seen. ADRENALS: There is thickening of the right adrenal gland although it maintains a normal adreniform sh ape and there is a 1.5 cm adrenal nodule from the medial limb of the left adrenal gland with nodulari ty of the lateral limb. This is indeterminate and does not meet criteria for a benign adenoma. KIDNEYS: The kidneys enhance and excrete symmetrically other than a too small to accurately character ize left lower pole subcentimeter renal lesion and 2 mm right lower nonobstructing calculus. FREE AIR: No free air is visualized. ADENOPATHY: Prominent fely hepatis lymph nodes measure up to 7 mm in short axis portacaval lymph no de measuring 1.0 cm in short axis. REPRODUCTIVE ORGANS: Prostate gland is diffusely heterogenous with central zone calcifications. URINARY BLADDER: No significant abnormality is seen. OSSEOUS STRUCTURES: No acute osseous abnormality BOWEL: There is a possible submucosal abscess with lower attenuation than the remainder of the colon measuring approximately 3 cm on series 3 image 38 however oral contrast has not extended to this level and therefore this is not a definitive finding. Foci of loculated free air are seen anterior to this with a more well-defined abscess measuring 2.2 x 2.1 cm and surrounding phlegmonous change. Extensive thickening of the descending colon and sigmoid colon with numerous colonic diverticula remain. IMPRESSION: 1. EXTENSIVE PORTAL VENOUS THROMBOSIS WITH COLLATERALIZATION IN THE FELY HEPATIS AND DIFFUSE ABNORMA L PERFUSION OF THE HEPATIC PARENCHYMA. THERE IS DECREASE IN SIZE OF THE CENTRALLY NECROTIC PREVIOUSLY ASPIRATED MASS HOWEVER 2 NEW MASSES ARE SEEN WITHIN THE LIVER THAT REMAIN SUSPICIOUS. THERE IS PERSI STENT INTRAHEPATIC BILIARY DUCTAL DILATATION. UNDERLYING NEOPLASM IS SUSPECTED WITH CONSIDERATION FOR CHOLANGIOCARCINOMA OR HEPATOCELLULAR CARCINOMA AND PORTAL VENOUS TUMOR THROMBUS. 2. SIMILAR SIZE OF THE MESENTERIC ABSCESS FROM PERFORATED DIVERTICULITIS AND POSSIBLE SECOND DESCENDI NG COLONIC SUBMUCOSAL ABSCESS. EXTENT OF THE DIFFUSE BOWEL WALL THICKENING AND PHLEGMONOUS CHANGE OF THE DESCENDING AND SIGMOID COLON ARE UNCHANGED FROM THE PRIOR.
== END | disposition home or self-care (01) ==
LOC: RADCTMAIN 10:42
PROVIDERS: ATTEND Internal Medicine Infectious Disease
DX: K57.20 Diverticulitis of large intestine with perforation and abscess without bleeding (principal); I81 Portal vein thrombosis; R16.0 Hepatomegaly, not elsewhere classified
CPT/HCPCS: 74177; Q9967

== ENCOUNTER → 2018-10-27 | Outpatient (CLI) | payer OTHER ==
--- NOTE | 2018-10-27 11:39 | CT ---
EXAMINATION TYPE: CT abdomen pelvis w con DATE OF EXAM: 10/27/2018 COMPARISON: CT abdomen and pelvis September 10, 2018. HISTORY: Liver abscess, sigmoid abscess CT DLP: 808.4 mGycm, Automated Exposure Control for Dose Reduction was Utilized. CONTRAST: CT scan of the abdomen and pelvis is performed with oral and with IV Contrast, patient injected with 100 mL of Isovue 300. FINDINGS: LUNG BASES: Mild bibasilar linear scarring and/or atelectasis. LIVER/GB: Stable subcentimeter low dense lesion anterior right hepatic lobe axial image 28 favoring simple thin-walled cyst. A 1.5 cm low dense lesion anterior left hepatic dome favors thin-walled cys t is diminished in size from prior. Marked interval improvement in heterogeneous hypodense intrahepat ic masses with surrounding hyperdensity consistent with resolving abscesses. Stable additional puncta te hypodense lesion right hepatic lobe posteriorly axial image 28 series 5. Portal vein is patent but small caliber coronal image 41. There is prominent tortuous adjacent vessels consistent with caverno us transformation in the katina hepatis noted. Draining hepatic veins are patent. PANCREAS: Mild fullness distal body without obvious mass redemonstrated. SPLEEN: No significant abnormality is seen. ADRENALS: Stable low dense thickening left greater than right bilateral adrenal glands favoring benig n hyperplasia. KIDNEYS: No significant abnormality is seen. BOWEL: Oral contrast only reaches level of the right colon making evaluation of distal bowel slightly suboptimal. There is no suspicious small or large bowel dilatation. There is moderate fecal prominen ce throughout the colon. There are diverticula in the sigmoid colon redemonstrated. Some mild free fl uid left infracolic gutter remains present improved from prior. Tiny residual soft tissue nodules lef t mid abdomen axial image 39 are improved from prior consistent with resolving abscesses. Underlying masses are not excluded. PROSTATE/SEMINAL VESICLES: Prostate gland is mildly enlarged bulging on bladder base suggestive of un derlying BPH. Correlate clinically. LYMPH NODES: No greater than 1cm abdominal or pelvic lymph nodes are appreciated. OSSEOUS STRUCTURES: Moderate disc space narrowing L5-S1 level is redemonstrated OTHER: No significan t additional abnormality is seen. IMPRESSION: Markedly improved findings consistent with resolving diverticulitis and intrahepatic absc esses. No residual intrahepatic abscesses identified currently. Interval improvement in left mid abdo coty mesenteric mass or abscess. Moderate diffuse colonic fecal stasis on current study remains pres ent. No bowel obstruction.
== END | disposition home or self-care (01) ==
LOC: RADCTMAIN 07:54
PROVIDERS: ATTEND Internal Medicine Infectious Disease
DX: K59.8 Other specified functional intestinal disorders (principal); K75.0 Abscess of liver; K57.20 Diverticulitis of large intestine with perforation and abscess without bleeding
CPT/HCPCS: 74177; Q9967

== ENCOUNTER → 2018-11-01 | Outpatient (CLI) | payer OTHER ==
[2018-11-01 10:57] LABS: HCT 47.2 % (39.0-53.0); HGB 15.2 gm/dL (13.0-17.5); MCH 31.7 pg (25.0-35.0); MCHC 32.2 g/dL (31.0-37.0); MCV 98.7 fL (80.0-100.0); Mean Platelet Volume 6.6; Platelet Count 269 k/uL (150-450); RBC 4.78 m/uL (4.30-5.90); WBC 6.1 k/uL (3.8-10.6)
[2018-11-01 11:13] LABS: Potassium 5.4 mmol/L (3.5-5.1)
== END | disposition home or self-care (01) ==
LOC: LABPAT 10:22
PROVIDERS: ATTEND Surgery
DX: Z01.818 Encounter for other preprocedural examination (principal); Z01.812 Encounter for preprocedural laboratory examination; K57.20 Diverticulitis of large intestine with perforation and abscess without bleeding; I10 Essential (primary) hypertension
CPT/HCPCS: 36415; 80051; 85027; 93005

== ENCOUNTER 2018-11-11 12:51 | Day surgery (SDC) | payer OTHER ==
[2018-11-08 17:02] VITALS: BMI 24.2
[~2018-11-11 12:51] MED LIST: LACTATED RINGERS 1,000 ML IV SCH; LIDOCAINE 1% 20 ML VIAL (10MG/ML) FOR IV START INTRADERMA PRN
[2018-11-11] MEDS ORDERED: PROPOFOL 10 MG/ML 20 ML VIAL IV ONE (13:58)
[2018-11-11 14:00] VITALS: RESP 16; TEMP 98
[2018-11-11] MEDS ORDERED: LACTATED RINGERS 1,000 ML IV ONE ×2 (14:32→15:40)
--- NOTE | 2018-11-11 14:46 | P.PCN ---
Date of Procedure: 11/11/18 Procedure(s) Performed: PREOPERATIVE DIAGNOSIS: Suspected colon mass POSTOPERATIVE DIAGNOSIS: Left colon mass 2, extensive diverticulosis, hepatic flexure polyp 2 PROCEDURE: Colonoscopy with snare polypectomy and spot injection ANESTHESIA: MAC SURGEON: Scott Macias M.D. SPECIMENS: Hepatic flexure polyps ENDOSCOPIC PROCEDURE: The patient was placed on the endoscopy table in the left decubitus position. The Olympus colonoscope was inserted into the anus and passed under direct visualization to the base of the cecum. The appendiceal orifice was visualized. From that point the scope was slowly withdrawn inspecting all surfaces carefully. There were no neoplastic inflammatory or polypoid lesions throughout the cecum or ascending colon. At the hepatic flexure 2 small polyps are both removed using the snare with cautery technique. The transverse colon appeared normal. In the descending colon at 50 cm there was a masslike lesion. This measured about 3 cm in size. A spot injection took place just proximal to this. Between 50 cm and 30 cm there were a few small polypoid lesions that may have been inflammatory in nature. At 30 cm however there was a additional masslike lesion and a spot injection took place just distal to that area. The anticipated site of resection would be from the 2 spot injection sites. The remainder of the sigmoid and rectum had extensive diverticulosis as was present throughout the majority of the colon without polypoid lesions. Digital rectal examination was normal. The patient was taken to the recovery room in stable condition per anesthesia guidelines. RECOMMENDATIONS: We'll proceed with segmental resection tomorrow. Spot injections took place to help identify the appropriate surgical resection site. Continue clear liquids today.
[2018-11-11 15:53] VITALS: BP 112/67; PULSE 71
== END 2018-11-11 16:49 | disposition home or self-care (01) ==
LOC: ORWHC2ENDO 12:51
PROVIDERS: ATTEND Surgery
DX: D12.3 Benign neoplasm of transverse colon (principal); K57.90 Diverticulosis of intestine, part unspecified, without perforation or abscess without bleeding; Z86.010 Personal history of colon polyps; I10 Essential (primary) hypertension; Z86.718 Personal history of other venous thrombosis and embolism; F17.210 Nicotine dependence, cigarettes, uncomplicated; K21.9 Gastro-esophageal reflux disease without esophagitis; Z87.19 Personal history of other diseases of the digestive system; Z79.01 Long term (current) use of anticoagulants; Z79.899 Other long term (current) drug therapy; Z88.8 Allergy status to other drugs, medicaments and biological substances
CPT/HCPCS: 88305; 45385; 45381; J2704; 44404

== ENCOUNTER 2018-11-12 11:00 | Inpatient (IN) | payer OTHER ==
[~2018-11-12 11:00] MED LIST changes: +DEXAMETHASONE SOD PHOSPHATE 10 MG/ML 1 ML VIAL IV ONE; +HEPARIN SODIUM,PORCINE 5,000 UNIT/ML 1 ML VIAL SQ ONE; +HYDROmorphone 0.5 MG/0.5 ML SYRINGE IVP PRN; -LACTATED RINGERS 1,000 ML IV SCH; +MIDAZOLAM 2 MG/2 ML VIAL IV PRN; +ONDANSETRON 4 MG/2 ML VIAL IVP ONE; +ceFAZolin IN SWFI 2 GM/20 ML SYRINGE IVP ONE; +fentaNYL (PF) 50 MCG/ML 2 ML AMP IV PRN; +metroNIDAZOLE-NS PMX 500 MG in SALINE 1 100ML.BAG IVPB ONE
[2018-11-12] MEDS: LACTATED RINGERS 1,000 ML IV SCH (11:41)
[2018-11-12] MEDS ORDERED: NALOXONE 0.4 MG/ML 1 ML VIAL IV PRN (12:11)
[2018-11-12] MEDS ORDERED: ALVIMOPAN 12 MG CAPSULE PO ONE (14:17)
[2018-11-12] MEDS ORDERED: MIDAZOLAM 2 MG/2 ML VIAL ONE (14:43)
[2018-11-12] MEDS ORDERED: LIDOCAINE 1% INJ 10MG/ML (20 ML MDV) ONE (14:43)
[2018-11-12] MEDS ORDERED: ROCURONIUM BROMIDE 10 MG/ML 10 ML VIAL IV ONE (14:43)
[2018-11-12] MEDS ORDERED: GLUCAGON 1 MG/ML VIAL ONE (14:43)
[2018-11-12] MEDS ORDERED: fentaNYL (PF) 50 MCG/ML 2 ML AMP ONE (14:43)
[2018-11-12] MEDS ORDERED: PROPOFOL 10 MG/ML 20 ML VIAL IV ONE (14:43)
[2018-11-12] MEDS ORDERED: LACTATED RINGERS 1,000 ML IV ONE ×2 (15:30→17:25)
[2018-11-12] MEDS: ROPIVACAINE 400 MG, HYDROMORPHONE (PF) 5 MG in SODIUM CHLORIDE 0.9% 170 ML EPIDURAL PRN (18:42)
[2018-11-12] MEDS ORDERED: METOCLOPRAMIDE 5 MG/ML 2 ML VIAL IVP PRN (18:55)
--- NOTE | 2018-11-12 19:05 | P.OP ---
Date of Procedure: 11/12/18 Procedure(s) Performed: PREOPERATIVE DIAGNOSIS: Colon mass POSTOPERATIVE DIAGNOSIS: Same PROCEDURE: Left colectomy, mobilization splenic flexure, small bowel resection SURGEON: Gilberto EBL: 100 mL ANESTHESIA: General COMPLICATIONS: None OPERATIVE PROCEDURE: Patient place in the operative table in the supine p osition. The patient was placed under general anesthesia. The patient was then placed in lithotomy. The abdomen was prepped and draped in usual sterile fashion. A vertical incision was made encompassing the prior umbilical hernia repair site. The fascia was divided as well. The Bookwalter retractor was utilized. The abdomen was inspected. The liver was free of abnormalities with the exception of a cyst palpable in the anterior aspect of the left lobe. The patient's left colon was very indurated and adherent to the retroperitoneum. I was able to visualize my site of tattooing at the distal transverse colon and also at the proximal sigmoid colon. The proximal descending colon had an adherent loop of small bowel that was bluntly dissected away from the colon. Looking at the portion of the mesentery of the small bowel that was adherent to the colon made me suspicious of neoplasm. A small bowel resection ensued. The small bowel was divided proximal and distal to this section. The mesentery was divided using the LigaSure device. A [id number] anastomosis took place by removing the antimesenteric portion of the staple line proximally and distally and the linear 75 stapler was fired along the antimesenteric border. A TX 60 device was used to close the defect. The TX 60 stapler line was imbricated using 3-0 GI silk Lambert sutures. A 3-0 GI silk crotch stitch was placed. 30 silks were used to reapproximate the mesenteric defect. Next the left colon was addressed. The colon was mobilized starting at the distal transverse colon. The gastrocolic ligament was divided. The proximal aspect of the white line of Toldt was incised. The bowel was brought medially. The anticipated location of the proximal left ureter was avoided. I then divided the distal transverse colon using a linear stapler. The mesentery of the left colon was divided using a combination of the LigaSure device and the 0 silk ties. No visible tissue suspicious for malignancy was left behind. I then divided the proximal sigmoid colon in a similar fashion. I further mobilized the transverse colon. This now allowed adequate length to reach the pelvis. I was not satisfied with the a ppearance of the sigmoid colon for anastomosis given the chronic induration of the sigmoid colon from previous diverticulitis. At that time I decided to perform a colocolonic anastomosis using the 28 EEA stapler passed from the rectum proximally. In order to do so the proximal and mid sigmoid colon was further mobilized and divided using a linear 75 stapler. I did remove an additional portion of the transverse colon that had a slightly ischemic appearance after mobilizing. We still had more than enough length to reach the distal sigmoid colon. The anvil was advanced into the lumen of the transverse colon and a linear 75 stapler was fired. The anvil was brought out adjacent to the staple line and a 3-0 silk pursestring was placed. After the sizers were utilized in the rectum and distal sigmoid colon the 28 EEA stapler was brought up distal to our linear stapler staple line and the EEA obturator was brought out through the sidewall of the colon. The 2 portions of the stapler were connected to one another and subsequently tightened and fired. 3-0 GI silk sutures were used to strengthen the anastomosis circumferentially although it appeared quite healthy. There was no tension and there was good viability visually to both sections of bowel. The bowel was clamped proximal to the anastomosis. The rigid sigmoidoscope was utilized to fill the anastomotic site nicely with air. There was saline in the pelvis at this time. No evidence of leak was seen. The abdomen was irrigated with saline. The midline fascia was then reapproximated using 2 separate double-stranded #1 PDS sutures. The subcutaneous tissues were closed using 3-0 Vicryl sutures. The skin was then closed using florencia. Sterile dressings were then applied. DISPOSITION: Stable to recovery room
[2018-11-12] MEDS ORDERED: HYDROmorphone 0.5 MG/0.5 ML SYRINGE IVP STA (19:53)
[2018-11-12] MEDS: D5-0.45% NACL WITH KCL 20MEQ/L 1,000 ML IV SCH (20:51)
[2018-11-12] MEDS: FAMOTIDINE 20 MG/2 ML VIAL IV SCH (20:51)
[2018-11-12] MEDS: HEPARIN SODIUM,PORCINE 5,000 UNIT/ML 1 ML VIAL SQ SCH (23:09)
[2018-11-13] MEDS: D5-0.45% NACL WITH KCL 20MEQ/L 1,000 ML IV SCH ×3 (03:39→19:22)
[2018-11-13] MEDS: LACTATED RINGERS 1,000 ML IV SCH (03:39)
[2018-11-13 07:43] LABS: Basophils % (A) 0 %; Eosinophils # (A) 0.1 k/uL (0-0.7); Eosinophils % (A) 1 %; HCT 42.6 % (39.0-53.0); HGB 13.9 gm/dL (13.0-17.5); Lymphocytes # (A) 1.2 k/uL (1.0-4.8); Lymphocytes % (A) 11 %; MCH 31.5 pg (25.0-35.0); MCHC 32.6 g/dL (31.0-37.0); MCV 96.4 fL (80.0-100.0); Mean Platelet Volume 6.7; Monocytes # (A) 0.6 k/uL (0-1.0); Monocytes % (A) 5 %; Neutrophils % (A) 83 %; Platelet Count 235 k/uL (150-450); RBC 4.42 m/uL (4.30-5.90); RDW 14.5 % (11.5-15.5); WBC 10.9 k/uL (3.8-10.6)
[2018-11-13 08:00] LABS: Anion Gap 6 mmol/L; Blood Urea Nitrogen 8 mg/dL (9-20); Calcium 8.6 mg/dL (8.4-10.2); Carbon Dioxide 25 mmol/L (22-30); Chloride 105 mmol/L (98-107); Glucose 125 mg/dL (74-99); Potassium 4.1 mmol/L (3.5-5.1); Sodium 136 mmol/L (137-145)
[2018-11-13] MEDS: FAMOTIDINE 20 MG/2 ML VIAL IV SCH ×2 (08:35→21:55)
[2018-11-13] MEDS: HEPARIN SODIUM,PORCINE 5,000 UNIT/ML 1 ML VIAL SQ SCH ×2 (08:36→18:06)
[2018-11-13] MEDS: ONDANSETRON 4 MG/2 ML VIAL IVP PRN (08:36)
[2018-11-13] MEDS: ALVIMOPAN 12 MG CAPSULE PO SCH ×2 (08:36→21:56)
[2018-11-13] MEDS: ROPIVACAINE 400 MG, HYDROMORPHONE (PF) 5 MG in SODIUM CHLORIDE 0.9% 170 ML EPIDURAL PRN (11:11)
--- NOTE | 2018-11-13 15:18 | P.PN ---
Subjective Progress Note Date: 11/13/18 Principal diagnosis: Left colon mass Patient doing better today. Postoperative pain last night was controlled gradually through the evening. White blood cell count and hemoglobin normal. Potassium 4.1. No flatus or bowel movement. No nausea or vomiting. Tolerating sips of clears. Objective - Vital Signs Vital signs: Vital Signs Temp 97.8 F 11/13/18 07:00 Pulse 81 11/13/18 07:00 Resp 16 11/13/18 07:00 BP 111/71 11/13/18 07:00 Pulse Ox 97 11/13/18 07:00 Intake & Output 11/12/18 11/13/18 11/13/18 18:59 06:59 18:59 Intake Total 2200 1790 894.333 Output Total 1200 1000 Balance 1000 790 894.333 Intake: IV 2200 0 Intake, IV Titration 1250 24.333 Amount D5-0.45% NaCl with KCl 1250 20Meq/l 1,000 ml @ 125 mls/hr IV .Q8H KATE Rx#: [id number] Ropivacaine 400 mg 24.333 Hydromorphone (Pf) 5 mg In Sodium Chloride 0.9% 170 ml @ Per Protocol EPIDURAL .Q0M PRN Rx#: [id number] Oral 540 870 Output: Urine 1100 1000 Uretheral (Garcia) 1000 Estimated Blood Loss 100 Other: Voiding Method Indwelling Catheter Indwelling Catheter - Exam Abdomen: Soft, mild distention, mild tenderness, dressing clean and dry - Labs CBC & Chem 7: 11/13/18 07:08 11/13/18 07:08 Labs: Abnormal Lab Results - Last 24 Hours (Table) 11/13/18 11/13/18 Range/Units 07:08 07:08 WBC 10.9 H (3.8-10.6) k/uL Neutrophils # 9.0 H (1.3-7.7) k/uL Sodium 136 L (137-145) mmol/L BUN 8 L (9-20) mg/dL Creatinine 0.48 L (0.66-1.25) mg/dL Glucose 125 H (74-99) mg/dL Assessment and Plan (1) Colonic mass Narrative/Plan: Continue epidural and Garcia catheter. Increase activity. Continue Entereg and gum chewing. Repeat labs tomorrow. Keep on clear liquids for now. Current Visit: Yes Status: Acute Code(s): K63.9 - DISEASE OF INTESTINE, UNSPECIFIED SNOMED Code(s): 994768978
--- NOTE | 2018-11-13 17:20 | P.CON ---
Consult Note - . Consult date: 11/13/18 Assessment/Plan:: Reason for consult - management of chronic medical conditions Mr. Johnson is a 1-year-old male with a past medical history of hypertension, recurrent diverticulitis, portal vein thrombosis, benign colonic polyps admitted for an elective left colectomy. Patient had left colectomy and mobilization of splenic flexure with small bowel resection done last night by Dr. Snow. He is postop day 1 today. Patient has past medical history of hypertension and portal vein thrombosis. He has been off of anticoagulation for the past 1 week for the surgical procedure. Today the patient is lying in bed, states that he has abdominal soreness. He still has his epidural in place. Patient is still on a Garcia's catheter and nothing by mouth. Patient's vital signs within normal limits. He denies having any chest pain or palpitations. Patient denies having any cough or difficulty in breathing. Complains of Abdominal soreness. Denies having any swelling of his lower extremities. No headaches nausea or vomiting. 13 REVIEW OF SYSTEMS DONE AND NEGATIVE EXCEPT FOR THE ONES MENTIONED ABOVE Past Medical History Past Medical History: Hypertension, Pneumonia Additional Past Medical History / Comment(s): Hx of sepsis r/t diverticulitis, hx of portal vein thrombosis, hx of liver abscess being followed by dr fred Sparrow, greatly improving, past colon polyps (bening) and diverticular disease. History of Any Multi-Drug Resistant Organisms: None Reported Past Surgical History: Hernia Repair Additional Past Surgical History / Comment(s): Umbilical hernia repair, colonoscopy/polypectomy, rhinoplasty, bilateral cataracts removed with lens implants,liver bx, PICC line, now removed Past Anesthesia/Blood Transfusion Reactions: No Reported Reaction Past Psychological History: No Psychological Hx Reported Smoking Status: Current every day smoker Past Alcohol Use History: None Reported Additional Past Alcohol Use History / Comment(s): Pt started smoking age 15 and smokes 1/2ppd, no alchohol since 07/2018 Past Drug Use History: Marijuana Additional Drug Use History / Comment(s): Occasional marijuana use. instructed to hold 24 hrs prior to procedure - Past Family History Father Family Medical History: Coronary Artery Disease (CAD) Additional Family Medical History / Comment(s): Father had CABG. He lived to be 93 yrs old. Mother Family Medical History: Dementia Additional Family Medical History / Comment(s): Mother is 88yrs old. Medications and Allergies Home Medications Medication Instructions Recorded Confirmed Type Pantoprazole [Protonix] 40 mg PO DAILY #30 tablet. 08/26/18 11/12/18 Rx metroNIDAZOLE [Flagyl] 500 mg PO TID #42 tab 08/26/18 11/12/18 Rx Apixaban [Eliquis] 5 mg PO BID 11/08/18 11/12/18 History Ciprofloxacin HCl [Cipro] 500 mg PO Q12HR 11/08/18 11/12/18 History Metoprolol Succinate [Toprol XL] 25 mg PO QAM 11/08/18 11/12/18 History amLODIPine BESYLATE/BENAZEPRIL 1 cap PO QAM 11/08/18 11/12/18 History [amLODIPine BESYLATE/BENAZEPRIL 5-10 MG] Allergies Allergy/AdvReac Type Severity Reaction Status Date / Time decongestant AdvReac INCREASES Uncoded 11/12/18 11:18 B/P Physical Exam Vitals: Vital Signs Temp Pulse Pulse Resp BP BP Pulse Ox 11/13/18 14:47 98.5 F 70 18 127/78 94 L 11/13/18 07:00 97.8 F 81 16 111/71 97 11/13/18 01:40 97.7 F 86 17 148/86 95 11/12/18 22:35 99 136/87 96 11/12/18 22:20 95 147/85 96 11/12/18 22:05 99 129/87 95 11/12/18 21:50 99 134/83 96 11/12/18 21:35 95 128/83 95 11/12/18 21:20 96 137/87 95 11/12/18 21:05 99 143/90 96 11/12/18 20:50 97 138/89 96 11/12/18 20:35 83 144/88 95 11/12/18 20:20 82 137/90 95 11/12/18 20:05 97.8 F 97 17 144/89 95 11/12/18 19:32 100 16 144/88 96 11/12/18 19:15 93 16 142/85 95 11/12/18 19:00 99 16 154/82 98 11/12/18 18:45 89 16 154/88 98 11/12/18 18:36 98.4 F 96 16 144/81 98 Intake and Output 11/13/18 11/13/18 11/13/18 06:59 14:59 22:59 Intake Total 1790 894.333 Output Total 1000 175 Balance 790 719.333 Intake: Intake, IV Titration 1250 24.333 Amount D5-0.45% NaCl with KCl 1250 20Meq/l 1,000 ml @ 125 mls/hr IV .Q8H KATE Rx#: [id number] Ropivacaine 400 mg 24.333 Hydromorphone (Pf) 5 mg In Sodium Chloride 0.9% 170 ml @ Per Protocol EPIDURAL .Q0M PRN Rx#: [id number] Oral 540 870 Output: Urine 1000 175 Uretheral (Garcia) 1000 Other: Voiding Method Indwelling Catheter GENERAL EXAM GEN. APPEARANCE: alert, in no apparent distress HEENT : Normocephalic. Pupils equal and round and reactive to light. No pallor. No icterus. NECK EXAM: normal inspection. Absent: tenderness, meningismus, full ROM, lymphadenopathy RESPIRATORY EXAM: Bilateral breath sounds are positive. Also crackles. CARDIOVASCULAR EXAM: S1-S2 heard. GI/ABDOMINAL EXAM: Abdominal binder in place. Garcia's catheter in place. Bowel sounds could not be appreciated. EXTREMITIES EXAM: normal inspection, full ROM, normal capillary refill. Absent: tenderness, pedal edema, joint swelling, calf tenderness NEUROLOGICAL EXAM: alert, oriented X3, no focal neurological deficits. PSYCHIATRIC EXAM: normal affect, normal mood SKIN EXAM: warm, dry, intact, normal color. Absent: rash Results CBC & Chem 7: 11/13/18 07:08 11/13/18 07:08 Labs: Abnormal Lab Results - Last 24 Hours (Table) 11/13/18 11/13/18 Range/Units 07:08 07:08 WBC 10.9 H (3.8-10.6) k/uL Neutrophils # 9.0 H (1.3-7.7) k/uL Sodium 136 L (137-145) mmol/L BUN 8 L (9-20) mg/dL Creatinine 0.48 L (0.66-1.25) mg/dL Glucose 125 H (74-99) mg/dL Thrombosis Risk Factor Assmnt - Choose All That Apply Any of the Below Risk Factors Present?: Yes Each Factor Represents 1 point: Age 41-60 years Other Risk Factors: Yes Each Risk Factor Represents 2 Points: Major surgery Other congenital or acquired thrombophilia - If yes, enter type in comment: No Thrombosis Risk Factor Assessment Total Risk Factor Score: 3 Thrombosis Risk Factor Assessment Level: Moderate Risk ASSESSMENT Status post Left colectomy and small bowel resection - postop day 1 Recurrent diverticulitis History of portal vein thrombosis Hypertension History of liver abscesses being followed at [facility] History of colonic polyps Umbilical hernia repair Bilateral cataract removal PLAN: Patient's blood pressure is within normal limits. His blood pressure medications are on hold, will restart if the blood pressure trends up. Advised to continue with incentive spirometry. Anticoagulation is on hold. Continue with pain medication, DVT prophylaxis as per primary team. Further recommendations depending on the progress of the patient. Thank you Dr. Macias for the consult.
--- NOTE | 2018-11-13 19:09 | P.PN ---
Progress Note - Text 11/13 1899 58-year-old male status post exploratory lap. He has an epidural catheter for postop pain control with the solution running at 10 mL an hour and has a VAS of 4. Plan to continue epidural infusion
[2018-11-14] MEDS: HEPARIN SODIUM,PORCINE 5,000 UNIT/ML 1 ML VIAL SQ SCH ×3 (00:35→17:20)
[2018-11-14] MEDS: D5-0.45% NACL WITH KCL 20MEQ/L 1,000 ML IV SCH ×3 (03:08→20:24)
[2018-11-14] MEDS: LACTATED RINGERS 1,000 ML IV SCH (03:28)
[2018-11-14] MEDS: ROPIVACAINE 400 MG, HYDROMORPHONE (PF) 5 MG in SODIUM CHLORIDE 0.9% 170 ML EPIDURAL PRN ×2 (05:44→19:49)
[2018-11-14] MEDS: ONDANSETRON 4 MG/2 ML VIAL IVP PRN (07:13)
[2018-11-14] MEDS: ALVIMOPAN 12 MG CAPSULE PO SCH ×2 (07:14→20:26)
[2018-11-14] MEDS: FAMOTIDINE 20 MG/2 ML VIAL IV SCH ×2 (07:14→20:24)
[2018-11-14 09:08] LABS: Basophils % (A) 0 %; Eosinophils % (A) 0 %; HCT 40.2 % (39.0-53.0); HGB 13.2 gm/dL (13.0-17.5); Lymphocytes % (A) 11 %; MCH 31.4 pg (25.0-35.0); MCHC 32.9 g/dL (31.0-37.0); MCV 95.4 fL (80.0-100.0); Mean Platelet Volume 7.1; Monocytes # (A) 0.5 k/uL (0-1.0); Monocytes % (A) 6 %; Neutrophils # (A) 7.1 k/uL (1.3-7.7); Neutrophils % (A) 82 %; Platelet Count 166 k/uL (150-450); RBC 4.22 m/uL (4.30-5.90); RDW 14.5 % (11.5-15.5); WBC 8.6 k/uL (3.8-10.6)
[2018-11-14 09:21] LABS: Anion Gap 5 mmol/L; Blood Urea Nitrogen 6 mg/dL (9-20); Calcium 8.7 mg/dL (8.4-10.2); Carbon Dioxide 28 mmol/L (22-30); Chloride 103 mmol/L (98-107); Glucose 140 mg/dL (74-99); Potassium 3.8 mmol/L (3.5-5.1); Sodium 136 mmol/L (137-145)
--- NOTE | 2018-11-14 09:48 | P.PN ---
Subjective Progress Note Date: 11/14/18 Principal diagnosis: Left colon mass Patient complaining of increased discomfort today. He describes increased pain in the epigastric region states that is coming up into the chest and is burning in nature. He says it feels like heartburn. He is nauseated. No flatus or bowel movement. He is belching. Today's labs look good. He is afebrile. No tachycardia. Epidural was increased with no improvement in his symptoms. Objective - Vital Signs Vital signs: Vital Signs Temp 98.4 F 11/14/18 06:43 Pulse 66 11/14/18 06:43 Resp 20 11/14/18 06:43 BP 134/80 11/14/18 06:43 Pulse Ox 93 L 11/14/18 06:43 Intake & Output 11/13/18 11/14/18 11/14/18 18:59 06:59 18:59 Intake Total 1602.333 185.5 17 Output Total 1175 2525 Balance 427.333 -2339.5 17 Intake: Intake, IV Titration 24.333 185.5 17 Amount Ropivacaine 400 mg 24.333 185.5 17 Hydromorphone (Pf) 5 mg In Sodium Chloride 0.9% 170 ml @ Per Protocol EPIDURAL .Q0M PRN Rx#: [id number] Oral 1578 Output: Urine 1175 2525 Other: Voiding Method Indwelling Catheter Indwelling Catheter Indwelling Catheter - Exam Abdomen: Soft, mild distention, mild epigastric tenderness - Labs CBC & Chem 7: 11/14/18 08:11 11/14/18 08:11 Labs: Abnormal Lab Results - Last 24 Hours (Table) 11/14/18 11/14/18 Range/Units 08:11 08:11 RBC 4.22 L (4.30-5.90) m/uL Sodium 136 L (137-145) mmol/L BUN 6 L (9-20) mg/dL Creatinine 0.45 L (0.66-1.25) mg/dL Glucose 140 H (74-99) mg/dL Assessment and Plan (1) Colonic mass Narrative/Plan: Patient with increased discomfort and nausea today. Suspect ileus and gastric distention. Will have nursing staff placed nasogastric tube to suction. Keep nothing by mouth. Increase activity as able. Current Visit: Yes Status: Acute Code(s): K63.9 - DISEASE OF INTESTINE, UNSPECIFIED SNOMED Code(s): 318448293
--- NOTE | 2018-11-14 11:26 | P.PN ---
Subjective Progress Note Date: 11/14/18 Principal diagnosis: Status post Left colectomy and small bowel resection Mr. Johnson is a 60-year-old male with a past medical history of hypertension, recurrent diverticulitis, portal vein thrombosis, benign colonic polyps admitted for an elective left colectomy. Patient had left colectomy and mobilization of splenic flexure with small bowel resection done last night by Dr. Snow. He is postop day 2 today. Patient has past medical history of hypertension and portal vein thrombosis. He has been off of anticoagulation for the past 1 week for the surgical procedure. Today the patient is lying in bed appears to be in mild distress. As per the nursing staff report patient has been throwing up since morning. He has an NG tube in place. Patient is very upset that his throwing up and does not want to be disturbed. Review of systems could not be done as the patient is not cooperative. Active Medications Alvimopan (Entereg) 12 mg PO BID [facility] Stop: 11/19/18 21:01 Last Admin: 11/14/18 07:14 Dose: 12 mg Documented by: Famotidine (Pepcid) 20 mg IV BID [facility] Last Admin: 11/14/18 07:14 Dose: 20 mg Documented by: Heparin Sodium (Porcine) (Heparin) 5,000 unit SQ Q8HR [facility] Last Admin: 11/14/18 07:14 Dose: 5,000 unit Documented by: Lactated Ringer's (Lactated Ringers) 1,000 mls @ 20 mls/hr IV .Q24H [facility] Last Admin: 11/14/18 03:28 Dose: Not Given Documented by: Ropivacaine 400 mg/Hydromorphone HCl 5 mg/ Sodium Chloride 250 mls @ 0 mls/hr EPIDURAL .Q0M PRN; Protocol PRN Reason: Pain Control Last Infusion: 11/14/18 07:26 Dose: 12 mls/hr Documented by: Potassium Chloride/Dextrose/Sod Cl (D5%-1/2ns-Kcl 20 Meq/L Iv Solution) 1,000 mls @ 125 mls/hr IV .Q8H [facility] Last Admin: 11/14/18 03:08 Dose: 125 mls/hr Documented by: Lidocaine HCl (.Xylocaine 1% Inj (10mg/Ml) For Iv Start) 0.1 ml INTRADERMA PER PROTOCOL PRN PRN Reason: IV Start Last Admin: 11/12/18 11:41 Dose: 0.1 ml Documented by: Metoclopramide HCl (Reglan) 10 mg IVP Q6HR PRN PRN Reason: Nausea and Vomiting Last Admin: 11/14/18 04:16 Dose: 10 mg Documented by: Naloxone HCl (Narcan) 0.2 mg IV Q2M PRN PRN Reason: Opioid Reversal Ondansetron HCl (Zofran) 4 mg IVP Q8HR PRN PRN Reason: Nausea And Vomiting Last Admin: 11/14/18 07:13 Dose: 4 mg Documented by: Objective - Vital Signs Vital signs: Vital Signs Temp 98.4 F 11/14/18 06:43 Pulse 66 11/14/18 06:43 Resp 20 11/14/18 06:43 BP 134/80 11/14/18 06:43 Pulse Ox 93 L 11/14/18 06:43 Intake & Output 11/13/18 11/14/18 11/14/18 18:59 06:59 18:59 Intake Total 1602.333 185.5 17 Output Total 1175 2525 1600 Balance 427.333 -2339.5 -1583 Intake: Intake, IV Titration 24.333 185.5 17 Amount Ropivacaine 400 mg 24.333 185.5 17 Hydromorphone (Pf) 5 mg In Sodium Chloride 0.9% 170 ml @ Per Protocol EPIDURAL .Q0M PRN Rx#: [id number] Oral 1578 Output: Urine 1175 2525 1600 Other: Voiding Method Indwelling Catheter Indwelling Catheter Indwelling Catheter - Exam Vitals have been reviewed. Patient does not want to be disturbed so could not do a physical exam today. - Labs CBC & Chem 7: 11/14/18 08:11 11/14/18 08:11 Labs: Abnormal Lab Results - Last 24 Hours (Table) 11/14/18 11/14/18 Range/Units 08:11 08:11 RBC 4.22 L (4.30-5.90) m/uL Sodium 136 L (137-145) mmol/L BUN 6 L (9-20) mg/dL Creatinine 0.45 L (0.66-1.25) mg/dL Glucose 140 H (74-99) mg/dL Assessment and Plan Assessment: ASSESSMENT Status post Left colectomy and small bowel resection - postop day 1 Recurrent diverticulitis History of portal vein thrombosis Hypertension History of liver abscesses being followed at [facility] History of colonic polyps Umbilical hernia repair Bilateral cataract removal PLAN: Patient's blood pressure is within normal limits, we will hold off blood pressure medical patient's as he is nothing by mouth. If at all his blood pressure goes up, we will do hydralazine on when necessary basis. Continue with pain management, DVT prophylaxis as per primary team.
[2018-11-14] MEDS ORDERED: hydrALAZINE HCL 20 MG/ML 1 ML VIAL IVP PRN (17:15)
--- NOTE | 2018-11-14 20:36 | P.PN ---
Progress Note - Text 11/14 1529 58-year-old male status post exploratory lap. Patient has an epidural catheter was solution running at 10 mL an hour, I received a call from the nurse, who told me that the patient was uncomfortable and we increase the rate to 12 mL an hour. In the afternoon Dr. Macias came around and inserted an NG tube, which brought considerable amount of relief to the patient. When I saw him in the afternoon he is fast asleep, his told me that he was doing much better. Plan to continue epidural infusion and reaches a catheter in the morning
[2018-11-15] MEDS: HEPARIN SODIUM,PORCINE 5,000 UNIT/ML 1 ML VIAL SQ SCH ×4 (00:30→23:22)
[2018-11-15] MEDS: LACTATED RINGERS 1,000 ML IV SCH (03:08)
[2018-11-15] MEDS: D5-0.45% NACL WITH KCL 20MEQ/L 1,000 ML IV SCH ×3 (04:02→20:15)
--- NOTE | 2018-11-15 07:11 | P.PN ---
Progress Note - Text 11/15 651am 58-year-old status post exploratory lap by Dr. Snow. Patient has an epidural catheter for postop pain control with the solution running at 12 mL an hour, he has a VAS of 2-3 at rest has an NG tube in place. Epidural site was examined and it was clean dry and intact no inflammation noted. I've asked the nurse reported to epidural out.
[2018-11-15 08:34] LABS: Basophils % (A) 0 %; Eosinophils # (A) 0.1 k/uL (0-0.7); Eosinophils % (A) 1 %; HGB 13.7 gm/dL (13.0-17.5); Lymphocytes # (A) 0.9 k/uL (1.0-4.8); Lymphocytes % (A) 14 %; MCH 31.7 pg (25.0-35.0); MCHC 33.3 g/dL (31.0-37.0); MCV 95.2 fL (80.0-100.0); Mean Platelet Volume 6.8; Monocytes # (A) 0.4 k/uL (0-1.0); Monocytes % (A) 6 %; Neutrophils % (A) 78 %; Platelet Count 165 k/uL (150-450); RDW 14.2 % (11.5-15.5); WBC 6.5 k/uL (3.8-10.6)
[2018-11-15 08:44] LABS: Anion Gap 6 mmol/L; Blood Urea Nitrogen 4 mg/dL (9-20); Calcium 8.7 mg/dL (8.4-10.2); Carbon Dioxide 25 mmol/L (22-30); Chloride 106 mmol/L (98-107); Glucose 124 mg/dL (74-99); Potassium 4.1 mmol/L (3.5-5.1); Sodium 137 mmol/L (137-145)
[2018-11-15] MEDS: FAMOTIDINE 20 MG/2 ML VIAL IV SCH ×2 (09:45→20:06)
--- NOTE | 2018-11-15 11:13 | P.PN ---
Subjective Progress Note Date: 11/15/18 Principal diagnosis: Status post Left colectomy and small bowel resection Mr. Johnson is a 60-year-old male with a past medical history of hypertension, recurrent diverticulitis, portal vein thrombosis, benign colonic polyps admitted for an elective left colectomy. Patient had left colectomy and mobilization of splenic flexure with small bowel resection done last night by Dr. Snow. He is postop day 2 today. Patient has past medical history of hypertension and portal vein thrombosis. He has been off of anticoagulation for the past 1 week for the surgical procedure. On 11/15/2018- patient is lying in the bed. He states he still has abdominal soreness. He is not passing gas. His epidural has been discontinued. Patient still has his catheter in place. He has NG tube to suction with around 150 mL of brownish liquid in the canister. Patient denies having any chest pain, palpitations. Patient's labs from this morning within normal limits. Active Medications Famotidine (Pepcid) 20 mg IV BID [facility] Last Admin: 11/15/18 09:45 Dose: 20 mg Documented by: Heparin Sodium (Porcine) (Heparin) 5,000 unit SQ Q8HR [facility] Last Admin: 11/15/18 00:30 Dose: 5,000 unit Documented by: Hydralazine HCl (Apresoline) 5 mg IVP Q6HR PRN PRN Reason: Blood Pressure - High Last Admin: 11/14/18 17:26 Dose: 5 mg Documented by: Hydromorphone HCl (Dilaudid) 1 mg IVP Q3HR PRN PRN Reason: Pain Lactated Ringer's (Lactated Ringers) 1,000 mls @ 20 mls/hr IV .Q24H [facility] Last Admin: 11/15/18 03:08 Dose: Not Given Documented by: Ropivacaine 400 mg/Hydromorphone HCl 5 mg/ Sodium Chloride 250 mls @ 0 mls/hr EPIDURAL .Q0M PRN; Protocol PRN Reason: Pain Control Last Admin: 11/14/18 19:49 Dose: 12 mls/hr Documented by: Potassium Chloride/Dextrose/Sod Cl (D5%-1/2ns-Kcl 20 Meq/L Iv Solution) 1,000 mls @ 125 mls/hr IV .Q8H [facility] Last Admin: 11/15/18 04:02 Dose: 125 mls/hr Documented by: Lidocaine HCl (.Xylocaine 1% Inj (10mg/Ml) For Iv Start) 0.1 ml INTRADERMA PER PROTOCOL PRN PRN Reason: IV Start Last Admin: 11/12/18 11:41 Dose: 0.1 ml Documented by: Metoclopramide HCl (Reglan) 10 mg IVP Q6HR PRN PRN Reason: Nausea and Vomiting Last Admin: 11/14/18 04:16 Dose: 10 mg Documented by: Metoclopramide HCl (Reglan) 10 mg IVP Q6HR [facility] Naloxone HCl (Narcan) 0.2 mg IV Q2M PRN PRN Reason: Opioid Reversal Ondansetron HCl (Zofran) 4 mg IVP Q8HR PRN PRN Reason: Nausea And Vomiting Last Admin: 11/14/18 07:13 Dose: 4 mg Documented by: Objective - Vital Signs Vital signs: Vital Signs Temp 98.6 F 11/15/18 07:31 Pulse 81 11/15/18 07:31 Resp 17 11/15/18 00:56 BP 156/89 11/15/18 07:31 Pulse Ox 96 11/15/18 07:31 Intake & Output 11/14/18 11/15/18 11/15/18 18:59 06:59 18:59 Intake Total 17 148.6 Output Total 2875 1600 Balance -2858 -1451.4 Intake: Intake, IV Titration 17 148.6 Amount Ropivacaine 400 mg 17 148.6 Hydromorphone (Pf) 5 mg In Sodium Chloride 0.9% 170 ml @ Per Protocol EPIDURAL .Q0M PRN Rx#: [id number] Output: Gastric Drainage 800 Urine 2075 1600 Other: Voiding Method Indwelling Catheter Indwelling Catheter Indwelling Catheter - Exam GEN. APPEARANCE: alert, in no apparent distress HEENT : Normocephalic. Pupils equal and round and reactive to light. No pallor. No icterus. NECK EXAM: normal inspection. Absent: tenderness, meningismus, full ROM, lymphadenopathy RESPIRATORY EXAM: Poor respiratory effort due to pain . Bilateral breath sounds are positive. No crackles. CARDIOVASCULAR EXAM: S1-S2 heard. GI/ABDOMINAL EXAM: Abdominal binder in place. Garcia's catheter in place. Bowel sounds could not be appreciated. EXTREMITIES EXAM: normal inspection, full ROM, normal capillary refill. No peripheral edema. NEUROLOGICAL EXAM: alert, oriented X3, no focal neurological deficits. PSYCHIATRIC EXAM: normal affect, normal mood - Labs CBC & Chem 7: 11/15/18 07:58 11/15/18 07:58 Labs: Abnormal Lab Results - Last 24 Hours (Table) 11/15/18 11/15/18 Range/Units 07:58 07:58 Lymphocytes # 0.9 L (1.0-4.8) k/uL BUN 4 L (9-20) mg/dL Creatinine 0.49 L (0.66-1.25) mg/dL Glucose 124 H (74-99) mg/dL Assessment and Plan Assessment: ASSESSMENT Status post Left colectomy and small bowel resection - postop day 3 Recurrent diverticulitis History of portal vein thrombosis Hypertension History of liver abscesses being followed at [facility] History of colonic polyps Umbilical hernia repair Bilateral cataract removal PLAN: Patient's blood pressure is slightly on the higher side. As the patient is nothing by mouth, will order hydralazine when necessary for blood pressure management. Patient's labs within normal limits. Pain management and DVT prophylaxis as per primary care team management. Patient is encouraged to continue doing incentive spirometry. Further recommendations to follow depending on the progress of the patient.
--- NOTE | 2018-11-15 11:35 | P.PN ---
<Rukhsana Freeman Rajesh - Last Filed: 11/15/18 11:29> Subjective Progress Note Date: 11/15/18 CHIEF COMPLAINT: colon mass HISTORY OF PRESENT ILLNESS: Patient is status post left colectomy and small bowel resection performed on 11/12/2018. POD #3. NG tube was inserted yesterday secondary to nausea and suspected ileus. 300cc drainage in cannister currently. Patient denies passing gas or BM. Epidural infusing. WBC 6.5. Hemoglobin 13.7. Vital signs stable. BP slighter on the higher side. Medicine is following. Afebrile. PHYSICAL EXAM: VITAL SIGNS: Reviewed. GENERAL: Well-developed in no acute distress. HEENT: No sclera icterus. Extraocular movements grossly intact. Moist buccal mucosa. Head is atraumatic, normocephalic. ABDOMEN: Soft. Mild distention. Mild tenderness upon palpation. Hypoactive bowel sounds. NEUROLOGIC: Alert and oriented. Cranial nerves II through XII grossly intact. ASSESSMENT: 1. Colonic mass, s/p left colectomy and small bowel resection 2. Postoperative ileus, an expected outcome of surgery PLAN: 1. Continue NG to LIS 2. Continue NPO. Continue IV fluids. 3. Hold morning heparin. Discontinue epidural. Will add Dilaudid IV PRN 4. Discontinue frederick 5. Entereg has been held by nursing secondary to NPO status. Will DC entereg and begin Reglan IV Q6 hours 6. Activity as tolerated 7. Incentive spirometry Nurse practitioner note has been reviewed by physician. Signing provider agrees with the documented findings, assessment, and plan of care. Objective - Vital Signs Vital signs: Vital Signs Temp 98.6 F 11/15/18 07:31 Pulse 81 11/15/18 07:31 Resp 17 11/15/18 00:56 BP 156/89 11/15/18 07:31 Pulse Ox 96 11/15/18 07:31 Intake & Output 11/14/18 11/15/18 11/15/18 18:59 06:59 18:59 Intake Total 17 148.6 Output Total 2875 1600 Balance -4606 -5513.4 Intake: Intake, IV Titration 17 148.6 Amount Ropivacaine 400 mg 17 148.6 Hydromorphone (Pf) 5 mg In Sodium Chloride 0.9% 170 ml @ Per Protocol EPIDURAL .Q0M PRN Rx#: [id number] Output: Gastric Drainage 800 Urine 2075 1600 Other: Voiding Method Indwelling Catheter Indwelling Catheter Indwelling Catheter - Labs CBC & Chem 7: 11/15/18 07:58 11/15/18 07:58 Labs: Abnormal Lab Results - Last 24 Hours (Table) 11/15/18 11/15/18 Range/Units 07:58 07:58 Lymphocytes # 0.9 L (1.0-4.8) k/uL BUN 4 L (9-20) mg/dL Creatinine 0.49 L (0.66-1.25) mg/dL Glucose 124 H (74-99) mg/dL <Scott Macias - Last Filed: 11/15/18 13:05> Subjective As above. Patient has less pain than yesterday. Still states his pain is epigastric in location. Epidural was removed earlier today. Remove Frederick catheter this afternoon. Begin Toradol. Keep nasogastric tube to suction. Objective - Vital Signs Vital signs: Vital Signs Temp 98.6 F 11/15/18 07:31 Pulse 81 11/15/18 07:31 Resp 17 11/15/18 00:56 BP 156/89 11/15/18 07:31 Pulse Ox 96 11/15/18 07:31 Intake & Output 11/14/18 11/15/18 11/15/18 18:59 06:59 18:59 Intake Total 17 148.6 Output Total 2875 1600 Balance -6448 -6919.4 Intake: Intake, IV Titration 17 148.6 Amount Ropivacaine 400 mg 17 148.6 Hydromorphone (Pf) 5 mg In Sodium Chloride 0.9% 170 ml @ Per Protocol EPIDURAL .Q0M PRN Rx#: [id number] Output: Gastric Drainage 800 Urine 2075 1600 Other: Voiding Method Indwelling Catheter Indwelling Catheter Indwelling Catheter - Labs CBC & Chem 7: 11/15/18 07:58 11/15/18 07:58 Labs: Abnormal Lab Results - Last 24 Hours (Table) 11/15/18 11/15/18 Range/Units 07:58 07:58 Lymphocytes # 0.9 L (1.0-4.8) k/uL BUN 4 L (9-20) mg/dL Creatinine 0.49 L (0.66-1.25) mg/dL Glucose 124 H (74-99) mg/dL Assessment and Plan (1) Colonic mass Current Visit: Yes Status: Acute Code(s): K63.9 - DISEASE OF INTESTINE, UNSPECIFIED SNOMED Code(s): 644804106
[2018-11-15] MEDS: METOCLOPRAMIDE 5 MG/ML 2 ML VIAL IVP SCH ×3 (12:08→23:23)
[2018-11-15] MEDS: HYDROmorphone 1 MG/ML 1 ML SYRINGE IVP PRN ×2 (13:32→23:22)
[2018-11-15] MEDS: ALVIMOPAN 12 MG CAPSULE PO SCH (14:53)
[2018-11-15] MEDS ORDERED: KETOROLAC 30 MG/ML 1 ML VIAL IM SCH (18:00)
[2018-11-15] MEDS: KETOROLAC 30 MG/ML 1 ML VIAL IVP SCH (23:23)
[2018-11-16] MEDS: LACTATED RINGERS 1,000 ML IV SCH (03:14)
[2018-11-16] MEDS: D5-0.45% NACL WITH KCL 20MEQ/L 1,000 ML IV SCH ×3 (03:15→21:24)
[2018-11-16] MEDS: HYDROmorphone 1 MG/ML 1 ML SYRINGE IVP PRN ×2 (05:11→08:43)
[2018-11-16] MEDS: METOCLOPRAMIDE 5 MG/ML 2 ML VIAL IVP SCH ×3 (05:12→17:29)
[2018-11-16] MEDS: KETOROLAC 30 MG/ML 1 ML VIAL IVP SCH ×3 (05:12→17:28)
[2018-11-16 07:49] LABS: Basophils % (A) 0 %; Eosinophils # (A) 0.1 k/uL (0-0.7); Eosinophils % (A) 2 %; HCT 38.8 % (39.0-53.0); HGB 12.9 gm/dL (13.0-17.5); Lymphocytes # (A) 1.2 k/uL (1.0-4.8); Lymphocytes % (A) 21 %; MCH 31.8 pg (25.0-35.0); MCHC 33.4 g/dL (31.0-37.0); MCV 95.4 fL (80.0-100.0); Mean Platelet Volume 7.2; Monocytes # (A) 0.3 k/uL (0-1.0); Monocytes % (A) 5 %; Neutrophils # (A) 4.2 k/uL (1.3-7.7); Neutrophils % (A) 71 %; Platelet Count 162 k/uL (150-450); RBC 4.07 m/uL (4.30-5.90); RDW 14.7 % (11.5-15.5); WBC 5.9 k/uL (3.8-10.6)
[2018-11-16 08:00] LABS: Anion Gap 5 mmol/L; Blood Urea Nitrogen 6 mg/dL (9-20); Calcium 8.8 mg/dL (8.4-10.2); Carbon Dioxide 24 mmol/L (22-30); Chloride 108 mmol/L (98-107); Glucose 122 mg/dL (74-99); Potassium 4.6 mmol/L (3.5-5.1); Sodium 137 mmol/L (137-145)
[2018-11-16] MEDS: FAMOTIDINE 20 MG/2 ML VIAL IV SCH ×2 (08:42→21:24)
[2018-11-16] MEDS: HEPARIN SODIUM,PORCINE 5,000 UNIT/ML 1 ML VIAL SQ SCH ×2 (08:42→17:28)
--- NOTE | 2018-11-16 11:59 | P.PN ---
<Rukhsana Freeman Rajesh - Last Filed: 11/16/18 11:56> Subjective Progress Note Date: 11/16/18 CHIEF COMPLAINT: colon mass HISTORY OF PRESENT ILLNESS: Patient is status post left colectomy and small bowel resection performed on 11/12/2018. POD #4. Patient reports improvement in abdominal pain and epigastric pain. Passing flatus this morning. NG to LIS. Epidural DC yesterday. Garcia discontinued. Patient voiding without difficulty. WBC 5.9. Hemoglobin 12.9 PHYSICAL EXAM: VITAL SIGNS: Reviewed. GENERAL: Well-developed in no acute distress. HEENT: No sclera icterus. Extraocular movements grossly intact. Moist buccal mucosa. Head is atraumatic, normocephalic. ABDOMEN: Soft. Distention improved. Mild tenderness upon palpation. Positive bowel sounds. NEUROLOGIC: Alert and oriented. Cranial nerves II through XII grossly intact. ASSESSMENT: 1. Colonic mass, s/p left colectomy and small bowel resection 2. Postoperative ileus, an expected outcome of surgery PLAN: 1. Discontinue NG tube 2. Begin clear liquid diet 3. Activity as tolerated 4. Incentive spirometry Nurse practitioner note has been reviewed by physician. Signing provider agrees with the documented findings, assessment, and plan of care. Objective - Vital Signs Vital signs: Vital Signs Temp 98.1 F 11/16/18 07:34 Pulse 69 11/16/18 07:34 Resp 16 11/16/18 07:34 BP 179/87 11/16/18 07:34 Pulse Ox 96 11/16/18 07:34 Intake & Output 11/15/18 11/16/18 11/16/18 18:59 06:59 18:59 Output Total 800 570 250 Balance -800 -570 -250 Output: Gastric Drainage 150 Urine 800 420 250 Uretheral (Garcia) 800 Other: Voiding Method Indwelling Catheter Urinal - Labs CBC & Chem 7: 11/16/18 07:18 11/16/18 07:18 Labs: Abnormal Lab Results - Last 24 Hours (Table) 11/16/18 11/16/18 Range/Units 07:18 07:18 RBC 4.07 L (4.30-5.90) m/uL Hgb 12.9 L (13.0-17.5) gm/dL Hct 38.8 L (39.0-53.0) % Chloride 108 H (98-107) mmol/L BUN 6 L (9-20) mg/dL Creatinine 0.54 L (0.66-1.25) mg/dL Glucose 122 H (74-99) mg/dL <Scott Macias - Last Filed: 11/16/18 18:43> Subjective Patient doing well today. He has had a bowel movement. Pain is improving. He is ambulating. Tolerating clear liquids currently. Anticipate advancing diet tomorrow. Likely home on . Objective - Vital Signs Vital signs: Vital Signs Temp 97.6 F 11/16/18 13:08 Pulse 76 11/16/18 13:08 Resp 16 11/16/18 13:08 BP 159/89 11/16/18 13:08 Pulse Ox 94 L 11/16/18 13:08 Intake & Output 11/15/18 11/16/18 11/16/18 18:59 06:59 18:59 Output Total 800 570 250 Balance -800 -570 -250 Weight 68.039 kg Output: Gastric Drainage 150 Urine 800 420 250 Uretheral (Garcia) 800 Other: Voiding Method Indwelling Catheter Urinal - Labs CBC & Chem 7: 11/16/18 07:18 11/16/18 07:18 Labs: Abnormal Lab Results - Last 24 Hours (Table) 11/16/18 11/16/18 Range/Units 07:18 07:18 RBC 4.07 L (4.30-5.90) m/uL Hgb 12.9 L (13.0-17.5) gm/dL Hct 38.8 L (39.0-53.0) % Chloride 108 H (98-107) mmol/L BUN 6 L (9-20) mg/dL Creatinine 0.54 L (0.66-1.25) mg/dL Glucose 122 H (74-99) mg/dL Assessment and Plan (1) Colonic mass Current Visit: Yes Status: Acute Code(s): K63.9 - DISEASE OF INTESTINE, UNSPECIFIED SNOMED Code(s): 784227511
[2018-11-16 13:23] VITALS: BMI 24.2
--- NOTE | 2018-11-17 00:25 | P.PN ---
Subjective Mr. Johnson is a 60-year-old male with a past medical history of hypertension, recurrent diverticulitis, portal vein thrombosis, benign colonic polyps admitted for an elective left colectomy. Patient had left colectomy and mobilization of splenic flexure with small bowel resection done last night by Dr. Snow. He is postop day 2 today. Patient has past medical history of hypertension and portal vein thrombosis. He has been off of anticoagulation for the past 1 week for the surgical procedure. On 11/15/2018- patient is lying in the bed. He states he still has abdominal soreness. He is not passing gas. His epidural has been discontinued. Patient still has his catheter in place. He has NG tube to suction with around 150 mL of brownish liquid in the canister. Patient denies having any chest pain, palpitations. Patient's labs from this morning within normal limits. 11/16/2018 Patient is comfortable with no distress. No chest pain or dyspnea. He has controlled pain and his abdominal surgical site. He is passing gases but no bowel movement yet. His NG tube was taking off this morning and start clear liquid diet by the surgical team recommendation. He is hemodynamically stable. Labs from today were unremarkable including CBC and BMP. Lower fluids flowing great from D5 half-normal saline at 125 down to 75 mL/h. Objective - Vital Signs Vital signs: Vital Signs Temp 98.1 F 11/16/18 07:34 Pulse 69 11/16/18 07:34 Resp 16 11/16/18 07:34 BP 179/87 11/16/18 07:34 Pulse Ox 96 11/16/18 07:34 Intake & Output 11/15/18 11/16/18 11/16/18 18:59 06:59 18:59 Output Total 800 570 250 Balance -800 -570 -250 Weight 68.039 kg Output: Gastric Drainage 150 Urine 800 420 250 Uretheral (Garcia) 800 Other: Voiding Method Indwelling Catheter Urinal - Exam GEN. APPEARANCE: alert, in no apparent distress HEENT : Normocephalic. Pupils equal and round and reactive to light. No pallor. No icterus. NECK EXAM: normal inspection. Absent: tenderness, meningismus, full ROM, lymphadenopathy RESPIRATORY EXAM: Poor respiratory effort due to pain . Bilateral breath sounds are positive. No crackles. CARDIOVASCULAR EXAM: S1-S2 heard. -GI/ABDOMINAL EXAM: Surgical wound is intact with dressing is in a Place, Abdominal binder in place. Garcia's catheter in place. Bowel sounds could not be appreciated. EXTREMITIES EXAM: normal inspection, full ROM, normal capillary refill. No peripheral edema. NEUROLOGICAL EXAM: alert, oriented X3, no focal neurological deficits. PSYCHIATRIC EXAM: normal affect, normal mood - Labs CBC & Chem 7: 11/16/18 07:18 11/16/18 07:18 Labs: Abnormal Lab Results - Last 24 Hours (Table) 11/16/18 11/16/18 Range/Units 07:18 07:18 RBC 4.07 L (4.30-5.90) m/uL Hgb 12.9 L (13.0-17.5) gm/dL Hct 38.8 L (39.0-53.0) % Chloride 108 H (98-107) mmol/L BUN 6 L (9-20) mg/dL Creatinine 0.54 L (0.66-1.25) mg/dL Glucose 122 H (74-99) mg/dL Assessment and Plan Assessment: Status post Left colectomy and small bowel resection - postop day 3 Recurrent diverticulitis History of portal vein thrombosis Hypertension History of liver abscesses being [facility] at [facility] History of colonic polyps Umbilical hernia repair Bilateral cataract removal Plan: pt N/G tube was taken off and he was started on diet and will be advanced as tolerated. lower his iv fluid, his pain looks controlled, toradol was added. colon pathology is still pending . continue with heparin for dvt prophylaxis. Patient's blood pressure is controlled. Patient's labs within normal limits. Pain management and DVT prophylaxis as per primary care team management. Patient is encouraged to continue doing incentive spirometry. Further recommendations to follow depending on the progress of the patient.
[2018-11-17] MEDS: KETOROLAC 30 MG/ML 1 ML VIAL IVP SCH ×2 (01:13→05:33)
[2018-11-17] MEDS: HEPARIN SODIUM,PORCINE 5,000 UNIT/ML 1 ML VIAL SQ SCH ×2 (01:13→09:05)
[2018-11-17] MEDS: METOCLOPRAMIDE 5 MG/ML 2 ML VIAL IVP SCH ×2 (01:13→05:33)
[2018-11-17] MEDS: LACTATED RINGERS 1,000 ML IV SCH (02:33)
[2018-11-17] MEDS ORDERED: HYDROcodone/APAP 5-325MG 1 EACH TAB PO PRN (08:37)
[2018-11-17 08:44] VITALS: RESP 16
[2018-11-17] MEDS: FAMOTIDINE 20 MG/2 ML VIAL IV SCH (09:06)
--- NOTE | 2018-11-17 10:18 | P.PN ---
Subjective Mr. Johnson is a 60-year-old male with a past medical history of hypertension, recurrent diverticulitis, portal vein thrombosis, benign colonic polyps admitted for an elective left colectomy. Patient had left colectomy and mobilization of splenic flexure with small bowel resection done last night by Dr. Snow. He is postop day 2 today. Patient has past medical history of hypertension and portal vein thrombosis. He has been off of anticoagulation for the past 1 week for the surgical procedure. On 11/15/2018- patient is lying in the bed. He states he still has abdominal soreness. He is not passing gas. His epidural has been discontinued. Patient still has his catheter in place. He has NG tube to suction with around 150 mL of brownish liquid in the canister. Patient denies having any chest pain, palpitations. Patient's labs from this morning within normal limits. 11/16/2018 Patient is comfortable with no distress. No chest pain or dyspnea. He has controlled pain and his abdominal surgical site. He is passing gases but no bowel movement yet. His NG tube was taking off this morning and start clear liquid diet by the surgical team recommendation. He is hemodynamically stable. Labs from today were unremarkable including CBC and BMP. Lower fluids flowing great from D5 half-normal saline at 125 down to 75 mL/h. 11/17/2018 Patient is doing well. He was found standing in the restroom shaving and no personal hygiene. He was fully awake and alert. Patient denies chest pain or dyspnea. He has minimal pain at surgical site and it looks is well controlled. Patient says that he is tolerating diet well with no problem. And he has bowel movement yesterday and today which were regular as per patient. No other complaints for him. No headache. No change in urine habits. Vitas looks stable and patient is afebrile. Blood pressure is better controlled today at 133/74. He is saturating 96% on room air. His surgical pathology results is back showing acute diverticulitis with diverticular ruptures in the left: Biopsy. Benign pericolic lymph nodes. And small bowel biopsy showing inflammation with benign mesenteric lymph nodes.(See full report for more details). Patient was on [place] and Toradol as per primary team. Objective - Vital Signs Vital signs: Vital Signs Temp 98.3 F 11/17/18 07:21 Pulse 65 11/17/18 07:21 Resp 16 11/17/18 07:21 BP 133/74 11/17/18 07:21 Pulse Ox 96 11/17/18 07:21 Intake & Output 11/16/18 11/17/18 11/17/18 18:59 06:59 18:59 Output Total 250 Balance -250 Weight 68.039 kg Output: Urine 250 Other: Voiding Method Urinal - Exam GEN. APPEARANCE: alert, in no apparent distress HEENT : Normocephalic. Pupils equal and round and reactive to light. No pallor. No icterus. NECK EXAM: normal inspection. Absent: tenderness, meningismus, full ROM, lymphadenopathy RESPIRATORY EXAM: Poor respiratory effort due to pain . Bilateral breath sounds are positive. No crackles. CARDIOVASCULAR EXAM: S1-S2 heard. -GI/ABDOMINAL EXAM: Surgical wound is intact with dressing is in a Place, Abdominal binder in place. Garcia's catheter in place. Bowel sounds could not be appreciated. EXTREMITIES EXAM: normal inspection, full ROM, normal capillary refill. No peripheral edema. NEUROLOGICAL EXAM: alert, oriented X3, no focal neurological deficits. PSYCHIATRIC EXAM: normal affect, normal mood - Labs CBC & Chem 7: 11/16/18 07:18 11/16/18 07:18 Assessment and Plan Assessment: Status post Left colectomy and small bowel resection Recurrent diverticulitis History of portal vein thrombosis Hypertension History of liver abscesses being followed at [facility] History of colonic polyps Umbilical hernia repair Bilateral cataract removal Plan: pt N/G tube was taken off and he was started on diet and will be advanced as tolerated. lower his iv fluid, his pain looks controlled, toradol was added. colon pathology is still pending . continue with heparin for dvt prophylaxis. Patient's blood pressure is controlled. Patient's labs within normal limits. Pain management and DVT prophylaxis as per primary care team management. Patient is encouraged to continue doing incentive spirometry. Further recommendations to follow depending on the progress of the patient. Recommend patient follow up with his PCP in one week after discharge. Thank you for consulting us.
--- NOTE | 2018-11-17 11:38 | P.PN ---
<Rukhsana Freeman - Last Filed: 11/17/18 11:36> Subjective Progress Note Date: 11/17/18 CHIEF COMPLAINT: colon mass HISTORY OF PRESENT ILLNESS: Patient is status post left colectomy and small bowel resection performed on 11/12/2018. POD #5. Patient tolerating clear liquid diet. Denies nausea or vomiting. Passing flatus and having BMs. Reports improvement in abdominal pain. He would like to be discharged home this afternoon. PHYSICAL EXAM: VITAL SIGNS: Reviewed. GENERAL: Well-developed in no acute distress. HEENT: No sclera icterus. Extraocular movements grossly intact. Moist buccal mucosa. Head is atraumatic, normocephalic. ABDOMEN: Soft. Nondistended. Nontender. Positive bowel sounds. NEUROLOGIC: Alert and oriented. Cranial nerves II through XII grossly intact. ASSESSMENT: 1. Colonic mass, s/p left colectomy and small bowel resection 2. Postoperative ileus, an expected outcome of surgery, resolved PLAN: 1. Advance diet 2. Activity as tolerated 3. Incentive spirometry 4. Patient would like to be discharged home this afternoon. Will re-assess this afternoon after diet is advanced for possible DC home today. Nurse practitioner note has been reviewed by physician. Signing provider agrees with the documented findings, assessment, and plan of care. Objective - Vital Signs Vital signs: Vital Signs Temp 98.3 F 11/17/18 07:21 Pulse 65 11/17/18 07:21 Resp 16 11/17/18 07:21 BP 133/74 11/17/18 07:21 Pulse Ox 96 11/17/18 07:21 Intake & Output 11/16/18 11/17/18 11/17/18 18:59 06:59 18:59 Output Total 250 Balance -250 Weight 68.039 kg Output: Urine 250 Other: Voiding Method Urinal - Labs CBC & Chem 7: 11/16/18 07:18 11/16/18 07:18 <Scott Macias - Last Filed: 11/17/18 12:33> Subjective As well. Patient doing well today. Tolerating diet. Good flatus and bowel movements. Pain is minimal. Pathology thankfully benign. May discharge. Follow-up one week. Objective - Vital Signs Vital signs: Vital Signs Temp 98.3 F 11/17/18 07:21 Pulse 65 11/17/18 07:21 Resp 16 11/17/18 07:21 BP 133/74 11/17/18 07:21 Pulse Ox 96 11/17/18 07:21 Intake & Output 11/16/18 11/17/18 11/17/18 18:59 06:59 18:59 Output Total 250 Balance -250 Weight 68.039 kg Output: Urine 250 Other: Voiding Method Urinal - Labs CBC & Chem 7: 11/16/18 07:18 11/16/18 07:18 Assessment and Plan (1) Colonic mass Current Visit: Yes Status: Acute Code(s): K63.9 - DISEASE OF INTESTINE, UNSPECIFIED SNOMED Code(s): 030029346
--- NOTE | 2018-11-17 13:56 | P.DS ---
Providers Date of admission: 11/12/18 11:09 Expected date of discharge: 11/17/18 Attending physician: Scott Macias Consults: 11/12/18 18:57 Consult Physician Routine Consulting Provider: Margot Barr Consult Reason/Comments: Medical management Do you want consulting provider notified?: Yes Primary care physician: Mary Alvarado Hospital Course: 58 year old male who is status post left colectomy and small bowel resection performed on 11/12/2018. Patient doing well postoperatively. He did develop an ileus and was treated with NG tube decompression and bowel rest, which has since resolved. Patient is tolerating full liquid diet. Having bowel movements. Pain is controlled on oral medications. Vital signs have been stable. Patient is stable for discharge home today. Please see EMR for further hospital course details. Discharge Diagnosis: 1. Colonic mass, s/p left colectomy and small bowel resection 2. Postoperative ileus, an expected outcome of surgery, resolved Nurse practitioner note has been reviewed by physician. Signing provider agrees with the documented findings, assessment, and plan of care. Plan - Discharge Summary Discharge Rx Participant: Yes New Discharge Prescriptions: New Hydrocodone/Acetaminophen [[place] 5-325] 1 tab PO Q4HR PRN 3 Days #18 tab PRN Reason: Pain No Action Pantoprazole [Protonix] 40 mg PO DAILY #30 tablet. metroNIDAZOLE [Flagyl] 500 mg PO TID #42 tab amLODIPine BESYLATE/BENAZEPRIL [amLODIPine BESYLATE/BENAZEPRIL 5-10 MG] 1 cap PO QAM Metoprolol Succinate [Toprol XL] 25 mg PO QAM Ciprofloxacin HCl [Cipro] 500 mg PO Q12HR Apixaban [Eliquis] 5 mg PO BID Discharge Medication List Pantoprazole [Protonix] 40 mg PO DAILY #30 tablet. 08/26/18 [Rx] metroNIDAZOLE [Flagyl] 500 mg PO TID #42 tab 08/26/18 [Rx] Apixaban [Eliquis] 5 mg PO BID 11/08/18 [History] Ciprofloxacin HCl [Cipro] 500 mg PO Q12HR 11/08/18 [History] Metoprolol Succinate [Toprol XL] 25 mg PO QAM 11/08/18 [History] amLODIPine BESYLATE/BENAZEPRIL [amLODIPine BESYLATE/BENAZEPRIL 5-10 MG] 1 cap PO QAM 11/08/18 [History] Hydrocodone/Acetaminophen [[place] 5-325] 1 tab PO Q4HR PRN 3 Days #18 tab 11/17/18 [Rx] Follow up Appointment(s)/Referral(s): Scott Macias MD [Medical Doctor] - 1 Week Mary Alvarado DO [Primary Care Provider] - 1 Week Activity/Diet/Wound Care/Special Instructions: No driving while taking [place] No lifting over 10 pounds You may shower. No soaking or tub baths Very light activity until you are reevaluated at your follow up appointment with your surgeon Continue full liquid diet today. Slowly advance diet as tolerated
[2018-11-17 15:07] VITALS: BP 164/84; PULSE 73; TEMP 98.6
== END 2018-11-17 15:58 | disposition home or self-care (01) | DRG 329 ==
LOC: 2ORMAIN 11:09 → 4SSUR 18:36
PROVIDERS: ADMIT Surgery; ATTEND Surgery
PROC: 0DTG0ZZ Resection of Left Large Intestine, Open Approach (ICD-10-PCS; principal; 2018-11-12 12:55)
PROC: 0DB80ZZ Excision of Small Intestine, Open Approach (ICD-10-PCS; principal; 2018-11-12 12:55)
DX: K57.20 Diverticulitis of large intestine with perforation and abscess without bleeding (principal); I81 Portal vein thrombosis; K91.89 Other postprocedural complications and disorders of digestive system; K56.7 Ileus, unspecified; I10 Essential (primary) hypertension; F17.200 Nicotine dependence, unspecified, uncomplicated; Z96.1 Presence of intraocular lens; Z86.718 Personal history of other venous thrombosis and embolism; Z79.01 Long term (current) use of anticoagulants; Z79.899 Other long term (current) drug therapy; Z82.49 Family history of ischemic heart disease and other diseases of the circulatory system; Z86.010 Personal history of colon polyps; Z87.01 Personal history of pneumonia (recurrent); Z98.42 Cataract extraction status, left eye; Z81.8 Family history of other mental and behavioral disorders; Z98.41 Cataract extraction status, right eye; Z88.8 Allergy status to other drugs, medicaments and biological substances; Z98.890 Other specified postprocedural states
CPT/HCPCS: 80048; 84132; 85025; 86850; 86900; 86901; 88307; 88309

== ENCOUNTER 2024-01-26 22:40 | Inpatient (IN) | payer MEDICARE ==
[2024-01-26] MEDS: KETOROLAC 15 MG/ML 1 ML VIAL IVP STA (23:45)
[2024-01-26] MEDS: METOCLOPRAMIDE 5 MG/ML 2 ML VIAL IVP STA (23:45)
[2024-01-26] MEDS: SODIUM CHLORIDE 0.9% 1,000 ML IV STA (23:46)
[2024-01-26] MEDS: MORPHINE SULFATE 4 MG/ML SYRINGE IVP STA (23:46)
[2024-01-26 23:49] LABS: Basophils % (A) 0 %; Eosinophils # (A) 0.1 k/uL (0-0.7); Eosinophils % (A) 1 %; HCT 47.6 % (39.0-53.0); HGB 16.4 gm/dL (13.0-17.5); Lymphocytes # (A) 0.5 k/uL (1.0-4.8); Lymphocytes % (A) 4 %; MCH 35.3 pg (25.0-35.0); MCHC 34.5 g/dL (31.0-37.0); MCV 102.2 fL (80.0-100.0); Mean Platelet Volume 7.8; Monocytes # (A) 0.4 k/uL (0-1.0); Monocytes % (A) 3 %; Neutrophils # (A) 11.5 k/uL (1.3-7.7); Neutrophils % (A) 92 %; Platelet Count 275 k/uL (150-450); RBC 4.65 m/uL (4.30-5.90); RDW 11.8 % (11.5-15.5); WBC 12.5 k/uL (3.8-10.6)
[2024-01-27 00:19] LABS: ALT 49 U/L (4-49); AST 37 U/L (17-59); African American GFR (CKD) >90 (>60 ml/min/1.73 sqM); Albumin 4.4 g/dL (3.5-5.0); Alkaline Phosphatase 88 U/L (38-126); Anion Gap 12 mmol/L; Blood Urea Nitrogen 13 mg/dL (9-20); Calcium 9.5 mg/dL (8.4-10.2); Carbon Dioxide 17 mmol/L (22-30); Chloride 107 mmol/L (98-107); Glucose 159 mg/dL (74-99); Non-African American GFR(CKD) >90 (>60 ml/min/1.73 sqM); Potassium 3.6 mmol/L (3.5-5.1); Sodium 136 mmol/L (137-145); Total Bilirubin 1.3 mg/dL (0.2-1.3); Total Protein 7.7 g/dL (6.3-8.2)
[2024-01-27 00:39] LABS: Amylase 735 U/L (30-110)
[2024-01-27 00:51] LABS: Lipase 3924 U/L (23-300)
[2024-01-27 01:28] LABS: Appearance,Urine Clear (Clear); Bilirubin,Urine Negative (Negative); Blood,Urine Negative (Negative); Color,Urine Light Yellow; Glucose,Urine (UA) Trace (Negative); Ketones,Urine 1+ (Negative); Leukocyte Esterase,Urine Negative (Negative); Nitrite,Urine Negative (Negative); PH, Urine 7.5 (5.0-8.0); Protein,Urine Trace (Negative); Specific Gravity,Urine 1.026 (1.001-1.035); Urobilinogen,Urine <2.0 mg/dL (<2.0)
[2024-01-27] MEDS ORDERED: ONDANSETRON 4 MG/2 ML VIAL IVP PRN (01:40)
[2024-01-27] MEDS: LACTATED RINGERS 1,000 ML IV ONE (01:49)
[2024-01-27] MEDS: LACTATED RINGERS 1,000 ML IV SCH (01:49)
[2024-01-27] MEDS: HYDROmorphone 1 MG/ML 1 ML SYRINGE IVP PRN (01:50)
--- NOTE | 2024-01-27 02:25 | CT ---
EXAM: CT Abdomen and Pelvis With Intravenous Contrast CLINICAL HISTORY: ITS.REASON CT Reason: abdominal pain TECHNIQUE: Axial computed tomography images of the abdomen and pelvis with intravenous contrast. CTDI is 22.9 mGy and DLP is 1074.9 mGy-cm. This CT exam was performed using one or more of the following dose reduction techniques: automated exposure control, adjustment of the mA and/or kV according to patient size, and/or use of iterative reconstruction technique.imaging was performed. COMPARISON: No relevant prior studies available. FINDINGS: Lung bases: Unremarkable. No mass. No consolidation. ABDOMEN: Liver: Hepatic steatosis. Small benign hepatic cysts. Gallbladder and bile ducts: Dilated common bile duct measuring 1.5 cm without visible calcified duct stone. Single gallstone identified at the gallbladder neck. No CT evidence of cholecystitis. Pancreas: Stranding and fluid around the head and body of the pancreas consistent with pancreatitis. Hypoenhancement of the pancreatic head concerning for developing pancreatic necrosis. This involves approximately 15-20% of the gland parenchyma. No significant pancreatic duct dilatation. No organized peripancreatic collections. Inflammatory changes within the gastric antrum and duodenum, presumed reactive to pancreatitis. Spleen: Unremarkable. No splenomegaly. Adrenals: Unremarkable. No mass. Kidneys and ureters: Unremarkable. No solid mass. No hydronephrosis. Stomach and bowel: No bowel obstruction. Diverticulosis without diverticulitis. Postoperative changes of the small bowel. Small bowel fluid levels suggesting ileus. Postoperative changes of the sigmoid colon. PELVIS: Appendix: Normal appendix. Bladder: Unremarkable. No mass. Reproductive: Prostatomegaly. ABDOMEN and PELVIS: Intraperitoneal space: Ascites tracks inferiorly from the pancreas to the right retroperitoneum. Bones/joints: No acute fracture or dislocation. Soft tissues: Fat-containing umbilical hernia. Fat-containing inguinal hernias. Vasculature: Unremarkable. No abdominal aortic aneurysm. Lymph nodes: Unremarkable. No enlarged lymph nodes. IMPRESSION: 1. Stranding and fluid around the head and body of the pancreas consistent with pancreatitis. Hypoenhancement of the pancreatic head concerning for developing pancreatic necrosis. This involves approximately 15-20% of the gland parenchyma. Close clinical and imaging follow-up advised. 2. Dilated common bile duct measuring 1.5 cm without visible calcified duct stone. Correlate for biliary obstruction and consider MRCP as clinically indicated. Note that the density of the gallstone within the gallbladder is similar to the density of the pancreas, and a distal common bile duct stone would be difficult to visualize by CT. 3. Inflammatory changes within the gastric antrum and duodenum, presumed reactive to pancreatitis. 4. Small bowel fluid levels suggesting ileus.
[2024-01-27] MEDS ORDERED: NALOXONE 0.4 MG/ML 1 ML VIAL IV PRN (03:03)
--- NOTE | 2024-01-27 03:05 | ED ---
Abdominal Pain HPI - General Chief Complaint: Abdominal Pain Stated Complaint: ABD Pain Time Seen by Provider: 01/26/24 23:10 Source: patient, EMS Mode of arrival: EMS Limitations: no limitations - History of Present Illness Initial Comments: 63-year-old male presenting with chief complaint of abdominal pain. Pain started earlier today around 3 PM after he is traveling. States that he started to feel indigestion type discomfort in the epigastric region. He took Pepto- Bismol, he later developed nausea and vomiting. Pain progressively got worse throughout the day. Patient admits to daily drinking, states he normally drinks 2 white claws per day. Surgical history includes previous bowel resection. He admits to bloating. No fever. No cough, congestion, sore throat, fever, chills. - Related Data Home Medications Medication Instructions Recorded Confirmed Apixaban [Eliquis] 5 mg PO BID 11/08/18 11/12/18 Ciprofloxacin HCl [Cipro] 500 mg PO Q12HR 11/08/18 11/12/18 Metoprolol Succinate [Toprol XL] 25 mg PO QAM 11/08/18 11/12/18 amLODIPine BESYLATE/BENAZEPRIL 1 cap PO QAM 11/08/18 11/12/18 [amLODIPine BESYLATE/BENAZEPRIL 5-10 MG] Previous Rx's Medication Instructions Recorded Pantoprazole [Protonix] 40 mg PO DAILY #30 tablet. 08/26/18 metroNIDAZOLE [Flagyl] 500 mg PO TID #42 tab 08/26/18 Hydrocodone/Acetaminophen [[place] 1 tab PO Q4HR PRN 3 Days #18 tab 11/17/18 5-325] Allergies Allergy/AdvReac Type Severity Reaction Status Date / Time decongestant AdvReac INCREASES Uncoded 11/12/18 11:18 B/P Review of Systems ROS Statement: Those systems with pertinent positive or pertinent negative responses have been documented in the HPI. ROS Other: All systems not noted in ROS Statement are negative. Past Medical History Past Medical History: Hypertension, Pneumonia Additional Past Medical History / Comment(s): Hx of sepsis r/t diverticulitis, hx of portal vein thrombosis, hx of liver abscess [facility], greatly improving, past colon polyps (bening) and diverticular disease. History of Any Multi-Drug Resistant Organisms: None Reported Past Surgical History: Bowel Resection, Hernia Repair Additional Past Surgical History / Comment(s): Umbilical hernia repair, colonoscopy/polypectomy, rhinoplasty, bilateral cataracts removed with lens implants,liver bx, PICC line, now removed. Bowel Resection (2019). Past Anesthesia/Blood Transfusion Reactions: No Reported Reaction Past Psychological History: No Psychological Hx Reported Past Alcohol Use History: Rare - Past Family History Father Family Medical History: Coronary Artery Disease (CAD) Additional Family Medical History / Comment(s): Father had CABG. He lived to be 93 yrs old. Mother Family Medical History: Dementia Additional Family Medical History / Comment(s): Mother is 88yrs old. General Exam Limitations: no limitations General appearance: alert, in no apparent distress Head exam: Present: atraumatic, normocephalic Eye exam: Present: normal appearance, EOMI Neck exam: Present: normal inspection. Absent: meningismus Respiratory exam: Present: normal lung sounds bilaterally. Absent: respiratory distress, wheezes, rales, rhonchi, stridor Cardiovascular Exam: Present: regular rate, normal rhythm, normal heart sounds. Absent: systolic murmur, diastolic murmur, rubs, gallop, clicks GI/Abdominal exam: Present: soft, tenderness, guarding. Absent: distended, rebound, rigid Neurological exam: Present: alert, oriented X3 Psychiatric exam: Present: normal affect, normal mood Skin exam: Present: warm, dry Course Vital Signs 01/26/24 01/27/24 01/27/24 22:41 01:13 03:24 Temperature 98.1 F Pulse Rate 72 66 68 Respiratory 18 18 16 Rate Blood Pressure 184/99 173/85 175/102 O2 Sat by Pulse 94 L 94 L Oximetry Medical Decision Making - Medical Decision Making Was pt. sent in by a medical professional or institution (, PA, DIRECTOR APPOINTMENT, urgent care, hospital, or prison...) When possible be specific @ -No Did you speak to anyone other than the patient for history (EMS, parent, family, police, friend...)? What history was obtained from this source @ -No Did you review nursing and triage notes (agree or disagree)? Why? @ -I reviewed and agree with nursing and triage notes Were old charts reviewed (outside hosp., previous admission, EMS record, old EKG , old radiological studies, urgent care reports/EKG's, prison records)? Report findings @ -No old charts were reviewed Differential Diagnosis (chest pain, altered mental status, abdominal pain women, abdominal pain men, vaginal bleeding, weakness, fever, dyspnea, syncope, headache, dizziness, GI bleed, back pain, seizure, CVA, palpatations, mental health, musculoskeletal)? @ -[facility] Differential Abdominal Pain Men: Appendicitis, cholecystitis, diverticulosis, ischemic bowel, pancreatitis, hepatitis, UTI, gastroenteritis, AAA, incarcerated hernia, bowel obstruction, constipation, inflammatory bowel, hepatitis, peptic ulcer disease, splenic infarction, perforated viscus, testicular torsion... This is not meant to be an all-inclusive list EKG interpreted by me (3pts min.). @ -Sinus rhythm ventricular rate 61. IA interval 170. QRS 138. QT 429. QTc 431. X-rays interpreted by me (1pt min.). @ -None done CT interpreted by me (1pt min.). @ -CT shows stranding and fluid around the head and body of the pancreas consistent with pancreatitis. Hypoenhancement of the pancreatic head concerning for developing pancreatic necrosis or cyst. This involves approximately 50 to 20% of the gland parenchyma. Dilated common bile duct measuring 1.5 cm without visible calcified duct stone. Correlate for biliary obstruction and consider MRCP as clinically indicated. Note that the density of the gallstone within the gallbladder similar to the density of the pancreas and a distal common bile duct stone would be difficult to visualize by CT. Inflammatory changes within the gastric antrum and duodenum presumed reactive to pancreatitis. Small bowel fluid levels suggesting ileus U/S interpreted by me (1pt. min.). @ -None done What testing was considered but not performed or refused? (CT, X-rays, U/S, labs)? Why? @ -None What meds were considered but not given or refused? Why? @ -None Did you discuss the management of the patient with other professionals (professionals i.e. , PA, DIRECTOR APPOINTMENT, lab, RT, psych nurse, social services director, boiling house oiler, teacher, founder and chief technical officer, assistant case manager)? Give summary @ -My attending spoke with the [facility] provider on-call who accepted admission Was smoking cessation discussed for >3mins.? @ -No Was critical care preformed (if so, how long)? @ -No Were there social determinants of health that impacted care today? How? (Homelessness, low income, unemployed, alcoholism, drug addiction, transportation, low edu. Level, literacy, decrease access to med. care, [place] [facility], rehab)? @ -Daily alcohol use Was there de-escalation of care discussed even if they declined (Discuss DNR or withdrawal of care, Hospice)? DNR status @ -No What co-morbidities impacted this encounter? (DM, HTN, Smoking, COPD, CAD, Cancer, CVA, ARF, Chemo, Hep., AIDS, mental health diagnosis, sleep apnea, morbid obesity)? @ -None Was patient admitted / discharged? Hospital course, mention meds given and route, prescriptions, significant lab abnormalities, going to OR and other pertinent info. @ -53-year-old male presenting with chief complaint of epigastric pain nausea and vomiting. History and physical exam are conducted. WBC 12.5, may be reactive secondary to vomiting. Lactic acid 2.2 sodium 136. Amylase 735 lipase 3924, patient is receiving IV fluids and pain medication. Placed NPO. Urine shows no infectious process or bleeding. CT shows evidence of pancreatitis, th ere is concern for possible developing necrosis or cyst as well as a dilated common bile duct. Patient will be admitted, GI is consulted. Patient is agreeable with this plan. I discussed this case with my attending Dr. Saenz Undiagnosed new problem with uncertain prognosis? @ -No Drug Therapy requiring intensive monitoring for toxicity (Heparin, Nitro, Insulin, Cardizem)? @ -No Were any procedures done? @ -No Diagnosis/symptom? @ -Pancreatitis Acute, or Chronic, or Acute on Chronic? @ -Acute Uncomplicated (without systemic symptoms) or Complicated (systemic symptoms)? @ -Complicated Side effects of treatment? @ -No Exacerbation, Progression, or Severe Exacerbation? @ -No Poses a threat to life or bodily function? How? (Chest pain, USA, OR, pneumonia, PE, COPD, DKA, ARF, appy, cholecystitis, CVA, Diverticulitis, Homicidal, Suicidal, threat to staff... and all critical care pts) @ -Yes - Lab Data Result diagrams: 01/26/24 23:38 01/26/24 23:38 Lab Results 01/26/24 01/26/24 01/26/24 Range/Units 23:38 23:38 23:38 WBC 12.5 H (3.8-10.6) k/uL RBC 4.65 (4.30-5.90) m/uL Hgb 16.4 (13.0-17.5) gm/dL Hct 47.6 (39.0-53.0) % MCV 102.2 H (80.0-100.0) fL MCH 35.3 H (25.0-35.0) pg MCHC 34.5 (31.0-37.0) g/dL RDW 11.8 (11.5-15.5) % Plt Count 275 (150-450) k/uL MPV 7.8 Neutrophils % 92 % Lymphocytes % 4 % Monocytes % 3 % Eosinophils % 1 % Basophils % 0 % Neutrophils # 11.5 H (1.3-7.7) k/uL Lymphocytes # 0.5 L (1.0-4.8) k/uL Monocytes # 0.4 (0-1.0) k/uL Eosinophils # 0.1 (0-0.7) k/uL Basophils # 0.0 (0-0.2) k/uL Sodium 136 L (137-145) mmol/L Potassium 3.6 (3.5-5.1) mmol/L Chloride 107 (98-107) mmol/L Carbon Dioxide 17 L (22-30) mmol/L Anion Gap 12 mmol/L BUN 13 (9-20) mg/dL Creatinine 0.49 L (0.66-1.25) mg/dL Est GFR (CKD-EPI)AfAm >90 (>60 ml/min/1.73 sqM) Est GFR (CKD-EPI)NonAf >90 (>60 ml/min/1.73 sqM) Glucose 159 H (74-99) mg/dL Lactic Ac Sepsis Rflx Plasma Lactic Acid Christian 2.2 H* (0.7-2.0) mmol/L Calcium 9.5 (8.4-10.2) mg/dL Total Bilirubin 1.3 (0.2-1.3) mg/dL AST 37 (17-59) U/L ALT 49 (4-49) U/L Alkaline Phosphatase 88 (38-126) U/L Troponin I (0.000-0.034) ng/mL Total Protein 7.7 (6.3-8.2) g/dL Albumin 4.4 (3.5-5.0) g/dL Amylase 735 H* (30-110) U/L Lipase 3924 H (23-300) U/L Urine Color Urine Appearance (Clear) Urine pH (5.0-8.0) Ur Specific Julian (1.001-1.035) Urine Protein (Negative) Urine Glucose (UA) (Negative) Urine Ketones (Negative) Urine Blood (Negative) Urine Nitrite (Negative) Urine Bilirubin (Negative) Urine Urobilinogen (<2.0) mg/dL Ur Leukocyte Esterase (Negative) 01/26/24 01/27/24 01/27/24 Range/Units 23:38 00:39 01:14 WBC (3.8-10.6) k/uL RBC (4.30-5.90) m/uL Hgb (13.0-17.5) gm/dL Hct (39.0-53.0) % MCV (80.0-100.0) fL MCH (25.0-35.0) pg MCHC (31.0-37.0) g/dL RDW (11.5-15.5) % Plt Count (150-450) k/uL MPV Neutrophils % % Lymphocytes % % Monocytes % % Eosinophils % % Basophils % % Neutrophils # (1.3-7.7) k/uL Lymphocytes # (1.0-4.8) k/uL Monocytes # (0-1.0) k/uL Eosinophils # (0-0.7) k/uL Basophils # (0-0.2) k/uL Sodium (137-145) mmol/L Potassium (3.5-5.1) mmol/L Chloride (98-107) mmol/L Carbon Dioxide (22-30) mmol/L Anion Gap mmol/L BUN (9-20) mg/dL Creatinine (0.66-1.25) mg/dL Est GFR (CKD-EPI)AfAm (>60 ml/min/1.73 sqM) Est GFR (CKD-EPI)NonAf (>60 ml/min/1.73 sqM) Glucose (74-99) mg/dL Lactic Ac Sepsis Rflx Y Plasma Lactic Acid Christian (0.7-2.0) mmol/L Calcium (8.4-10.2) mg/dL Total Bilirubin (0.2-1.3) mg/dL AST (17-59) U/L ALT (4-49) U/L Alkaline Phosphatase (38-126) U/L Troponin I <0.012 (0.000-0.034) ng/mL Total Protein (6.3-8.2) g/dL Albumin (3.5-5.0) g/dL Amylase (30-110) U/L Lipase (23-300) U/L Urine Color Light Yellow Urine Appearance Clear (Clear) Urine pH 7.5 (5.0-8.0) Ur Specific Julian 1.026 (1.001-1.035) Urine Protein Trace H (Negative) Urine Glucose (UA) Trace H (Negative) Urine Ketones 1+ H (Negative) Urine Blood Negative (Negative) Urine Nitrite Negative (Negative) Urine Bilirubin Negative (Negative) Urine Urobilinogen <2.0 (<2.0) mg/dL Ur Leukocyte Esterase Negative (Negative) 01/27/24 Range/Units 02:56 WBC (3.8-10.6) k/uL RBC (4.30-5.90) m/uL Hgb (13.0-17.5) gm/dL Hct (39.0-53.0) % MCV (80.0-100.0) fL MCH (25.0-35.0) pg MCHC (31.0-37.0) g/dL RDW (11.5-15.5) % Plt Count (150-450) k/uL MPV Neutrophils % % Lymphocytes % % Monocytes % % Eosinophils % % Basophils % % Neutrophils # (1.3-7.7) k/uL Lymphocytes # (1.0-4.8) k/uL Monocytes # (0-1.0) k/uL Eosinophils # (0-0.7) k/uL Basophils # (0-0.2) k/uL Sodium (137-145) mmol/L Potassium (3.5-5.1) mmol/L Chloride (98-107) mmol/L Carbon Dioxide (22-30) mmol/L Anion Gap mmol/L BUN (9-20) mg/dL Creatinine (0.66-1.25) mg/dL Est GFR (CKD-EPI)AfAm (>60 ml/min/1.73 sqM) Est GFR (CKD-EPI)NonAf (>60 ml/min/1.73 sqM) Glucose (74-99) mg/dL Lactic Ac Sepsis Rflx Plasma Lactic Acid Christian 1.2 (0.7-2.0) mmol/L Calcium (8.4-10.2) mg/dL Total Bilirubin (0.2-1.3) mg/dL AST (17-59) U/L ALT (4-49) U/L Alkaline Phosphatase (38-126) U/L Troponin I (0.000-0.034) ng/mL Total Protein (6.3-8.2) g/dL Albumin (3.5-5.0) g/dL Amylase (30-110) U/L Lipase (23-300) U/L Urine Color Urine Appearance (Clear) Urine pH (5.0-8.0) Ur Specific Julian (1.001-1.035) Urine Protein (Negative) Urine Glucose (UA) (Negative) Urine Ketones (Negative) Urine Blood (Negative) Urine Nitrite (Negative) Urine Bilirubin (Negative) Urine Urobilinogen (<2.0) mg/dL Ur Leukocyte Esterase (Negative) Disposition Clinical Impression: Pancreatitis Disposition: ADMITTED IP TO THIS HOSP Condition: Fair Time of Disposition: 03:04
[2024-01-27] MEDS: KETOROLAC 15 MG/ML 1 ML VIAL IVP PRN (03:21)
[2024-01-27] MEDS ORDERED: cloNIDine HCL 0.1 MG TAB PO PRN (12:38)
[2024-01-27] MEDS: METOPROLOL SUCCINATE (ER) 25 MG TAB.ER.24H PO SCH (12:53)
[2024-01-27] MEDS: HEPARIN SODIUM,PORCINE 5,000 UNIT/ML 1 ML VIAL SQ SCH (12:53)
[2024-01-27] MEDS: amLODIPine 5 MG TAB PO SCH (12:53)
[2024-01-27] MEDS: lisinopriL 10 MG TAB PO SCH (12:53)
[2024-01-27] MEDS: cloNIDine HCL 0.1 MG TAB PO SCH (13:15)
[2024-01-27] MEDS ORDERED: hydrALAZINE HCL 20 MG/ML 1 ML VIAL IVP PRN (13:38)
[2024-01-27 13:49] LABS: INR 1.1 (<1.2); Prothrombin Time 11.4 sec (10.0-12.5)
--- NOTE | 2024-01-27 13:54 | HP ---
HISTORY AND PHYSICAL CHIEF COMPLAINT: Abdominal pain. HISTORY OF PRESENT ILLNESS: This is a 63-year-old gentleman with history of hypertension, history of diverticulitis and perforation, being followed by Jenny in the outpatient complaining of anterior abdominal pain, severe. The patient was found to have acute pancreatitis, amylase and lipase elevated. The patient apparently drinks up to 3 drinks in the evening according to the daughter. There is no history of any fever, rigors, or chills. Blood pressure is elevated. PAST MEDICAL HISTORY: Hypertension, diverticulitis, perforation, rest of the history and rest of the chart is also reviewed. HOME MEDICATIONS: Reviewed include Toprol-XL, dose and rest of medications reviewed. ALLERGIES: Decongestants. FAMILY HISTORY: History of CAD, CABG. SOCIAL HISTORY: Smoking, THC, alcohol as mentioned earlier. REVIEW OF SYSTEMS: A 14-point review is negative except as mentioned earlier. PHYSICAL EXAMINATION: VITAL SIGNS: Pulse is 62, blood pressure 194/93, respirations 16. HEENT: Conjunctivae normal. NECK: No jugular venous distention. CARDIOVASCULAR: S1, S2. RESPIRATIONS: Few scattered rhonchi and crackles. ABDOMEN: Soft. NERVOUS SYSTEM: Nonfocal. LABORATORY DATA: Reviewed, sodium 130. ASSESSMENT: 1. Acute severe pancreatitis, severe abdominal pain, possibly secondary to alcohol. 2. Hypertension. 3. Elevated WBC. 4. History of pneumonia. 5. History of bowel resection and diverticulitis. 6. History of hernia repair. 7. Multiple complex medical issues. 8. Right bundle-branch block on EKG. RECOMMENDATIONS: This 63-year-old gentleman presented with multiple complex medical issues, we will monitor the patient closely. Continue current management, continue symptomatic treatment. Otherwise, I would recommend symptomatic treatment Protonix, DVT prophylaxis, gastroenterology consultation. Repeat labs. Guarded prognosis because of multiple complex medical issues. Further recommendations to follow. See orders for details. Blood pressure has been noted and recommended p.r.n. medication as well as resume the home medications. MMODL / IJN: [id number] /
--- NOTE | 2024-01-27 17:05 | P.CONS ---
History of Present Illness - Reason for Consult Consult date: 01/27/24 pancreatitis Requesting physician: Margot Barr - Chief Complaint Abdominal pain - History of Present Illness This is a pleasant 63-year-old male who presented to the emergency department with complaints of abdominal pain in the upper abdomen and epigastric region with an onset [facility] yesterday afternoon associated with nausea and vomiting. Patient states abdominal pain is anywhere from a 6-10 and he came into the emergency department for further evaluation. Past medical history includes dearly alcohol use and reports drinking 2-3 alcoholic beverages daily for many years, diverticulitis with bowel resection, and hypertension. He was noted to have elevated amylase and lipase as part of his workup and had a CT of the abdomen pelvis showing inflammation of the pancreas consistent with pancreatitis. He denies any previous history of pancreatitis in the past. Denies any new medications does state he was on amoxicillin about a week ago for a tooth infection but no other medications. WBC 12.5 hemoglobin 16.4 platelet count 275,000 INR 1.1 sodium 136 potassium 3.6 BUN 13 creatinine 0.4 lactic acid 2.2 now 1.2 total bilirubin 1.3 AST 37 ALT 49 alkaline phosphatase 88 amylase 735 lipase 3924. He reports he still has abdominal pain rates it about a 6-8, no nausea or vomiting. Review of Systems REVIEW OF SYSTEMS: CARDIOPULMONARY: No chest pain or shortness of breath. Gastrointestinal: Abdominal pain. No nausea or vomiting. No hematemesis, coffee-ground emesis. No rectal bleeding, or melena. GENITOURINARY: No dysuria or hematuria. MUSCULOSKELETAL: Reports normal range of motion., Joint pain. SKIN: No rashes. No jaundice. ENDOCRINE: No chills, fevers. No excessive weight gain or loss. No polydipsia or polyuria. PSYCHIATRIC: Unremarkable. NEUROLOGY: No change in mental status. Denies dizziness, headache. ENT: Vision unremarkable. CONSTITUTIONAL: No recent weight loss. No fever, chills, night sweats. Past Medical History Past Medical History: Hypertension, Pneumonia Additional Past Medical History / Comment(s): Hx of sepsis r/t diverticulitis, hx of portal vein thrombosis, hx of liver abscess being followed by dr fred Sparrow, greatly improving, past colon polyps (bening) and diverticular disease. History of Any Multi-Drug Resistant Organisms: None Reported Past Surgical History: Bowel Resection, Hernia Repair Additional Past Surgical History / Comment(s): Umbilical hernia repair, colonoscopy/polypectomy, rhinoplasty, bilateral cataracts removed with lens imp lants,liver bx, PICC line, now removed. Bowel Resection (2019). Past Anesthesia/Blood Transfusion Reactions: No Reported Reaction Past Psychological History: No Psychological Hx Reported Past Alcohol Use History: Rare - Past Family History Father Family Medical History: Coronary Artery Disease (CAD) Additional Family Medical History / Comment(s): Father had CABG. He lived to be 93 yrs old. Mother Family Medical History: Dementia Additional Family Medical History / Comment(s): Mother is 88yrs old. Medications and Allergies Home Medications Medication Instructions Recorded Confirmed Type Metoprolol Succinate [Toprol XL] 25 mg PO DAILY 11/08/18 01/27/24 History amLODIPine BESYLATE/BENAZEPRIL 1 cap PO DAILY 11/08/18 01/27/24 History [amLODIPine BESYLATE/BENAZEPRIL 5-10 MG] Allergies Allergy/AdvReac Type Severity Reaction Status Date / Time decongestant AdvReac INCREASES Uncoded 01/27/24 10:36 B/P Physical Exam Vitals: Vital Signs Temp Pulse Resp BP Pulse Ox 01/27/24 07:58 97.5 F L 62 16 184/96 93 L 01/27/24 05:09 66 18 171/91 94 L 01/27/24 03:24 68 16 175/102 94 L 01/27/24 01:13 66 18 173/85 94 L 01/26/24 22:41 98.1 F 72 18 184/99 Intake and Output 01/26/24 01/27/24 01/27/24 22:59 06:59 14:59 Other: Weight 79.379 kg General appearance: The patient is alert, oriented, appears in no acute distress. HET: Head is normocephalic and atraumatic. Conjunctiva pink. Sclera anicteric. Neck: Supple without lymphadenopathy. Trachea midline. Heart: Regular. Lungs: Equal expansion, normal respiratory effort. Abdomen: Soft, right upper quadrant and epigastric tenderness, mild distention. Skin: No rashes. No jaundice. Extremities: Normal skin color and turgor. No pedal edema. Neurological: No focal deficits. Alert and oriented x3. Results CBC & Chem 7: 01/26/24 23:38 01/26/24 23:38 Labs: Abnormal Lab Results - Last 24 Hours (Table) 01/26/24 01/26/24 01/26/24 Range/Units 23:38 23:38 23:38 WBC 12.5 H (3.8-10.6) k/uL MCV 102.2 H (80.0-100.0) fL MCH 35.3 H (25.0-35.0) pg Neutrophils # 11.5 H (1.3-7.7) k/uL Lymphocytes # 0.5 L (1.0-4.8) k/uL Sodium 136 L (137-145) mmol/L Carbon Dioxide 17 L (22-30) mmol/L Creatinine 0.49 L (0.66-1.25) mg/dL Glucose 159 H (74-99) mg/dL Plasma Lactic Acid Christian 2.2 H* (0.7-2.0) mmol/L Amylase 735 H* (30-110) U/L Lipase 3924 H (23-300) U/L Urine Protein (Negative) Urine Glucose (UA) (Negative) Urine Ketones (Negative) 01/27/24 Range/Units 01:14 WBC (3.8-10.6) k/uL MCV (80.0-100.0) fL MCH (25.0-35.0) pg Neutrophils # (1.3-7.7) k/uL Lymphocytes # (1.0-4.8) k/uL Sodium (137-145) mmol/L Carbon Dioxide (22-30) mmol/L Creatinine (0.66-1.25) mg/dL Glucose (74-99) mg/dL Plasma Lactic Acid Christian (0.7-2.0) mmol/L Amylase (30-110) U/L Lipase (23-300) U/L Urine Protein Trace H (Negative) Urine Glucose (UA) Trace H (Negative) Urine Ketones 1+ H (Negative) Comments: CT abdomen pelvis reports stranding and fluid around the head and body of the pancreas consistent with pancreatitis. Hypoenhancement of the pancreatic head concerning for developing pancreatic necrosis. This involves approximately 15 to 20% of the gland parenchyma. Close clinical and imaging follow-up advised. Dilated common bile duct measuring 1.5 cm without visible calcified duct stone. Correlate for biliary obstruction and consider MRCP as clinically indicated. Note that the density of the gallstone within the gallbladder similar to the density of the pancreas and a distal common bile duct stone would be difficult to visualize by CT. Inflammatory changes within the gastric antrum and duodenum presumed reactive to pancreatitis. Small bowel fluid levels suggesting ileus. Assessment and Plan (1) Pancreatitis Narrative/Plan: 63-year-old male presenting with abdominal pain with elevated amylase and lipase and CT evidence of complicated pancreatitis. Etiology likely secondary to daily alcohol use, no new medications, recently had an amoxicillin however not likely to cause pancreatitis and although CBD is reported as dilated on CT scan there is no elevation in his LFTs so likely not secondary to gallstone pancreatitis. Recommend alcohol abstinence, aggressive IV hydration antiemetics as needed and pain medications as needed. Current Visit: Yes Status: Acute Code(s): K85.90 - ACUTE PANCREATITIS WITHOUT NECROSIS OR INFECTION, UNSP SNOMED Code(s): 28051808 (2) Alcohol abuse, daily use Current Visit: Yes Status: Acute Code(s): F10.10 - ALCOHOL ABUSE, UNCOMPLICATED SNOMED Code(s): 880799153 Plan: 1. Continue symptomatic and supportive care 2. N.p.o. except for ice chips 3. Aggressive IV hydration increased to 200 mL/h 4. Antiemetics as needed 5. Pain medication as needed 6. Protonix 40 mg IV for GI prophylaxis 7. Encourage ambulation 8. Repeat CBC, CMP, amylase and lipase in the a.m. 9. Recommend alcohol abstinence 10. Monitor for alcohol withdrawal symptoms Thank you for this consultation, we will continue to follow. Dr. Andreina Hatch I agree with the dictator's note, documented as a scribe by Janell Tracy.
[2024-01-27] MEDS: PANTOPRAZOLE 40 MG/10 ML VIAL IVP SCH (20:42)
[2024-01-28 11:03] LABS: ALT 28 U/L (10-49); AST 25 U/L (14-35); Albumin 3.2 g/dL (3.8-4.9); Albumin/Globulin Ratio 1.19 Ratio (1.60-3.17); Alkaline Phosphatase 65 U/L (41-126); Amylase 215 U/L (23-121); BUN/Creat Ratio 15.67 Ratio (12.00-20.00); Blood Urea Nitrogen 9.4 mg/dL (9.0-27.0); Calcium 8.6 mg/dL (8.7-10.3); Carbon Dioxide 20.9 mmol/L (21.6-31.8); Chloride 101 mmol/L (96-109); Globulin 2.7 g/dL (1.6-3.3); Glucose 86 mg/dL (70-110); Lipase 223 U/L (14-60); Sodium 133 mmol/L (135-145); Total Bilirubin 1.1 mg/dL (0.3-1.2); Total Protein 5.9 g/dL (6.2-8.2)
[2024-01-28 11:34] LABS: Basophils # (A) 0.02 X 10*3/uL (0.00-0.10); Basophils % (A) 0.2 %; Eosinophils # (A) 0 X 10*3/uL (0.04-0.35); Eosinophils % (A) 0 %; HCT 39.1 % (39.6-50.0); HGB 13.2 g/dL (13.0-17.0); Lymphocytes # (A) 0.64 X 10*3/uL (0.90-5.00); Lymphocytes % (A) 4.9 %; MCH 35.1 pg (27.0-32.0); MCHC 33.8 g/dL (32.0-37.0); Mean Platelet Volume 11.4 FL (9.5-12.2); Monocytes # (A) 0.58 X 10*3/uL (0.20-1.00); Monocytes % (A) 4.4 %; NRBC Per 100 WBC 0 X 10*3/uL (0.00-0.01); Neutrophils % (A) 89.1 %; Platelet Count 142 X 10*3/uL (140-440); RBC 3.76 X 10*6/uL (4.40-5.60); RBC Morphology Normal (Normal); RDW 12.4 % (11.5-14.5); WBC 13.12 X 10*3/uL (4.50-10.00)
--- NOTE | 2024-01-28 12:06 | P.PN ---
Subjective This is a pleasant 63 years old male with past medical history of hypertension, alcohol use disorder Presents because of abdominal pain Patient was found to have acute pancreatitis related most likely to his alcohol use disorder He had elevated lipase and amylase and also CT of the abdomen and pelvis showing pancreatitis with hypoattenuation's of the pancreatic head concerning for pancreatic necrosis with associated dilated common bile duct 1.5 cm but there is no stone and some inflammation of the stomach and duodenum thought to be reactive as well as some ileus Patient currently treated with aggressive hydration at 200 mL/h with being n.p .o. Also is getting Toradol and clonidine for better blood pressure control and pain control He is hemodynamically stable has mild leukocytosis at 12.5 Amylase is 735 and lipase elevated 3924 Rest of labs including INR BMP liver enzymes and urine analysis were unremarkable Patient is afebrile Objective - Vital Signs Vital signs: Vital Signs Temp 98.6 F 01/28/24 01:31 Pulse 89 01/28/24 01:31 Resp 18 01/28/24 01:31 BP 131/86 01/28/24 01:31 Pulse Ox 93 L 01/28/24 01:31 FiO2 Intake & Output 01/27/24 01/28/24 01/28/24 18:59 06:59 18:59 Weight 79.379 kg Other: Voiding Method Toilet # Voids 2 2 - Exam GENERAL: The patient is alert and oriented x3, not in any acute distress. Well developed, well nourished. HEENT: Pupils are round and equally reacting to light. EOMI. No scleral icterus. No conjunctival pallor. Normocephalic, atraumatic. No pharyngeal erythema. No thyromegaly. CARDIOVASCULAR: S1 and S2 present. No murmurs, rubs, or gallops. PULMONARY: Chest is clear to auscultation, no wheezing , no crackles. -ABDOMEN: Soft, nont mild periumbilical tenderness, no rebound tenderness or guarding, nondistended, normoactive bowel sounds. No palpable organomegaly. MUSCULOSKELETAL: No joint swelling or deformity. EXTREMITIES: No cyanosis, clubbing, or pedal edema. NEUROLOGICAL: Gross neurological examination did not reveal any focal deficits. SKIN: No rashes. no petechiae. - Labs CBC & Chem 7: 01/28/24 06:20 01/28/24 06:20 Labs: Abnormal Lab Results - Last 24 Hours (Table) 01/28/24 01/28/24 Range/Units 06:20 06:20 WBC 13.12 H (4.50-10.00) X 10*3/uL RBC 3.76 L (4.40-5.60) X 10*6/uL Hct 39.1 L (39.6-50.0) % MCV 104.0 H (80.0-97.0) FL MCH 35.1 H (27.0-32.0) pg Immature Gran # 0.18 H (0.00-0.04) X 10*3/uL Neutrophils # 11.70 H (1.80-7.70) X 10*3/uL Lymphocytes # 0.64 L (0.90-5.00) X 10*3/uL Eosinophils # 0 L (0.04-0.35) X 10*3/uL Sodium 133 L (135-145) mmol/L Carbon Dioxide 20.9 L (21.6-31.8) mmol/L Calcium 8.6 L (8.7-10.3) mg/dL Total Protein 5.9 L (6.2-8.2) g/dL Albumin 3.2 L (3.8-4.9) g/dL Albumin/Globulin Ratio 1.19 L (1.60-3.17) Ratio Amylase 215 H (23-121) U/L Lipase 223 H (14-60) U/L Assessment and Plan Assessment: Acute alcoholic pancreatitis Small bowel ileus most likely reactive to above Alcohol use disorder at risk of alcohol withdrawal Plan: Bowel rest IV hydration Pain medication GI consult Patient counseled to abstinence from alcohol and he agree Continue with alcohol withdrawal monitoring and Ativan as needed Labs and medication were reviewed.. Continue same treatment. Continue with symptomatic treatment. Resume home medication. Monitor labs and vitals. DVT and GI prophylaxis. Further recommendations as per clinical course of the patient DVT prophylaxis: Subcutaneous heparin GI Prophylaxis: Pepcid PT/OT: Pending Prognosis is guarded
[2024-01-28] MEDS: HYDROcodone/APAP 5-325MG 1 EACH TAB PO PRN (13:35)
--- NOTE | 2024-01-28 16:01 | P.PN ---
Subjective Progress Note Date: 01/28/24 Principal diagnosis: Pancreatitis This is a pleasant 63-year-old male who presented to the emergency department with complaints of abdominal pain in the upper abdomen and epigastric region with an onset [facility] yesterday afternoon associated with nausea and vomiting. Patient states abdominal pain is anywhere from a 6-10 and he came into the emergency department for further evaluation. Past medical history includes dearly alcohol use and reports drinking 2-3 alcoholic beverages daily for many years, diverticulitis with bowel resection, and hypertension. He was noted to have elevated amylase and lipase as part of his workup and had a CT of the abdomen pelvis showing inflammation of the pancreas consistent with pancreatitis. He denies any previous history of pancreatitis in the past. Denies any new medications does state he was on amoxicillin about a week ago for a tooth infection but no other medications. WBC 12.5 hemoglobin 16.4 platelet count 275,000 INR 1.1 sodium 136 potassium 3.6 BUN 13 creatinine 0.4 lactic acid 2.2 now 1.2 total bilirubin 1.3 AST 37 ALT 49 alkaline phosphatase 88 amylase 735 lipase 3924. He reports he still has abdominal pain rates it about a 6-8, no nausea or vomiting. 01/28/2024 Patient seen and examined today as a follow-up. States abdominal pain in the epigastric and right upper quadrant region improved. Still has some abdominal distention. States he is passing a little gas. Denies any nausea or vomiting. Tolerating ice chips. Today total bilirubin 1.1 AST 25 ALT 28 alkaline phosphatase 65 amylase 215 lipase 223 Objective - Vital Signs Vital signs: Vital Signs Temp 98.6 F 01/28/24 01:31 Pulse 89 01/28/24 01:31 Resp 18 01/28/24 01:31 BP 131/86 01/28/24 01:31 Pulse Ox 93 L 01/28/24 01:31 FiO2 Intake & Output 01/27/24 01/28/24 01/28/24 18:59 06:59 18:59 Weight 79.379 kg Other: Voiding Method Toilet # Voids 2 2 - Exam General appearance: The patient is alert, oriented, appears in no acute distress. HET: Head is normocephalic and atraumatic. Conjunctiva pink. Sclera anicteric. Neck: Supple without lymphadenopathy. Abdomen: Soft, right upper quadrant tenderness, abdominal distention. Extremities: Normal skin color and turgor. No pedal edema Skin: No rashes, no jaundice Neurological: No focal deficits. Alert and oriented. - Labs CBC & Chem 7: 01/28/24 06:20 01/28/24 06:20 Assessment and Plan (1) Pancreatitis Narrative/Plan: 63-year-old male presenting with abdominal pain with elevated amylase and lipase and CT evidence of complicated pancreatitis. Etiology likely secondary to daily alcohol use, no new medications, recently had an amoxicillin however not likely to cause pancreatitis and although CBD is reported as dilated on CT scan there is no elevation in his LFTs so likely not secondary to gallstone pancreatitis. Recommend alcohol abstinence, aggressive IV hydration antiemetics as needed and pain medications as needed. Current Visit: Yes Status: Acute Code(s): K85.90 - ACUTE PANCREATITIS WITHOUT NECROSIS OR INFECTION, UNSP SNOMED Code(s): 82066639 (2) Alcohol abuse, daily use Current Visit: Yes Status: Acute Code(s): F10.10 - ALCOHOL ABUSE, UNCOMPLICATED SNOMED Code(s): 869579888 Plan: 1. Continue symptomatic and supportive care 2. Clear liquid diet, instructed patient to take small sips 3. Continue aggressive IV hydration 4. Antiemetics as needed 5. Pain medication as needed, encourage oral pain medications and Toradol 6. Protonix 40 mg IV for GI prophylaxis 7. Encourage ambulation 8. Repeat CBC, CMP, amylase and lipase in the a.m. 9. Recommend alcohol abstinence 10. Monitor for alcohol withdrawal symptoms Thank you for this consultation, we will continue to follow. Dr. Andreina Hatch I agree with the dictator's note, documented as a scribe by Janell Tracy.
--- NOTE | 2024-01-29 16:27 | P.PN ---
Subjective Progress Note Date: 01/29/24 Principal diagnosis: Pancreatitis This is a pleasant 63-year-old male who presented to the emergency department with complaints of abdominal pain in the upper abdomen and epigastric region with an onset [facility] yesterday afternoon associated with nausea and vomiting. Patient states abdominal pain is anywhere from a 6-10 and he came into the emergency department for further evaluation. Past medical history includes dearly alcohol use and reports drinking 2-3 alcoholic beverages daily for many years, diverticulitis with bowel resection, and hypertension. He was noted to have elevated amylase and lipase as part of his workup and had a CT of the abdomen pelvis showing inflammation of the pancreas consistent with pancreatitis. He denies any previous history of pancreatitis in the past. Denies any new medications does state he was on amoxicillin about a week ago for a tooth infection but no other medications. WBC 12.5 hemoglobin 16.4 platelet count 275,000 INR 1.1 sodium 136 potassium 3.6 BUN 13 creatinine 0.4 lactic acid 2.2 now 1.2 total bilirubin 1.3 AST 37 ALT 49 alkaline phosphatase 88 amylase 735 lipase 3924. He reports he still has abdominal pain rates it about a 6-8, no nausea or vomiting. 01/28/2024 Patient seen and examined today as a follow-up. States abdominal pain in the epigastric and right upper quadrant region improved. Still has some abdominal distention. States he is passing a little gas. Denies any nausea or vomiting. Tolerating ice chips. Today total bilirubin 1.1 AST 25 ALT 28 alkaline phosphatase 65 amylase 215 lipase 223 01/29/2024 Patient seen and examined today as a follow-up. He is sitting up in the chair. States he was up and ambulating yesterday. He is tolerating his clear liquid diet. States abdominal pain is improving. He is only taking oral pain medications. He states he is passing gas. No nausea or vomiting. LFTs continue to be normal, amylase and lipase continue to trend down 215 and 223 respectively. Objective - Vital Signs Vital signs: Vital Signs Temp 98 F 01/29/24 02:00 Pulse 80 01/29/24 02:00 Resp 16 01/29/24 02:00 BP 133/83 01/29/24 02:00 Pulse Ox 93 L 01/29/24 02:00 FiO2 Intake & Output 01/28/24 01/29/24 01/29/24 18:59 06:59 18:59 Intake Total 480 Balance 480 Intake: Oral 480 Other: Voiding Method Toilet # Voids 5 3 - Exam General appearance: The patient is alert, oriented, appears in no acute distress. HET: Head is normocephalic and atraumatic. Conjunctiva pink. Sclera anicteric. Neck: Supple without lymphadenopathy. Abdomen: Soft, mild right upper quadrant tenderness, abdominal distention improving. Extremities: Normal skin color and turgor. No pedal edema Skin: No rashes, no jaundice Neurological: No focal deficits. Alert and oriented. - Labs CBC & Chem 7: 01/28/24 06:20 01/28/24 06:20 Labs: Abnormal Lab Results - Last 24 Hours (Table) 01/28/24 01/28/24 Range/Units 06:20 06:20 WBC 13.12 H (4.50-10.00) X 10*3/uL RBC 3.76 L (4.40-5.60) X 10*6/uL Hct 39.1 L (39.6-50.0) % MCV 104.0 H (80.0-97.0) FL MCH 35.1 H (27.0-32.0) pg Immature Gran # 0.18 H (0.00-0.04) X 10*3/uL Neutrophils # 11.70 H (1.80-7.70) X 10*3/uL Lymphocytes # 0.64 L (0.90-5.00) X 10*3/uL Eosinophils # 0 L (0.04-0.35) X 10*3/uL Sodium 133 L (135-145) mmol/L Carbon Dioxide 20.9 L (21.6-31.8) mmol/L Calcium 8.6 L (8.7-10.3) mg/dL Total Protein 5.9 L (6.2-8.2) g/dL Albumin 3.2 L (3.8-4.9) g/dL Albumin/Globulin Ratio 1.19 L (1.60-3.17) Ratio Amylase 215 H (23-121) U/L Lipase 223 H (14-60) U/L Assessment and Plan (1) Pancreatitis Narrative/Plan: 63-year-old male presenting with abdominal pain with elevated amylase and lipase and CT evidence of complicated pancreatitis. Etiology likely secondary to daily alcohol use, no new medications, recently had an amoxicillin however not likely to cause pancreatitis and although CBD is reported as dilated on CT scan there is no elevation in his LFTs so likely not secondary to gallstone pancreatitis. Recommend alcohol abstinence, aggressive IV hydration antiemetics as needed and pain medications as needed. Current Visit: Yes Status: Acute Code(s): K85.90 - ACUTE PANCREATITIS WITHOUT NECROSIS OR INFECTION, UNSP SNOMED Code(s): 07791451 (2) Alcohol abuse, daily use Current Visit: Yes Status: Acute Code(s): F10.10 - ALCOHOL ABUSE, UNCOMP LICATED SNOMED Code(s): 436430849 Plan: 1. Continue symptomatic and supportive care 2. Advance to full liquid diet, then advance to low-fat diet as tolerated. Small portions. 3. May decrease IV fluids 4. Antiemetics as needed 5. Pain medication as needed, encourage oral pain medications and Toradol 6. Protonix 40 mg IV for GI prophylaxis 7. Encourage ambulation 8. Recommend alcohol abstinence 9. Anticipate discharge in the next 24 to 48 hours Thank you for allowing us to participate in the care of the patient, the GI service will sign off, gastroenterology will not be available at the hospital this weekend. If further evaluation by gastroenterology is required the patient will need transfer as per the primary team's discretion. Dr. Andreina Hatch I agree with the dictator's note, documented as a scribe by Janell Tracy.
--- NOTE | 2024-01-30 06:01 | P.PN ---
Subjective Progress Note Date: 01/29/24 This is a pleasant 63 years old male with past medical history of hypertension, alcohol use disorder Presents because of abdominal pain Patient was found to have acute pancreatitis related most likely to his alcohol use disorder He had elevated lipase and amylase and also CT of the abdomen and pelvis showing pancreatitis with hypoattenuation's of the pancreatic head concerning for pancreatic necrosis with associated dilated common bile duct 1.5 cm but there is no stone and some inflammation of the stomach and duodenum thought to be reactive as well as some ileus Patient currently treated with aggressive hydration at 200 mL/h with being n.p.o. Also is getting Toradol and clonidine for better blood pressure control and pain control He is hemodynamically stable has mild leukocytosis at 12.5 Amylase is 735 and lipase elevated 3924 Rest of labs including INR BMP liver enzymes and urine analysis were unremarkable Patient is afebrile 01/29/2024 Patient is seen and evaluated in follow-up with GI following maintained on IV hydration along with pain management. Amylase and lipase trending down and patient's diet is slowly being advanced as tolerated. Patient not tolerating much p.o. clear liquids as of yet although reports to feeling minimally improved. Patient continues with abdominal pain and reports pain is controlled with [place]. Patient is afebrile with no reports of chest pain or shortness of breath. Encouraged increase activity as tolerated with frequent walking and will follow-up with repeat labs. Review of systems: Constitutional: No reports of fatigue, fever, or chills Cardiovascular: No reports of chest pain or palpitations Respiratory: No reports of shortness of breath or cough GI: reports of occasional nausea, no vomiting, had a large bowel movement today, continued abdominal discomfort : No reports of dysuria or retention Neurovascular: No reports of weakness or numbness All medications have been reviewed Physical exam: GENERAL: The patient is alert and oriented x3. Well developed, well nourished. Elderly appearing HEENT: Pupils are round and equally reacting to light. EOMI. No scleral icterus. No conjunctival pallor. Normocephalic, atraumatic. No pharyngeal erythema. No thyromegaly. CARDIOVASCULAR: S1 and S2 present. No murmurs, rubs, or gallops. PULMONARY: Chest is clear to auscultation, no wheezing , no crackles. -ABDOMEN: Soft, nont mild periumbilical tenderness, no rebound tenderness or guarding, nondistended, normoactive bowel sounds. No palpable organomegaly. MUSCULOSKELETAL: No joint swelling or deformity. EXTREMITIES: No cyanosis, clubbing, or pedal edema. NEUROLOGICAL: Gross neurological examination did not reveal any focal deficits. SKIN: No rashes. no petechiae. Assessment: Acute alcoholic pancreatitis Small bowel ileus most likely reactive to above, improving had a bowel movement today Alcohol use disorder at risk of alcohol withdrawal Plan: Bowel rest IV hydration Pain medication GI following recommending slowly advancing diet as tolerated. Patient advanced to full liquids although not tolerating much more than clear at this time Monitoring for any withdrawal although patient is not withdrawing Encouraged to increase activity as tolerated with frequent walking and sitting the bed more often Will follow-up with repeat labs in the a.m. Once patient feels improvement and tolerating more diet consider possible discharge next 24 to 48 hours The impression and plan of care has been dictated by Emily Hughes, Nurse Practitioner as directed. Dr. Leda MD I have performed a history and examination and MDM of this patient, discussed the same with the dictator, and agree with the dictator's assessment and plan as written ,documented as a scribe. Based on total visit time, I have performed more than 50% of the visit. Objective - Vital Signs Vital signs: Vital Signs Temp 98.2 F 01/29/24 07:22 Pulse 69 01/29/24 07:22 Resp 16 01/29/24 07:22 BP 134/82 01/29/24 07:22 Pulse Ox 95 01/29/24 07:22 FiO2 Intake & Output 01/28/24 01/29/24 01/29/24 18:59 06:59 18:59 Intake Total 480 Balance 480 Intake: Oral 480 Other: Voiding Method Toilet # Voids 5 3 1 - Labs CBC & Chem 7: 01/28/24 06:20 01/28/24 06:20 Labs: Abnormal Lab Results - Last 24 Hours (Table) 01/28/24 Range/Units 06:20 WBC 13.12 H (4.50-10.00) X 10*3/uL RBC 3.76 L (4.40-5.60) X 10*6/uL Hct 39.1 L (39.6-50.0) % MCV 104.0 H (80.0-97.0) FL MCH 35.1 H (27.0-32.0) pg Immature Gran # 0.18 H (0.00-0.04) X 10*3/uL Neutrophils # 11.70 H (1.80-7.70) X 10*3/uL Lymphocytes # 0.64 L (0.90-5.00) X 10*3/uL Eosinophils # 0 L (0.04-0.35) X 10*3/uL
[2024-01-30 07:48] VITALS: RESP 17
[2024-01-30 11:38] LABS: Basophils # (A) 0.01 X 10*3/uL (0.00-0.10); Basophils % (A) 0.1 %; Eosinophils # (A) 0.04 X 10*3/uL (0.04-0.35); Eosinophils % (A) 0.4 %; HCT 33.1 % (39.6-50.0); HGB 11.4 g/dL (13.0-17.0); Lymphocytes # (A) 1.04 X 10*3/uL (0.90-5.00); Lymphocytes % (A) 11.4 %; MCHC 34.4 g/dL (32.0-37.0); MCV 101.5 FL (80.0-97.0); Mean Platelet Volume 11.2 FL (9.5-12.2); Monocytes # (A) 0.55 X 10*3/uL (0.20-1.00); NRBC Per 100 WBC 0 X 10*3/uL (0.00-0.01); Neutrophils # (A) 7.46 X 10*3/uL (1.80-7.70); Neutrophils % (A) 81.7 %; Platelet Count 175 X 10*3/uL (140-440); RBC 3.26 X 10*6/uL (4.40-5.60); WBC 9.14 X 10*3/uL (4.50-10.00)
[2024-01-30 12:28] LABS: ALT 35 U/L (10-49); AST 28 U/L (14-35); Albumin 3.1 g/dL (3.8-4.9); Albumin/Globulin Ratio 1.19 Ratio (1.60-3.17); Alkaline Phosphatase 91 U/L (41-126); Blood Urea Nitrogen 8.3 mg/dL (9.0-27.0); Calcium 8.6 mg/dL (8.7-10.3); Carbon Dioxide 21.4 mmol/L (21.6-31.8); Chloride 106 mmol/L (96-109); Globulin 2.6 g/dL (1.6-3.3); Glucose 99 mg/dL (70-110); Potassium 3.5 mmol/L (3.5-5.5); Sodium 137 mmol/L (135-145); Total Bilirubin 0.7 mg/dL (0.3-1.2); Total Protein 5.7 g/dL (6.2-8.2)
[2024-01-30 14:10] LABS: Amylase 90 U/L (23-121); Lipase 74 U/L (14-60)
[2024-01-30 14:20] VITALS: BP 111/58; PULSE 64; TEMP 97.6
== END 2024-01-30 15:51 | disposition home or self-care (01) | DRG 439 ==
LOC: EC 22:40 → 5NMEDONC 01-27 03:04 → OBSVTOIN 01-27 03:05 → 5NMEDONC 01-27 04:12
PROVIDERS: ADMIT Hospitalist; ATTEND Hospitalist
PROC: HZ2ZZZZ Detoxification Services for Substance Abuse Treatment (ICD-10-PCS; principal; 2024-01-27)
DX: K85.20 Alcohol induced acute pancreatitis without necrosis or infection (principal); K56.7 Ileus, unspecified; I10 Essential (primary) hypertension; Z87.01 Personal history of pneumonia (recurrent); Z90.49 Acquired absence of other specified parts of digestive tract; I45.10 Unspecified right bundle-branch block; F10.10 Alcohol abuse, uncomplicated; R74.8 Abnormal levels of other serum enzymes; Z79.01 Long term (current) use of anticoagulants; Z79.899 Other long term (current) drug therapy; Z82.49 Family history of ischemic heart disease and other diseases of the circulatory system; Z86.718 Personal history of other venous thrombosis and embolism; Z87.19 Personal history of other diseases of the digestive system; Z96.1 Presence of intraocular lens; Z98.42 Cataract extraction status, left eye; Z98.41 Cataract extraction status, right eye; Z88.8 Allergy status to other drugs, medicaments and biological substances
CPT/HCPCS: 36415; 74177; 80053; 81003; 82150; 83605; 83690; 83735; 84484; 85025; 85610; 93005; 96361; 96374; 96375; 96376; 99285

== ENCOUNTER → 2024-02-02 | Outpatient (CLI) | payer MEDICARE | LOC: LABPRL 09:34 | PROVIDERS: ATTEND Family Medicine | DX: K85.91 Acute pancreatitis with uninfected necrosis, unspecified (principal) | CPT/HCPCS: 80048; 85025 ==